=== PATIENT | male | born 1950 | race Caucasian/White ===

== ENCOUNTER 2020-11-22 07:06 | Outpatient (REF) | payer MEDICARE, SELFPAY ==
[2020-11-22 11:41] LABS: Alanine Aminotransferase 23 U/L (0-40); Albumin Level 3.9 g/dL (3.5-5.0); Alkaline Phosphatase 92 U/L (39-117); Anion Gap 13 (12-20); Aspartate Amino Transferase 17 U/L (5-37); Bilirubin Total 0.5 mg/dL (0.0-1.0); Blood Urea Nitrogen 16 mg/dL (9-16); Calcium 9.1 mg/dL (8.4-10.2); Carbon Dioxide 28 mmol/L (22-29); Chloride 104 mmol/L (96-108); Cholesterol 168 mg/dL; Estimated Glomerular Filt Rate > 60; Glucose Random 92 mg/dL (60-115); HDL Cholesterol 33 mg/dL; LDL Cholesterol Calculated 94 mg/dl; Potassium 4.2 mmol/L (3.3-5.1); Sodium 141 mmol/L (135-145); Total Protein 6.6 g/dL (6.5-8.0); Triglycerides 206 mg/dL
== END 2020-11-22 07:07 | disposition home or self-care (01) ==
LOC: HO.WFDLDS 07:06
PROVIDERS: Visit Provider Family Medicine
DX: Z00.00 Encounter for general adult medical examination without abnormal findings (principal)
CPT/HCPCS: 36415; 80053; 80061; 84443

== ENCOUNTER 2020-12-07 12:18 | Outpatient (REF) | payer MEDICARE, SELFPAY ==
[2020-12-07 14:41] LABS: Cholesterol 195 mg/dL; HDL Cholesterol 34 mg/dL; LDL Cholesterol Calculated 113 mg/dl; Triglycerides 240 mg/dL
[2020-12-07 14:49] LABS: Prostate Specific Antigen Scr 1.28 ng/mL (<0.05-4.0)
== END 2020-12-07 12:19 | disposition home or self-care (01) ==
LOC: HO.WFDLDS 12:18
PROVIDERS: Visit Provider Family Medicine
DX: Z12.5 Encounter for screening for malignant neoplasm of prostate (principal); E78.6 Lipoprotein deficiency
CPT/HCPCS: 36415; 80061; 84153

== ENCOUNTER 2021-04-27 07:07 | Outpatient (REF) | payer MEDICARE, SELFPAY | END 2021-04-27 07:08 | disposition home or self-care (01) | LOC: HO.HOSX 07:07 | PROVIDERS: Visit Provider Physician Assistant | DX: Z13.89 Encounter for screening for other disorder (principal) ==

== ENCOUNTER 2022-02-14 08:06 | Outpatient (REF) | payer MEDICARE, SELFPAY ==
[2022-02-14 11:02] LABS: Hematocrit 48.9 % (42.0-52.0); Hemoglobin 16.5 g/dl (14.0-18.0); Mean Corpuscular HGB Conc 33.7 g/dl (31.0-36.0); Mean Corpuscular Hemoglobin 31.9 pg (27.0-33.0); Mean Corpuscular Volume 94.6 fL (80.0-98.0); Mean Platelet Volume 10.7 fL (9.4-12.4); Platelet Count 323 X10*3/uL (160-400); Red Blood Count 5.17 X10*6/uL (4.60-5.80); Red Cell Distribution Width 14.3 % (11.0-16.0); White Blood Count 12.3 X10*3/uL (4.8-10.8)
[2022-02-14 11:48] LABS: Alanine Aminotransferase 27 U/L (0-40); Albumin Level 3.8 g/dL (3.5-5.0); Alkaline Phosphatase 97 U/L (39-117); Anion Gap 13 (12-20); Aspartate Amino Transferase 19 U/L (5-37); Bilirubin Total 0.4 mg/dL (0.0-1.0); Blood Urea Nitrogen 9 mg/dL (9-16); Calcium 8.4 mg/dL (8.4-10.2); Carbon Dioxide 23 mmol/L (22-29); Chloride 105 mmol/L (96-108); Cholesterol 186 mg/dL; Estimated Glomerular Filt Rate > 60; Glucose Fasting 113 mg/dL (60-99); HDL Cholesterol 40 mg/dL; LDL Cholesterol Calculated 82 mg/dl; Potassium 3.8 mmol/L (3.3-5.1); Sodium 137 mmol/L (135-145); TSH reflex Free T4 1.14 uIU/mL (0.32-4.0); Total Protein 6.8 g/dL (6.5-8.0); Triglycerides 323 mg/dL
== END 2022-02-14 08:07 | disposition home or self-care (01) ==
LOC: HO.WFDLDS 08:06
PROVIDERS: Visit Provider Hospitalist
DX: Z00.00 Encounter for general adult medical examination without abnormal findings (principal); M54.12 Radiculopathy, cervical region
CPT/HCPCS: 36415; 80053; 80061; 84443; 85027

== ENCOUNTER 2022-02-27 11:25 | Outpatient (REF) | payer MEDICARE, SELFPAY ==
[2022-02-27 14:14] LABS: MANUAL DIFF FLAG NO
[2022-02-27 14:22] LABS: Basophils Absolute Auto 0.1 X10*3/uL (0.0-0.2); Basophils Percent Auto 1.3 % (0-2); Eosinophils Absolute Auto 0.5 X10*3/uL (0.0-0.4); Eosinophils Percent Auto 5.2 % (0-4); Hematocrit 47.3 % (42.0-52.0); Hemoglobin 16.1 g/dl (14.0-18.0); Imm Gran Abs Auto 0.07 X10*3/uL (0.00-0.03); Imm Gran Pct Auto 0.7 % (0.0-0.4); Lymphocytes Absolute Auto 2.2 X10*3/uL (1.2-4.9); Lymphocytes Percent Auto 21.6 % (20-40); Mean Corpuscular Hemoglobin 32.3 pg (27.0-33.0); Mean Platelet Volume 10.8 fL (9.4-12.4); Monocytes Absolute Auto 0.9 X10*3/uL (0.1-1.2); Monocytes Percent Auto 8.5 % (2-11); Neutrophils Absolute Auto 6.5 x10*3/uL (2.0-8.3); Neutrophils Percent Auto 62.7 % (45-73); Platelet Count 329 X10*3/uL (160-400); Red Blood Count 4.98 X10*6/uL (4.60-5.80); Red Cell Distribution Width 14.5 % (11.0-16.0); White Blood Count 10.3 X10*3/uL (4.8-10.8)
== END 2022-02-27 11:26 | disposition home or self-care (01) ==
LOC: HO.WFDLDS 11:25
PROVIDERS: Visit Provider Hospitalist
DX: D72.829 Elevated white blood cell count, unspecified (principal)
CPT/HCPCS: 36415; 85025

== ENCOUNTER 2022-09-10 11:38 | Outpatient (REF) | payer MEDICARE, SELFPAY ==
[2022-09-10 14:22] LABS: Hematocrit 45.9 % (42.0-52.0); Hemoglobin 15.3 g/dl (14.0-18.0); Mean Corpuscular HGB Conc 33.3 g/dl (31.0-36.0); Mean Corpuscular Hemoglobin 32.3 pg (27.0-33.0); Mean Corpuscular Volume 96.8 fL (80.0-98.0); Mean Platelet Volume 10.6 fL (9.4-12.4); Platelet Count 370 X10*3/uL (160-400); Red Blood Count 4.74 X10*6/uL (4.60-5.80); Red Cell Distribution Width 14.6 % (11.0-16.0)
[2022-09-10 15:05] LABS: Anion Gap 15 (12-20); Atypical Lymph Absolute Manual 0.2 x10*3/uL; Atypical Lymphs Percent Manual 1 % (0-6); Band Neutrophils Percent 3 % (3-5); Basophils Abs Manual 0.2 X10*3/uL (0.0-0.2); Basophils Percent Manual 1 % (0-2); Blood Urea Nitrogen 12 mg/dL (9-16); Calcium 8.2 mg/dL (8.4-10.2); Carbon Dioxide 27 mmol/L (22-29); Chloride 104 mmol/L (96-108); Eosinophils Absolute Manual 0.2 X10*3/uL (0.0-0.4); Eosinophils Percent Manual 1 % (0-4); Estimated Glomerular Filt Rate > 60; Glucose Random 92 mg/dL (60-115); Lymphocytes Absolute Manual 3.8 X10*3/uL (1.2-4.9); Lymphocytes Percent Manual 19 % (20-40); Monocytes Percent Manual 10 % (2-11); Neutrophils Absolute Manual 13.6 X10*3/uL (2.0-8.3); Neutrophils Percent Manual 65 % (45-73); Potassium 3.5 mmol/L (3.3-5.1); Sodium 142 mmol/L (135-145)
[2022-09-10 15:11] LABS: Platelet Estimate NORMAL (NORMAL); Platelet Morphology Comment NORMAL; RBC Morphology NORMAL
== END 2022-09-10 11:39 | disposition home or self-care (01) ==
LOC: HO.WFDLDS 11:38
PROVIDERS: Visit Provider Family Medicine
DX: Z00.00 Encounter for general adult medical examination without abnormal findings (principal); J44.9 Chronic obstructive pulmonary disease, unspecified
CPT/HCPCS: 36415; 80048; 85007; 85027

== ENCOUNTER → 2022-10-22 11:52 | Outpatient (BNVA) | payer MEDICARE, SELFPAY | PROVIDERS: PCP Family Medicine; Visit Provider Physician Assistant | DX: K59.00 Constipation, unspecified (principal); R13.10 Dysphagia, unspecified; Z87.19 Personal history of other diseases of the digestive system | CPT/HCPCS: 99202 ==

== ENCOUNTER 2023-03-26 10:17 | Outpatient (AMB) | payer MEDICARE, SELFPAY ==
--- NOTE | 2023-03-26 10:23 | MHC.PC.OV ---
Vital Signs 03/26/23 10:25 Height 5 ft 6 in Weight 189 lb 4 oz BMI 30.5 BP 122/78 Blood Pressure Location Lt brachial Position Sitting Pulse 75 Pulse Source Pulse Oximeter Temp 97.8 F Temp Source Oral Pulse Oximetry (%) 95 Oxygen Delivery Method Room Air Intake Visit Reasons: Abdominal Pain Intake Note: Patient is here with abdominal pain for the last 2 weeks. There times when he did not make it to the bathroom. Allergies No Known Allergies Allergy (Verified 03/26/23 10:28) Tobacco use date assessed: 03/26/23 Fall risk assessment: No Falls in past year Last assessed Fall Risk: 03/26/23 Dental Screening Dental Screen Date: 03/26/23 Did you have a dental visit in the last 12 months?: No Did you have a dental problem in the last 6 months where you did not have access to dental care?: No Was dental information given to patient?: Patient declined HPI Abdominal Pain HPI Details 72 y/o male presents with complaints of abdominal pain x2 weeks and diarrhea. He reports there had been times when he had not been able to make it to the bathroom. He reports every morning between 5am - 8am he had been experiencing abdominal pain and diarrhea. He also reports stool incontinence but does note that sometimes he feels like he is unable to go. He has been taking peptobismal which does not help. He denies any burning. He denies excessive gas. Pt notes he drinks a couple of the 16 ounce water bottles a day. [facility] Medical History COPD (chronic obstructive pulmonary disease) Esophagitis Hearing loss Hernia, hiatal OCD (obsessive compulsive disorder) Shoulder arthritis Sleep apnea Surgical History History of placement of ear tubes Hx of cholecystectomy Family History Father Advanced dementia Mother Stroke Heart problem Social History Housing: House Alcohol intake: former Year quit: 2019 Patient Tobacco Use Status: Current someday Tobacco user Tobacco use type: Cigarette Cigarettes Per Day: 6 Years Smoked: 50 e-Cigarette/Vaping Use: Never Used service: No Current occupational status: disabled Current occupational exposures/hazards: No Cognitive needs: No Hearing needs: No Vision needs: No Questionnaire Thrive Questionnaire Date Thrive assessed: 10/09/22 ANETTE-7 AMB Questionnaire ANETTE-7 Date ANETTE - 7 assessed: 01/21/23 Source: Developed by Drs. Lui Mckeon, Mitra Lux, Efrem Chacko and colleagues, with an educational mae from [employer]. Review of Systems Const Denies chills, Denies fatigue, Denies fever(s), Denies headache(s) and Denies weakness ENT Denies dizziness and Denies headache(s) Card Denies dyspnea Resp Denies cough, Denies dyspnea, Denies wheezing and Denies other (shortness of breath) GI Reports abdominal pain, Reports fecal incontinence and Reports diarrhea Musc Denies numbness and Denies tingling Neuro Denies dizziness, Denies headache(s), Denies numbness, Denies tingling and Denies weakness Psych Denies anxiety and Denies depression Endo Denies fatigue Aller/Immun Denies wheezing Physical exam (Primary Care) Vital Signs: Last Vital Signs Temp 97.8 F 03/26/23 10:25 Pulse 75 03/26/23 10:25 BP 122/78 03/26/23 10:25 Pulse Ox 95 03/26/23 10:25 Oxygen Delivery Method Room Air 03/26/23 10:25 BMI result Body Mass Index 30.5 Tobacco/Smoking Status: Tobacco use Status Tobacco use date assessed 03/26/23 03/26/23 10:32 Patient Tobacco Use Status Current someday Tobacco 03/26/23 10:32 Tobacco use type Cigarette 03/26/23 10:32 e-Cigarette/Vaping Use Never Used 03/26/23 10:32 Thrive Assessment: Date of Thrive Assessment Date Thrive assessed 10/09/22 03/26/23 10:32 Const General: well developed; No acute distress Nutritional Appearance: well nourished Orientation/consciousness: patient oriented x3 HENMT Head: Yes normocephalic and Yes atraumatic Eyes General: appearance normal, both eyes and all related structures Pupils: Equal, round and reactive pupils present EOM: EOMs intact bilaterally Resp Effort & Inspection: normal respiratory effort Neuro General: patient oriented x3 and gait normal Cranial nerves: Yes Equal, round and reactive pupils present Psych Affect: normal affect Assessment and Plan Assessment & Plan (1) Abdominal pain: Code(s): R10.9 - Unspecified abdominal pain Plan: Abdominal pain with constipation and diarrhea. Possibly secondary to constipation but will check an x-ray to rule out partial obstruction. Will check labs to rule out infection Increase hydration Soluble fiber Will follow-up on labs and imaging and call patient if action is required. He will let me know if not improving. Would refer to GI (2) Diarrhea: Code(s): R19.7 - Diarrhea, unspecified Orders: Orders Comprehensive Met. Panel Today R10.9 - Unspecified abdominal pain Complete Blood Count Auto Diff Today R10.9 - Unspecified abdominal pain, Z00.00 - Encounter for general adult medical examination without abnormal findings CDiff Gene PCR Today R10.9 - Unspecified abdominal pain GI Panel Today R10.9 - Unspecified abdominal pain UA and rflx microscopic Today R10.9 - Unspecified abdominal pain, Z00.00 - Encounter for general adult medical examination without abnormal findings XR KUB Today R10.9 - Unspecified abdominal pain Medications: New calcium polycarbophil (FiberCon) 625 mg PO BID 60 tabs 2RF 30 days Coding Level of Care Code Est Pt Level 3 (21064) Diagnoses Abdominal pain R10.9 Diarrhea R19.7
[2023-03-26 10:25] VITALS: BP 122/78; PULSE 75; TEMP 36.6; O2SAT 95; BMI 30.5
== END 2023-03-26 11:55 | disposition home or self-care (01) ==
PROVIDERS: PCP Family Medicine; Visit Provider Family Medicine
DX: R10.9 Unspecified abdominal pain (principal); R19.7 Diarrhea, unspecified
CPT/HCPCS: 99213

== ENCOUNTER 2023-03-26 11:55 | Outpatient (REF) | payer MEDICARE, SELFPAY ==
[2023-03-26 14:33] LABS: MANUAL DIFF FLAG NO
[2023-03-26 14:37] LABS: Basophils Absolute Auto 0.2 X10*3/uL (0.0-0.2); Basophils Percent Auto 1.1 % (0-2); Eosinophils Absolute Auto 0.4 X10*3/uL (0.0-0.4); Hemoglobin 17.8 g/dl (14.0-18.0); Imm Gran Pct Auto 0.7 % (0.0-0.4); Lymphocytes Absolute Auto 2.3 X10*3/uL (1.2-4.9); Lymphocytes Percent Auto 16.7 % (20-40); Mean Corpuscular HGB Conc 34.2 g/dl (31.0-36.0); Mean Corpuscular Hemoglobin 31.6 pg (27.0-33.0); Mean Corpuscular Volume 92.4 fL (80.0-98.0); Mean Platelet Volume 10.8 fL (9.4-12.4); Monocytes Absolute Auto 1.2 X10*3/uL (0.1-1.2); Monocytes Percent Auto 8.5 % (2-11); Neutrophils Absolute Auto 9.4 x10*3/uL (2.0-8.3); Platelet Count 366 X10*3/uL (160-400); Red Blood Count 5.63 X10*6/uL (4.60-5.80); Red Cell Distribution Width 13.9 % (11.0-16.0); White Blood Count 13.5 X10*3/uL (4.8-10.8)
[2023-03-26 15:09] LABS: Alanine Aminotransferase 26 U/L (0-40); Albumin Level 3.8 g/dL (3.5-5.0); Alkaline Phosphatase 80 U/L (39-117); Anion Gap 10 (12-20); Aspartate Amino Transferase 21 U/L (5-37); Bilirubin Total 0.6 mg/dL (0.0-1.0); Blood Urea Nitrogen 8 mg/dL (9-16); Calcium 9.2 mg/dL (8.4-10.2); Carbon Dioxide 27 mmol/L (22-29); Chloride 105 mmol/L (96-108); Estimated Glomerular Filt Rate > 60; Glucose Random 92 mg/dL (60-115); Potassium 3.2 mmol/L (3.3-5.1); Sodium 139 mmol/L (135-145); Total Protein 6.7 g/dL (6.5-8.0)
== END 2023-03-26 11:56 | disposition home or self-care (01) ==
LOC: HO.WFDLDS 11:55
PROVIDERS: Visit Provider Family Medicine
DX: Z00.00 Encounter for general adult medical examination without abnormal findings (principal); R10.9 Unspecified abdominal pain
CPT/HCPCS: 36415; 80053; 85025

== ENCOUNTER 2023-03-28 15:09 | Outpatient (REF) | payer MEDICARE, SELFPAY ==
--- NOTE | ~2023-03-28 | XR_ITS ---
EXAMINATION: XR ABDOMEN KUB CLINICAL INDICATION: Abdominal pain COMPARISON: None available. TECHNIQUE: AP view of the abdomen. FINDINGS: No dilated loops of bowel or air-fluid levels to suggest obstruction. No evidence of free air. No calcifications. Surgical clips in the right upper quadrant suggestive of previous cholecystectomy. Mild degenerative changes of the lower lumbar spine and hip joints. XR/XR KUB IMPRESSION: Unremarkable examination.
== END 2023-03-28 15:10 | disposition home or self-care (01) ==
LOC: HO.XRAY 15:09
PROVIDERS: PCP Family Medicine; Visit Provider Family Medicine
DX: R10.9 Unspecified abdominal pain (principal)
CPT/HCPCS: 74018

== ENCOUNTER 2023-04-11 11:19 | Outpatient (REF) | payer MEDICARE, SELFPAY ==
[2023-04-11 15:18] LABS: Appearance Urine Clear; Color Urine Dark Yellow; Glucose Urine UA Negative (Negative); Leukocyte Esterase Urine Negative (Negative); Nitrite Urine Negative (Negative); Urine Blood Negative (Negative); Urine Ketones Negative (Negative); Urine Protein Trace mg/dL (Neg-Trace)
[2023-04-11 17:49] LABS: CDiff Gene PCR NEGATIVE (Negative)
== END 2023-04-11 11:20 | disposition home or self-care (01) ==
LOC: HO.WFDLDS 11:19
PROVIDERS: Visit Provider Family Medicine
DX: Z00.00 Encounter for general adult medical examination without abnormal findings (principal); R10.9 Unspecified abdominal pain
CPT/HCPCS: 81003; 87493

== ENCOUNTER 2023-04-17 13:24 | Outpatient (AMB) | payer MEDICARE, SELFPAY ==
[2023-04-17 13:42] VITALS: BP 120/70; PULSE 63; O2SAT 97; BMI 29.7
--- NOTE | 2023-04-17 13:42 | MHC.PC.OV ---
Vital Signs 04/17/23 13:42 Height 5 ft 6 in Weight 184 lb 2 oz BMI 29.7 BP 120/70 Blood Pressure Location Lt brachial Position Sitting Pulse 63 Pulse Source Pulse Oximeter Pulse Oximetry (%) 97 Oxygen Delivery Method Room Air Intake Visit Reasons: f/u abdomen pain Intake Note: Patient is here to follow up on abdominal pain, not feeling much better, and a lot of soft stool going through him. Allergies No Known Allergies Allergy (Verified 04/17/23 13:43) Tobacco use date assessed: 04/17/23 Fall risk assessment: No Falls in past year Last assessed Fall Risk: 04/17/23 HPI f/u abdomen pain HPI Details 72 y/o male presents to f/u abdominal pain. Had recommended him to increase hydration last office visit and prescribed FiberCon. KUB X-ray 03/28/23 was unremarkable. Pt reports ongoing abd. pain. He reports soft stools. They report he continues drinking plenty of water. He does not have a GI specialist. [facility] Medical History COPD (chronic obstructive pulmonary disease) Esophagitis Hearing loss Hernia, hiatal OCD (obsessive compulsive disorder) Shoulder arthritis Sleep apnea Surgical History History of placement of ear tubes Hx of cholecystectomy Family History Father Advanced dementia Mother Stroke Heart problem Social History Housing: House Alcohol intake: former Year quit: 2019 Patient Tobacco Use Status: Current someday Tobacco user Tobacco use type: Cigarette Cigarettes Per Day: 6 Years Smoked: 50 e-Cigarette/Vaping Use: Never Used service: No Current occupational status: disabled Current occupational exposures/hazards: No Cognitive needs: No Hearing needs: No Vision needs: No Questionnaire Thrive Questionnaire Date Thrive assessed: 10/09/22 ANETTE-7 AMB Questionnaire ANETTE-7 Date ANETTE - 7 assessed: 01/21/23 Source: Developed by Drs. Lui Mckeon, Mitra Lux, Efrem Chacko and colleagues, with an educational mae from [employer]. Physical exam (Primary Care) Vital Signs: Last Vital Signs Pulse 63 04/17/23 13:42 BP 120/70 04/17/23 13:42 Pulse Ox 97 04/17/23 13:42 Oxygen Delivery Method Room Air 04/17/23 13:42 BMI result Body Mass Index 29.7 Tobacco/Smoking Status: Tobacco use Status Tobacco use date assessed 04/17/23 04/17/23 13:44 Patient Tobacco Use Status Current someday Tobacco 04/17/23 13:44 Tobacco use type Cigarette 04/17/23 13:44 e-Cigarette/Vaping Use Never Used 04/17/23 13:44 Thrive Assessment: Date of Thrive Assessment Date Thrive assessed 10/09/22 04/17/23 13:44 Assessment and Plan Assessment & Plan (1) Abdominal pain: Code(s): R10.9 - Unspecified abdominal pain Plan: Ongoing abdominal discomfort/pain and diarrhea. High white count at last lab draw but patient currently in no acute distress does not look ill. Has not gotten GI panel done yet. C diff was negative. Also has mildly low potassium level. Will repeat CBC and labs including potassium and he will also get GI panel done. If no evidence of GI tract infection, he can use Imodium Advised he hydrate well and eat small frequent meals of foods that least exacerbate symptoms. Referred to GI (2) Diarrhea: Code(s): R19.7 - Diarrhea, unspecified Plan: As above (3) Leukocytosis: Code(s): D72.829 - Elevated white blood cell count, unspecified Plan: Elevated white count. No fevers. Patient looks well and is in no acute distress Rechecking CBC If own related to GI issues, may need a referral to Hematology-Oncology. (4) Hypokalemia: Code(s): E87.6 - Hypokalemia Plan: Mildly low potassium and patient has had chronic diarrhea which is the most likely cause of his low potassium level. Encouraged regular meals as tolerated working on controlling diarrhea (5) Cervical radiculopathy: Code(s): M54.12 - Radiculopathy, cervical region Plan: Left arm and hand tingling and numbness with some mild neck pain Likely cervical radiculopathy. He has no significant weakness of his left upper extremity. Circulation is normal. Start physical therapy He will let me know if it is not improving and we can refer him to Ortho for consideration of injection therapy Trial diclofenac gel. Orders: Orders Comprehensive Met. Panel Today R10.9 - Unspecified abdominal pain GI Panel Today R19.7 - Diarrhea, unspecified Leukocytes Stool Qualitative Today R19.7 - Diarrhea, unspecified Complete Blood Count Auto Diff Today R10.9 - Unspecified abdominal pain, Z00.00 - Encounter for general adult medical examination without abnormal findings PT Evaluation and Treatment Today M54.12 - Radiculopathy, cervical region Referrals Gastroenterology Referral R10.9 - Unspecified abdominal pain, R19.7 - Diarrhea, unspecified Medications: New diclofenac sodium 1% apply to single elbow, wrist or hand; for hand includes palm/fingers/back of hand 2 grams topical QID 100 grams 1RF 30 days Coding Level of Care Code Est Pt Level 4 (05389) Diagnoses Abdominal pain R10.9 Diarrhea R19.7 Leukocytosis D72.829 Hypokalemia E87.6 Cervical radiculopathy M54.12
== END 2023-04-17 14:30 | disposition home or self-care (01) ==
PROVIDERS: PCP Family Medicine; Visit Provider Family Medicine
DX: R10.9 Unspecified abdominal pain (principal); R19.7 Diarrhea, unspecified; D72.829 Elevated white blood cell count, unspecified; E87.6 Hypokalemia; M54.12 Radiculopathy, cervical region
CPT/HCPCS: 99214

== ENCOUNTER 2023-04-17 16:18 | Outpatient (REF) | payer MEDICARE, SELFPAY ==
[2023-04-18 15:41] LABS: Adenovirus F 40/41 Not Detected (Not Detect.); Astrovirus Not Detected (Not Detect.); Campylobacter Not Detected (Not Detect.); Cryptosporidium Not Detected (Not Detect.); Cyclospora cayetanensis Not Detected (Not Detect.); E. coli EAEC Not Detected (Not Detect.); E. coli EPEC Not Detected (Not Detect.); E. coli ETEC Not Detected (Not Detect.); E. coli STEC Not Detected (Not Detect.); Entamoeba histolytica Not Detected (Not Detect.); Giardia lamblia Not Detected (Not Detect.); Norovirus GI/GII Not Detected (Not Detect.); Plesiomonas shigelloides Not Detected (Not Detect.); Rotavirus A Not Detected (Not Detect.); Salmonella Not Detected (Not Detect.); Sapovirus Not Detected (Not Detect.); Shigella sp./EIEC Not Detected (Not Detect.); Vibrio Not Detected (Not Detect.); Vibrio Cholerae Not Detected (Not Detect.); Yersinia enterocolitica Not Detected (Not Detect.)
== END 2023-04-17 16:19 | disposition home or self-care (01) ==
LOC: HO.LNP 16:18
PROVIDERS: Visit Provider Family Medicine
DX: R19.7 Diarrhea, unspecified (principal)
CPT/HCPCS: 87507

== ENCOUNTER 2023-04-18 12:27 | Outpatient (REF) | payer MEDICARE, SELFPAY ==
[2023-04-18 14:27] LABS: MANUAL DIFF FLAG NO
[2023-04-18 14:40] LABS: Basophils Absolute Auto 0.1 X10*3/uL (0.0-0.2); Basophils Percent Auto 1.1 % (0-2); Eosinophils Absolute Auto 0.6 X10*3/uL (0.0-0.4); Eosinophils Percent Auto 4.8 % (0-4); Hematocrit 52.7 % (42.0-52.0); Hemoglobin 17.9 g/dl (14.0-18.0); Imm Gran Abs Auto 0.06 X10*3/uL (0.00-0.03); Imm Gran Pct Auto 0.5 % (0.0-0.4); Lymphocytes Absolute Auto 2.3 X10*3/uL (1.2-4.9); Mean Corpuscular Hemoglobin 31.7 pg (27.0-33.0); Mean Corpuscular Volume 93.3 fL (80.0-98.0); Mean Platelet Volume 11.5 fL (9.4-12.4); Monocytes Absolute Auto 1.2 X10*3/uL (0.1-1.2); Monocytes Percent Auto 9.4 % (2-11); Neutrophils Absolute Auto 8.6 x10*3/uL (2.0-8.3); Neutrophils Percent Auto 66.2 % (45-73); Platelet Count 297 X10*3/uL (160-400); Red Blood Count 5.65 X10*6/uL (4.60-5.80); Red Cell Distribution Width 14.2 % (11.0-16.0)
[2023-04-18 15:02] LABS: Leukocytes Stool Qualitative NEGATIVE (NEGATIVE)
[2023-04-18 15:08] LABS: Alanine Aminotransferase 39 U/L (0-40); Albumin Level 3.6 g/dL (3.5-5.0); Alkaline Phosphatase 82 U/L (39-117); Anion Gap 16 (12-20); Aspartate Amino Transferase 35 U/L (5-37); Bilirubin Total 0.6 mg/dL (0.0-1.0); Blood Urea Nitrogen 7 mg/dL (9-16); Calcium 9.1 mg/dL (8.4-10.2); Carbon Dioxide 25 mmol/L (22-29); Chloride 103 mmol/L (96-108); Estimated Glomerular Filt Rate > 60; Glucose Random 80 mg/dL (60-115); Potassium 3.7 mmol/L (3.3-5.1); Sodium 140 mmol/L (135-145); Total Protein 6.9 g/dL (6.5-8.0)
== END 2023-04-18 12:28 | disposition home or self-care (01) ==
LOC: HO.WFDLDS 12:27
PROVIDERS: Visit Provider Family Medicine
DX: Z00.00 Encounter for general adult medical examination without abnormal findings (principal); R10.9 Unspecified abdominal pain; R19.7 Diarrhea, unspecified
CPT/HCPCS: 36415; 80053; 85025; 89055

== ENCOUNTER 2023-04-22 11:52 | Outpatient (AMB) | payer MEDICARE, SELFPAY ==
--- NOTE | 2023-04-22 12:01 | A.OFFPC_ITS ---
Vital Signs 04/22/23 12:02 Height 5 ft 6 in Weight 185 lb BMI 29.9 BP 124/76 Blood Pressure Location Lt brachial Position Sitting Respiration 12 Pulse 84 Pulse Source Pulse Oximeter Temp 97.1 F Temp Source Temporal Artery Scan Pulse Oximetry (%) 94 Oxygen Delivery Method Room Air Intake Visit Reasons: mood disorder [employer] Required: No Accompanied by: Self / Same As Patient Allergies No Known Allergies Allergy (Verified 04/22/23 12:07) Tobacco use date assessed: 04/17/23 Fall risk assessment: No Falls in past year Last assessed Fall Risk: 04/22/23 Dental Screening Dental Screen Date: 04/22/23 Did you have a dental visit in the last 12 months?: No Did you have a dental problem in the last 6 months where you did not have access to dental care?: No Was dental information given to patient?: Yes HPI mood disorder HPI Details 72 y/o male presents today to discuss mo od disorder. Also f/u GI issues. He had ongoing abdominal pain and diarrhea. He notes he continues to drink plenty of water and notes his diarrhea has improved. Pt notes he is on fluoxetine 20mg which he has been using to control his anxiety/irritability. He notes he is no longer taking quetiapine 75mg. [facility] Medical History OCD (obsessive compulsive disorder) Sleep apnea Shoulder arthritis Hearing loss Esophagitis Hernia, hiatal COPD (chronic obstructive pulmonary disease) Surgical History History of placement of ear tubes Hx of cholecystectomy Family History Father Advanced dementia Mother Stroke Heart problem Social History Housing: Apartment Alcohol intake: former Year quit: 2019 Patient Tobacco Use Status: Current someday Tobacco user Tobacco use type: Cigarette Cigarettes Per Day: 6 Years Smoked: 50 e-Cigarette/Vaping Use: Never Used service: No Current occupational status: retired and disabled Current occupational exposures/hazards: No Cognitive needs: No Hearing needs: No Vision needs: No Questionnaire PHQ-9 Over the last 2 weeks, how often have you been bothered by any of the following problems? 1. Little interest or pleasure in doing things: not at all 2. Feeling down, depressed, or hopeless: not at all 3. Trouble falling or staying asleep, or sleeping too much: not at all 4. Feeling tired or having little energy: not at all 5. Poor appetite or overeating: not at all 6. Feeling bad about yourself - or that you are a failure or have let yourself or your family down: not at all 7. Trouble concentrating on things, such as reading the newspaper or watching television: not at all 8. Moving or speaking so slowly that other people could have noticed. Or the opposite - being so fidgety or restless that you have been moving around a lot more than usual: not at all 9. Thoughts that you would be better off or of hurting yourself in some way: not at all Total score: 0 Depression Screening Interpretation: Negative 81561 - PHQ-9 Billing: Yes Source: Developed by Drs. Lui Mckeon, Efrem Rizvi and colleagues, with an educational mae from [employer] Thrive Questionnaire Date Thrive assessed: 10/09/22 ANETTE-7 AMB Questionnaire ANETTE-7 Date ANETTE - 7 assessed: 04/22/23 Feeling nervous, anxious, or on edge: 0 = Not at all Not being able to stop or control worryin = Not at all Worrying too much about different things: 0 = Not at all Trouble relaxin = Not at all Being so restless that it is hard to sit still: 0 = Not at all Becoming easily annoyed or irritable: 0 = Not at all Feeling afraid as if something awful might happen: 0 = Not at all Total ANETTE-7 score (0-4 normal; 5-9 mild; 10-14 moderate; 15-21 severe): 0 Source: Developed by Drs. Lui Mckeon, Efrem Rizvi and colleagues, with an educational mae from [employer] ANETTE-7 Assessment Billing ANETTE-7 Assessment Tool: ANETTE-7 Assessment 25675 Review of Systems Const Denies chills, Denies fatigue, Denies fever(s), Denies headache(s) and Denies weakness ENT Denies dizziness and Denies headache(s) Card Denies chest pain, Denies lightheadedness, Denies dyspnea and Denies other (Palpitations) Resp Denies cough, Denies dyspnea, Denies wheezing and Denies other ( shortness of breath) Musc Denies numbness and Denies tingling Neuro Denies dizziness, Denies headache(s), Denies numbness, Denies tingling, Denies paresthesias and Denies weakness Psych Denies anxiety and Denies depression Endo Denies fatigue Aller/Immun Denies wheezing Physical exam (Primary Care) Vital Signs: Last Vital Signs Temp 97.1 F 04/22/23 12:02 Pulse 84 04/22/23 12:02 Resp 12 04/22/23 12:02 BP 124/76 04/22/23 12:02 Pulse Ox 94 04/22/23 12:02 Oxygen Delivery Method Room Air 04/22/23 12:02 BMI result Body Mass Index 29.9 Tobacco/Smoking Status: Tobacco use Status Tobacco use date assessed 04/17/23 04/22/23 12:09 Patient Tobacco Use Status Current someday Tobacco 04/22/23 12:09 Tobacco use type Cigarette 04/22/23 12:09 e-Cigarette/Vaping Use Never Used 04/22/23 12:09 PHQ-9: PHQ-9 Score PHQ-9: Total score 0 04/22/23 12:51 Depression Screening Interpretation: Negative Thrive Assessment: Date of Thrive Assessment Date Thrive assessed 10/09/22 04/22/23 12:09 Const General: no acute distress and well developed Nutritional Appearance: well nourished Orientation/consciousness: patient oriented x3 [facility] Head: Yes normocephalic and Yes atraumatic Eyes General: appearance normal, both eyes and all related structures Pupils: Equal, round and reactive pupils present EOM: EOMs intact bilaterally Resp Other: Clear with some secretion sounds Effort & Inspection: normal respiratory effort Cardio Rate: regular rate Rhythm: regular rhythm Heart sounds: S1 normal heart sound present, S2 normal heart sound present, no gallops, no murmurs and no rubs Neuro General: patient oriented x3 and gait normal Cranial nerves: Yes Equal, round and reactive pupils present Psych Affect: normal affect Assessment and Plan Assessment & Plan (1) Abdominal pain: Code(s): R10.9 - Unspecified abdominal pain Plan: Improving Stool studies and fecal leukocytes negative Avoid trigger foods Hydrate well (2) Diarrhea: Code(s): R19.7 - Diarrhea, unspecified Plan: Improved/improving Avoid trigger foods Hydrate well Stool studies and fecal leukocytes negative for infection. Can use a small amount of Imodium (3) Anxiety: Code(s): F41.9 - Anxiety disorder, unspecified Plan: Anxiety/irritability. He notes that fluoxetine helpful with this. Was also on quetiapine but is no longer on this and still has some difficulty with sleep and irritability at night. Continue fluoxetine and resume quetiapine at 50 mg q.h.s. (4) Smoker: Code(s): F17.200 - Nicotine dependence, unspecified, uncomplicated Plan: Smoker in patient with COPD. Lungs are clear with some secretions sounds and advised cessation of smoking. Continue inhaled medications as prescribed Also advised deep breath and he should follow-up with his carburizer. Medications: Changed From quetiapine 75 mg PO DAILY To quetiapine 50 mg (2 x 25 mg) PO DAILY 60 tabs 3RF 30 days Refilled fluoxetine 20 mg PO DAILY 90 caps 1RF 90 days Coding Level of Care Code Est Pt Level 4 (89652) Diagnoses Abdominal pain R10.9 Diarrhea R19.7 Anxiety F41.9 Smoker F17.200 Additional Codes ANETTE-7 Assessment Billing - ANETTE-7 Assessment Tool: ANETTE-7 Assessment 19309 ([id number])
[2023-04-22 12:02] VITALS: BP 124/76; PULSE 84; RESP 12; TEMP 36.2; O2SAT 94; BMI 29.9
== END 2023-04-22 13:02 | disposition home or self-care (01) ==
PROVIDERS: PCP Family Medicine; Visit Provider Family Medicine
DX: R10.9 Unspecified abdominal pain (principal); R19.7 Diarrhea, unspecified; F41.9 Anxiety disorder, unspecified; F17.210 Nicotine dependence, cigarettes, uncomplicated
CPT/HCPCS: 99214

== ENCOUNTER 2023-05-12 11:04 | Outpatient (REF) | payer MEDICARE, SELFPAY ==
[2023-05-12 14:02] LABS: MANUAL DIFF FLAG NO
[2023-05-12 14:10] LABS: Basophils Absolute Auto 0.2 X10*3/uL (0.0-0.2); Basophils Percent Auto 1.3 % (0-2); Eosinophils Absolute Auto 0.5 X10*3/uL (0.0-0.4); Eosinophils Percent Auto 4.3 % (0-4); Hematocrit 49.9 % (42.0-52.0); Hemoglobin 16.5 g/dl (14.0-18.0); Imm Gran Abs Auto 0.12 X10*3/uL (0.00-0.03); Imm Gran Pct Auto 1.1 % (0.0-0.4); Lymphocytes Absolute Auto 1.8 X10*3/uL (1.2-4.9); Lymphocytes Percent Auto 15.8 % (20-40); Mean Corpuscular HGB Conc 33.1 g/dl (31.0-36.0); Mean Corpuscular Volume 93.8 fL (80.0-98.0); Mean Platelet Volume 10.9 fL (9.4-12.4); Monocytes Absolute Auto 1.2 X10*3/uL (0.1-1.2); Monocytes Percent Auto 10.8 % (2-11); Neutrophils Absolute Auto 7.6 x10*3/uL (2.0-8.3); Neutrophils Percent Auto 66.7 % (45-73); Platelet Count 309 X10*3/uL (160-400); Red Blood Count 5.32 X10*6/uL (4.60-5.80); Red Cell Distribution Width 14.1 % (11.0-16.0); White Blood Count 11.3 X10*3/uL (4.8-10.8)
[2023-05-12 14:44] LABS: Alanine Aminotransferase 21 U/L (0-40); Albumin Level 3.4 g/dL (3.5-5.0); Alkaline Phosphatase 77 U/L (39-117); Anion Gap 13 (12-20); Aspartate Amino Transferase 19 U/L (5-37); Bilirubin Total 0.4 mg/dL (0.0-1.0); Blood Urea Nitrogen 5 mg/dL (9-16); Calcium 8.5 mg/dL (8.4-10.2); Carbon Dioxide 26 mmol/L (22-29); Chloride 103 mmol/L (96-108); Estimated Glomerular Filt Rate > 60; Glucose Random 74 mg/dL (60-115); Potassium 3.2 mmol/L (3.3-5.1); Sodium 139 mmol/L (135-145); Total Protein 6.2 g/dL (6.5-8.0)
== END 2023-05-12 11:05 | disposition home or self-care (01) ==
LOC: HO.WFDLDS 11:04
PROVIDERS: Visit Provider Family Medicine
DX: Z00.00 Encounter for general adult medical examination without abnormal findings (principal); R19.7 Diarrhea, unspecified
CPT/HCPCS: 36415; 80053; 85025

== ENCOUNTER 2023-05-13 15:23 | Outpatient (AMB) | payer MEDICARE, SELFPAY ==
[2023-05-13 15:31] VITALS: BP 122/78; PULSE 63; O2SAT 98; BMI 30.5
--- NOTE | 2023-05-13 15:31 | A.OFFPC_ITS ---
Vital Signs 05/13/23 15:31 Height 5 ft 6 in Weight 189 lb BMI 30.5 BP 122/78 Blood Pressure Location Lt brachial Position Sitting Pulse 63 Pulse Source Pulse Oximeter Pulse Oximetry (%) 98 Oxygen Delivery Method Room Air Intake Visit Reasons: f/u abdomen pain Intake Note: Patient is here to follow up n abdominal p0ain, which he states is no longer, no problems going to the bathroom lately. Allergies No Known Allergies Allergy (Verified 05/13/23 15:32) Tobacco use date assessed: 05/13/23 Fall risk assessment: No Falls in past year Last assessed Fall Risk: 05/13/23 HPI f/u abdomen pain HPI Details 72 y/o male presents to f/u abdominal pa in today. Abd. pain had been improving last office visit. Pt reports abd. pain continues to improve and states it has resolved. They report of a ? pustular psoriasis in one spot that does not seem to bother him. He reports he has had this for awhile. [facility] Medical History OCD (obsessive compulsive disorder) Sleep apnea Shoulder arthritis Hearing loss Esophagitis Hernia, hiatal COPD (chronic obstructive pulmonary disease) Surgical History History of placement of ear tubes Hx of cholecystectomy Family History Father Advanced dementia Mother Stroke Heart problem Social History Housing: Apartment Alcohol intake: former Year quit: 2019 Patient Tobacco Use Status: Current someday Tobacco user Tobacco use type: Cigarette Cigarettes Per Day: 6 Years Smoked: 50 e-Cigarette/Vaping Use: Never Used service: No Current occupational status: retired and disabled Current occupational exposures/hazards: No Cognitive needs: No Hearing needs: No Vision needs: No Questionnaire Thrive Questionnaire Date Thrive assessed: 10/09/22 ANETTE-7 AMB Questionnaire ANETTE-7 Date ANETTE - 7 assessed: 04/22/23 Source: Developed by Drs. Lui Mckeon, Mitra Lux, Efrem Chacko and colleagues, with an educational mae from [employer]. Review of Systems Const Denies chills, Denies fatigue, Denies fever(s), Denies headache(s) and Denies weakness ENT Denies dizziness and Denies headache(s) Card Denies chest pain, Denies lightheadedness, Denies dyspnea and Denies other (Palpitations) Resp Denies cough, Denies dyspnea, Denies wheezing and Denies other ( shortness of breath) Musc Denies numbness and Denies tingling Neuro Denies dizziness, Denies headache(s), Denies numbness, Denies tingling, Denies paresthesias and Denies weakness Psych Denies anxiety and Denies depression Endo Denies fatigue Aller/Immun Denies wheezing Physical exam (Primary Care) Vital Signs: Last Vital Signs Pulse 63 05/13/23 15:31 BP 122/78 05/13/23 15:31 Pulse Ox 98 05/13/23 15:31 Oxygen Delivery Method Room Air 05/13/23 15:31 BMI result Body Mass Index 30.5 Tobacco/Smoking Status: Tobacco use Status Tobacco use date assessed 05/13/23 05/13/23 15:33 Patient Tobacco Use Status Current someday Tobacco 05/13/23 15:33 Tobacco use type Cigarette 05/13/23 15:33 e-Cigarette/Vaping Use Never Used 05/13/23 15:33 Thrive Assessment: Date of Thrive Assessment Date Thrive assessed 10/09/22 05/13/23 15:33 Const General: no acute distress and well developed Nutritional Appearance: well nourished Orientation/consciousness: patient oriented x3 HENMT Head: Yes normocephalic and Yes atraumatic Eyes General: appearance normal, both eyes and all related structures Pupils: Equal, round and reactive pupils present EOM: EOMs intact bilaterally Resp Effort & Inspection: normal respiratory effort Auscultation: clear to auscultation bilaterally Cardio Rate: regular rate Rhythm: regular rhythm Heart sounds: S1 normal heart sound present, S2 normal heart sound present, no gallops, no murmurs and no rubs Neuro General: patient oriented x3 and gait normal Cranial nerves: Yes Equal, round and reactive pupils present Psych Affect: normal affect Assessment and Plan Assessment & Plan (1) Abdominal pain: Code(s): R10.9 - Unspecified abdominal pain Plan: This?has?resolved. Continue?to?hydrate?well If?symptoms?return,?consider?a?symptoms?diary (2) Pustular psoriasis: Code(s): L40.1 - Generalized pustular psoriasis Plan: Can?try?hydrocortisone?cream If?he?needs?a?stronger?cream?he?can?let?me?know Coding Level of Care Code Est Pt Level 3 (99153) Diagnoses Abdominal pain R10.9 Pustular psoriasis L40.1
== END 2023-05-13 16:49 | disposition home or self-care (01) ==
PROVIDERS: PCP Family Medicine; Visit Provider Family Medicine
DX: R10.9 Unspecified abdominal pain (principal); L40.1 Generalized pustular psoriasis
CPT/HCPCS: 99213

== ENCOUNTER 2023-08-25 14:35 | Outpatient (AMB) | payer MEDICARE, SELFPAY ==
--- NOTE | 2023-08-25 14:41 | MHC.PC.OV ---
Vital Signs 08/25/23 14:42 Height 5 ft 6 in Weight 191 lb BMI 30.8 BP 120/62 Blood Pressure Location Lt brachial Position Sitting Pulse 68 Pulse Source Pulse Oximeter Pulse Oximetry (%) 96 Oxygen Delivery Method Room Air Intake Visit Reasons: f/u anxiety and chronic conditions Intake Note: Patient is here to follow up on anxiety, and left hand numbness for 6 months. Patient has been unsteady on his feet for months. Allergies No Known Allergies Allergy (Verified 08/25/23 14:44) Medication List - Last Reconciled 08/25/23 by Luc Bergeron MD albuterol sulfate mg inhalation budesonide-formoterol 160-4.5 mcg/actuation (Symbicort) 2 puffs inhalation BID calcium polycarbophil (FiberCon) 625 mg PO BID 30 days cyclobenzaprine 10 mg PO TID PRN diclofenac sodium 1% 2 grams topical QID 30 days fluoxetine 20 mg PO DAILY 90 days gabapentin 300 mg PO BEDTIME ibuprofen 800 mg PO Q8H PRN methylcellulose (laxative) (Citrucel) 500 mg PO TID omeprazole 20 mg PO DAILY omeprazole 20 mg PO DAILY Oxygen Home Use As directed pantoprazole 40 mg PO DAILY 30 days quetiapine 50 mg (2 x 25 mg) PO DAILY 30 days tiotropium bromide 1.25 mcg/actuation (Spiriva Respimat) 2 puffs inhalation DAILY Tobacco use date assessed: 08/25/23 Fall risk assessment: No Falls in past year Last assessed Fall Risk: 08/25/23 Dental Screening Dental Screen Date: 08/25/23 Did you have a dental visit in the last 12 months?: Yes Did you have a dental problem in the last 6 months where you did not have access to dental care?: No Was dental information given to patient?: Patient declined HPI f/u anxiety and chronic conditions HPI Details 72 y/o male presents to f/u anxiety and chronic conditions. He is on quetiapine 50mg, fluoxetine 20mg. They report they feel stable on this regimen. Pt reports unsteadiness for several months. He reports this may be related to his hips which he has had an accident on. They deny any falls. They report it has been awhile since pt had done physical therapy. He also reports L hand numbness x6 months. They report a bulging disc on his C5. [facility] Medical History OCD (obsessive compulsive disorder) Sleep apnea Shoulder arthritis Hearing loss Esophagitis Hernia, hiatal COPD (chronic obstructive pulmonary disease) Surgical History History of placement of ear tubes Hx of cholecystectomy Family History Father Advanced dementia Mother Stroke Heart problem Social History Housing: Apartment Alcohol intake: former Year quit: 2019 Patient Tobacco Use Status: Current someday Tobacco user Tobacco use type: Cigarette Cigarettes Per Day: 6 Years Smoked: 50 e-Cigarette/Vaping Use: Never Used service: No Current occupational status: retired and disabled Current occupational exposures/hazards: No Cognitive needs: No Hearing needs: No Vision needs: No Questionnaire PHQ-9 Over the last 2 weeks, how often have you been bothered by any of the following problems? 1. Little interest or pleasure in doing things: not at all 2. Feeling down, depressed, or hopeless: not at all 3. Trouble falling or staying asleep, or sleeping too much: not at all 4. Feeling tired or having little energy: not at all 5. Poor appetite or overeating: not at all 6. Feeling bad about yourself - or that you are a failure or have let yourself or your family down: not at all 7. Trouble concentrating on things, such as reading the newspaper or watching television: not at all 8. Moving or speaking so slowly that other people could have noticed. Or the opposite - being so fidgety or restless that you have been moving around a lot more than usual: not at all 9. Thoughts that you would be better off or of hurting yourself in some way: not at all Total score: 0 Source: Developed by Drs. Lui Mckeon, Mitra Lux, Efrem Chacko and colleagues, with an educational mae from [employer]. Thrive Questionnaire Date Thrive assessed: 08/25/23 I am a: Patient What is your living situation today?: I have a steady place to live Within the past 12 months, did the food you bought not last and you didn't have the money to get more?: Never true Within the past 12 months, did you worry whether your food would run out before you got money to buy more?: Never true Do you have trouble paying for medicines?: No Do you have trouble getting transportation to medical appointments?: No Do you have trouble paying your heating and electricity bill?: No Do you have trouble taking care of your child, family member or friend?: No Do you have trouble with day-to-day activities such as bathing, preparing meals, shopping, managing finances, etc.?: No Are you currently unemployed and looking for a job?: No Are you interested in more education?: No THRIVE Score: 0 AUDIT C Alcohol Use Questionnaire (AUDIT-C) 1. How often do you have a drink containing alcohol?: Never 3. How often do you have six or more drinks on one occasion?: Never Total Score: 0 ANETTE-7 AMB Questionnaire ANETTE-7 Date ANETTE - 7 assessed: 08/25/23 Feeling nervous, anxious, or on edge: 0 = Not at all Not being able to stop or control worryin = Not at all Worrying too much about different things: 0 = Not at all Trouble relaxin = Not at all Being so restless that it is hard to sit still: 0 = Not at all Becoming easily annoyed or irritable: 0 = Not at all Feeling afraid as if something awful might happen: 0 = Not at all Total ANETTE-7 score (0-4 normal; 5-9 mild; 10-14 moderate; 15-21 severe): 0 Source: Developed by Drs. Lui Mckeon, Mitra Lux, Efrem Chacko and colleagues, with an educational mae from [employer]. Physical exam (Primary Care) Vital Signs: Last Vital Signs Pulse 68 08/25/23 14:42 BP 120/62 08/25/23 14:42 Pulse Ox 96 08/25/23 14:42 Oxygen Delivery Method Room Air 08/25/23 14:42 BMI result Body Mass Index 30.8 Tobacco/Smoking Status: Tobacco use Status Tobacco use date assessed 08/25/23 08/25/23 14:54 Patient Tobacco Use Status Current someday Tobacco 08/25/23 14:42 Tobacco use type Cigarette 08/25/23 14:42 e-Cigarette/Vaping Use Never Used 08/25/23 14:42 PHQ-9: PHQ-9 Score PHQ-9: Total score 0 08/25/23 14:54 Thrive Assessment: Date of Thrive Assessment Date Thrive assessed 08/25/23 08/25/23 14:54 Assessment and Plan Assessment & Plan (1) Anxiety: Code(s): F41.9 - Anxiety disorder, unspecified Plan: Taking?fluoxetine?and?quetiapine?as?prescribed. Stable?on?current?medications?and?he?can?continue?these (2) Unsteady gait: Code(s): R26.81 - Unsteadiness on feet Plan: Mechanical weakness?of?left?hip?and?thigh?secondary?to?old?injury. 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 Left?hand?and?forearm?numbness?without?weakness. Referred?to?neurology (4) Left shoulder pain: Code(s): M25.512 - Pain in left shoulder Plan: Likely?secondary?to?tendinitis. He?can?use?heat?and?cold Orders: Orders PT Evaluation and Treatment Today R26.81 - Unsteadiness on feet, R29.898 - Other symptoms and signs involving the musculoskeletal system Referrals Neurology Referral R20.0 - Anesthesia of skin Coding Level of Care Code Est Pt Level 4 (85594) Diagnoses Anxiety F41.9 Unsteady gait R26.81 Numbness of left hand R20.0 Left shoulder pain M25.512
[2023-08-25 14:42] VITALS: BP 120/62; PULSE 68; O2SAT 96; BMI 30.8
== END 2023-08-25 15:13 | disposition home or self-care (01) ==
PROVIDERS: PCP Family Medicine; Visit Provider Family Medicine
DX: F41.9 Anxiety disorder, unspecified (principal); R26.81 Unsteadiness on feet; R20.0 Anesthesia of skin; M25.512 Pain in left shoulder
CPT/HCPCS: 99214

== ENCOUNTER 2023-09-11 15:34 | Outpatient (AMB) | payer MEDICARE, SELFPAY ==
[2023-09-11 15:35] VITALS: BP 120/72; PULSE 90; O2SAT 94; BMI 31.0
--- NOTE | 2023-09-11 15:35 | A.OFFPC_ITS ---
Vital Signs 09/11/23 15:35 Height 5 ft 6 in Weight 192 lb 6 oz BMI 31.0 BP 120/72 Blood Pressure Location Lt brachial Position Sitting Pulse 90 Pulse Source Pulse Oximeter Pulse Oximetry (%) 94 Oxygen Delivery Method Room Air Intake Visit Reasons: ? thrush Intake Note: Pt presents to the office today for c/o thrush. Pt states he noticed his tongue started becoming painful a few days ago that has been constant without any known trauma to his tongue. Pt states it is difficult to drink hot fluids and to eat.Pt denies any other symptoms at this time. Allergies No Known Allergies Allergy (Verified 09/11/23 15:37) Tobacco use date assessed: 09/11/23 HPI ? thrush HPI Details 73 y/o male presents with ? thrush. Pt states he takes symbicort. He denies any throat pain. [facility] Medical History OCD (obsessive compulsive disorder) Sleep apnea Shoulder arthritis Hearing loss Esophagitis Hernia, hiatal COPD (chronic obstructive pulmonary disease) Surgical History History of placement of ear tubes Hx of cholecystectomy Family History Father Advanced dementia Mother Stroke Heart problem Social History Housing: Apartment Alcohol intake: former Year quit: 2019 Patient Tobacco Use Status: Current someday Tobacco user Tobacco use type: Cigarette Cigarettes Per Day: 6 Years Smoked: 50 e-Cigarette/Vaping Use: Never Used service: No Current occupational status: retired and disabled Current occupational exposures/hazards: No Cognitive needs: No Hearing needs: No Vision needs: No Questionnaire Thrive Questionnaire Date Thrive assessed: 08/25/23 ANETTE-7 AMB Questionnaire ANETTE-7 Date ANETTE - 7 assessed: 08/25/23 Source: Developed by Drs. Lui Mckeon, Mitra Lux, Efrem Chacko and colleagues, with an educational mae from [employer]. Review of Systems Const Denies chills, Denies fatigue, Denies fever(s), Denies headache(s) and Denies weakness ENT Denies dizziness and Denies headache(s) Card Denies dyspnea Resp Denies cough, Denies dyspnea, Denies wheezing and Denies other (shortness of breath) Musc Denies numbness and Denies tingling Neuro Denies dizziness, Denies headache(s), Denies numbness, Denies tingling and Denies weakness Psych Denies anxiety and Denies depression Endo Denies fatigue Aller/Immun Denies wheezing Physical exam (Primary Care) Vital Signs: Last Vital Signs Pulse 90 09/11/23 15:35 BP 120/72 09/11/23 15:35 Pulse Ox 94 09/11/23 15:35 Oxygen Delivery Method Room Air 09/11/23 15:35 BMI result Body Mass Index 31.0 Tobacco/Smoking Status: Tobacco use Status Tobacco use date assessed 09/11/23 09/11/23 15:40 Patient Tobacco Use Status Current someday Tobacco 09/11/23 15:40 Tobacco use type Cigarette 09/11/23 15:40 e-Cigarette/Vaping Use Never Used 09/11/23 15:40 Thrive Assessment: Date of Thrive Assessment Date Thrive assessed 08/25/23 09/11/23 15:40 Const General: well developed; No acute distress Nutritional Appearance: well nourished Orientation/consciousness: patient oriented x3 HENMT Head: Yes normocephalic and Yes atraumatic Eyes General: appearance normal, both eyes and all related structures Pupils: Equal, round and reactive pupils present EOM: EOMs intact bilaterally Resp Effort & Inspection: normal respiratory effort Neuro General: patient oriented x3 and gait normal Cranial nerves: Yes Equal, round and reactive pupils present Psych Affect: normal affect Assessment and Plan Assessment & Plan (1) Thrush: Code(s): B37.0 - Candidal stomatitis Plan: Glossy?erythematous?tongue?with?plaque-like film - scrapes?off?easily. Consistent?with?thrush?and?patient?takes?Symbicort No?throat?pain He?can?use?nystatin?swish?and?spit Call?or?return?to?office?if?not?improving Medications: New nystatin swish and swallow 5 mL PO DAILY 50 mL 1RF 10 days Coding Level of Care Code Est Pt Level 3 (17622) Diagnoses Thrush B37.0
== END 2023-09-11 16:07 | disposition home or self-care (01) ==
PROVIDERS: PCP Family Medicine; Visit Provider Family Medicine
DX: B37.0 Candidal stomatitis (principal)
CPT/HCPCS: 99213

== ENCOUNTER 2023-11-11 17:02 | Outpatient (AMB) | payer MEDICARE, SELFPAY ==
[2023-11-11 17:04] VITALS: BP 122/70; PULSE 76; O2SAT 97; BMI 30.5
--- NOTE | 2023-11-11 17:04 | MHC.PC.OV ---
Vital Signs 11/11/23 17:04 Height 5 ft 6 in Weight 189 lb BMI 30.5 BP 122/70 Blood Pressure Location Lt brachial Position Sitting Pulse 76 Pulse Source Pulse Oximeter Pulse Oximetry (%) 97 Oxygen Delivery Method Room Air Intake Visit Reasons: ? thrush Intake Note: Patient is here to follow up on thrush, is requesting meds for it. Allergies No Known Allergies Allergy (Verified 11/11/23 17:26) Medication List - Last Reconciled 11/11/23 by Margaret Harris CNP albuterol sulfate mg inhalation budesonide-formoterol 160-4.5 mcg/actuation (Symbicort) 2 puffs inhalation BID calcium polycarbophil (FiberCon) 625 mg PO BID 30 days cyclobenzaprine 10 mg PO TID PRN diclofenac sodium 1% 2 grams topical QID 30 days fluoxetine 20 mg PO DAILY 90 days gabapentin 300 mg PO BEDTIME ibuprofen 800 mg PO Q8H PRN methylcellulose (laxative) (Citrucel) 500 mg PO TID nystatin 5 mL PO DAILY 10 days omeprazole 20 mg PO DAILY omeprazole 20 mg PO DAILY Oxygen Home Use As directed pantoprazole 40 mg PO DAILY 30 days quetiapine 50 mg (2 x 25 mg) PO DAILY 30 days tiotropium bromide 1.25 mcg/actuation (Spiriva Respimat) 2 puffs inhalation DAILY Tobacco use date assessed: 11/11/23 Dental Screening Dental Screen Date: 11/11/23 Did you have a dental visit in the last 12 months?: Yes Did you have a dental problem in the last 6 months where you did not have access to dental care?: No Was dental information given to patient?: Patient declined HPI HPI Comments History of Present Illness Details 73-year-old male presents with complaints of oral thrush. He reports painful sensation to the tip of his tongue. He denies any associated symptoms. He notes that his COPD is well controlled since he quit smoking and has not taken Symbicort for the past 2 months. He was diagnosed and treated for thrush by his PCP in mid August. He was also recently prescribed nystatin p.o. for thrush. He notes that his symptoms completely resolved and recur. [facility] Medical History OCD (obsessive compulsive disorder) Sleep apnea Shoulder arthritis Hearing loss Esophagitis Hernia, hiatal COPD (chronic obstructive pulmonary disease) Surgical History History of placement of ear tubes Hx of cholecystectomy Family History Father Advanced dementia Mother Stroke Heart problem Social History Housing: Apartment Alcohol intake: former Year quit: 2019 Patient Tobacco Use Status: Former Tobacco user Tobacco use type: Cigarette Cigarettes Per Day: 6 Years Smoked: 50 Packs per year/per ci.00 e-Cigarette/Vaping Use: Never Used service: No Current occupational status: retired and disabled Current occupational exposures/hazards: No Cognitive needs: No Hearing needs: No Vision needs: No Questionnaire Thrive Questionnaire Date Thrive assessed: 08/25/23 ANETTE-7 AMB Questionnaire ANETTE-7 Date ANETTE - 7 assessed: 08/25/23 Source: Developed by Drs. Lui Mckeon, Mitra Lux, Efrem Chacko and colleagues, with an educational mae from [employer]. Review of Systems Const Details: Const Denies chills, Denies fatigue, Denies fever(s), Denies headache(s) and Denies weakness ENT Reports as per HPI Card Denies chest pain, Denies lightheadedness, Denies dyspnea and Denies other (Palpitations) Resp Denies cough, Denies dyspnea, Denies wheezing and Denies other ( shortness of breath) GI Denies abdominal pain, Denies melena, Denies hematochezia, Denies change in bowel habits, Denies dyspepsia and Denies nausea Denies hematuria and Denies dysuria Musc Denies abnormal gait, Denies myalgias, Denies arthralgias, Denies numbness and Denies tingling Skin/Breast Denies rash, Denies unusual bruising and Denies wounds Neuro Denies abnormal gait, Denies dizziness, Denies headache(s), Denies memory loss, Denies numbness, Denies Sensory deficit (Neuro), Denies tingling and Denies weakness Psych Denies anxiety, Denies depression, Denies memory loss Endo Denies cold intolerance, Denies fatigue, Denies heat intolerance, Denies polydipsia and Denies polyuria Aller/Immun Denies wheezing Physical exam (Primary Care) Vital Signs: Last Vital Signs Pulse 76 11/11/23 17:04 BP 122/70 11/11/23 17:04 Pulse Ox 97 11/11/23 17:04 Oxygen Delivery Method Room Air 11/11/23 17:04 BMI result Body Mass Index 30.5 Tobacco/Smoking Status: Tobacco use Status Tobacco use date assessed 11/11/23 11/11/23 17:11 Patient Tobacco Use Status Former Tobacco user 11/11/23 17:11 Tobacco use type Cigarette 11/11/23 17:11 e-Cigarette/Vaping Use Never Used 11/11/23 17:11 Thrive Assessment: Date of Thrive Assessment Date Thrive assessed 08/25/23 11/11/23 17:11 Const Other: General: no acute distress and well developed Nutritional Appearance: well nourished Orientation/consciousness: patient oriented x3 HENMT Head is normocephalic Bilateral ear canal and TM are normal Nasal turbinates and oropharynx are pink and moist. Glossy erythema with plaque-like film (scrape off easily) to the tip of his tongue, consistent with thrush Sinuses are nontender with palpation No auricular or cervical lymphadenopathy Eyes General: appearance normal, both eyes and all related structures Pupils: Equal, round and reactive pupils present EOM: EOMs intact bilaterally Resp Effort & Inspection: normal respiratory effort Auscultation: clear to auscultation bilaterally Cardio Rate: regular rate Rhythm: regular rhythm Heart sounds: S1 normal heart sound present, S2 normal heart sound present, no gallops, no murmurs and no rubs GI Palpation (GI): No Abdominal aortic bruit present, Soft to palpation, nontender, No hepatosplenomegaly present and No Rebound tenderness present Auscultation: normal bowel sounds General: Yes no CVA tenderness Back/Spine/Pelvis Back: no CVA tenderness Cervical Spine: cervical ROM normal and No Cervical spine tenderness Thoracic/Lumbar Spine: thoraco-lumbar ROM normal, No pain with thoraco-lumbar ROM, No thoracic spinal tenderness and No lumbar spinal tenderness Extrem General: Yes normal to inspection, No edema and No calf tenderness Skin General: warm and dry. Normal skin color. Normal skin turgor Neuro General: patient oriented x3, gait normal and no focal neuro deficit Cranial nerves: Yes Equal, round and reactive pupils present Cognition (Neuro): normal cognition Gait exam (Neuro): Normal gait present Sensory Exam: No Sensory deficit (Neuro) Psych Appearance: grossly normal Affect: normal affect Attitude: cooperative Thought process: Normal thought process present Assessment and Plan Assessment & Plan (1) Thrush: Code(s): B37.0 - Candidal stomatitis Plan: Thrush to tip of tongue x2 weeks Glossy erythema with plaque-like film (scrape off easily) to the tip of his tongue, consistent with thrush Nystatin 5 mL p.o. daily recent to the pharmacy. Encouraged to use as prescribed Advised to rinse mouth thoroughly with water after using Symbicort Follow-up with worsening or new signs and symptoms Verbalized understanding and agreed with treatment plan Medications: Refilled nystatin swish and swallow 5 mL PO DAILY 10 days 50 mL 1RF Coding Level of Care Code Est Pt Level 3 (51744) Diagnoses Thrush B37.0
== END 2023-11-11 17:45 | disposition home or self-care (01) ==
PROVIDERS: PCP Family Medicine; Visit Provider Nurse Practitioner Family
DX: B37.0 Candidal stomatitis (principal)
CPT/HCPCS: 99213

== ENCOUNTER 2023-12-11 13:52 | Outpatient (AMB) | payer MEDICARE, SELFPAY ==
--- NOTE | 2023-12-11 14:05 | MHC.PC.OV ---
Vital Signs 12/11/23 14:12 Height 5 ft 6 in Weight 193 lb 4 oz BMI 31.2 BP 110/56 L Blood Pressure Location Lt brachial Position Sitting Respiration 18 Pulse 70 Pulse Source Pulse Oximeter Temp 98.1 F Temp Source Oral Pulse Oximetry (%) 94 Oxygen Delivery Method Room Air Intake Visit Reasons: Tongue pain Intake Note: Tongue pain Procedures Rn Required: No Allergies No Known Allergies Allergy (Verified 11/11/23 17:26) Medication List - Last Reconciled 12/11/23 by Monse Bergman PA-C albuterol sulfate mg inhalation budesonide-formoterol 160-4.5 mcg/actuation (Symbicort) 2 puffs inhalation BID Oxygen Home Use As directed quetiapine 50 mg (2 x 25 mg) PO DAILY 30 days tiotropium bromide 1.25 mcg/actuation (Spiriva Respimat) 2 puffs inhalation DAILY Tobacco use date assessed: 11/11/23 Fall risk assessment: No Falls in past year Last assessed Fall Risk: 12/11/23 Dental Screening Dental Screen Date: 11/11/23 HPI Tongue pain HPI Details Patient is a 73-year-old male with a significant past medical history of dysphagia, esophageal stricture, Morton's esophagus and COPD presenting today with complaints of tongue pain. He states his symptoms started a couple days ago and he knows that it is thrush. About a month or so ago he was diagnosed with thrush and he was treated with the nystatin swish and swallow. He states that it worked but it came back and he thinks it is because he has been forgetting to rinse his mouth out after using his inhalers. He states that he did not realize that he would have to do this. He denies any sore throat, fever, chills, sinus pain or pressure. Currently COPD is stable and well-controlled. He has an upcoming appointment with his PCP on 12/18. Right a patient that he does have labs in the system ordered for him. He also has been referred to ENT but does not know when this appointment is scheduled for. Continues to smoke. [facility] Medical History OCD (obsessive compulsive disorder) Sleep apnea Shoulder arthritis Hearing loss Esophagitis Hernia, hiatal COPD (chronic obstructive pulmonary disease) Surgical History History of placement of ear tubes Hx of cholecystectomy Family History Father Advanced dementia Mother Stroke Heart problem Social History Housing: Apartment Alcohol intake: former Year quit: 2019 Patient Tobacco Use Status: Former Tobacco user Tobacco use type: Cigarette Cigarettes Per Day: 6 Years Smoked: 50 e-Cigarette/Vaping Use: Never Used service: No Current occupational status: retired and disabled Current occupational exposures/hazards: No Cognitive needs: No Hearing needs: No Vision needs: No Questionnaire Thrive Questionnaire Date Thrive assessed: 08/25/23 ANETTE-7 AMB Questionnaire ANETTE-7 Date ANETTE - 7 assessed: 08/25/23 Source: Developed by Drs. Lui Mckeon, Mitra Lux, Efrem Chacko and colleagues, with an educational mae from [employer]. Physical exam (Primary Care) Vital Signs: Last Vital Signs Temp 98.1 F 12/11/23 14:12 Pulse 70 12/11/23 14:12 Resp 18 12/11/23 14:12 BP 110/56 L 12/11/23 14:12 Pulse Ox 94 12/11/23 14:12 Oxygen Delivery Method Room Air 12/11/23 14:12 BMI result Body Mass Index 31.2 Tobacco/Smoking Status: Tobacco use Status Tobacco use date assessed 11/11/23 12/11/23 14:06 Patient Tobacco Use Status Former Tobacco user 12/11/23 14:06 Tobacco use type Cigarette 12/11/23 14:06 e-Cigarette/Vaping Use Never Used 12/11/23 14:06 Thrive Assessment: Date of Thrive Assessment Date Thrive assessed 08/25/23 12/11/23 14:06 Const Orientation/consciousness: patient oriented x3 HENMT Ears: hearing grossly normal bilaterally and TM's normal bilaterally Face and sinus: Yes sinuses nontender Mouth: tongue abnormal (White patches that that do scrape off noted on the dorsum of the tongue) Throat: Yes posterior oropharynx normal and Yes uvula midline Neck Thyroid: Thyroid normal Lymphatic: no lymphadenopathy noted Resp Effort & Inspection: normal respiratory effort and able to speak in complete sentences Auscultation: wheezes (Scattered wheezes at the bilateral bases otherwise, clear. ) Cardio Rate: regular rate Rhythm: regular rhythm Heart sounds: S1 normal heart sound present and S2 normal heart sound present GI Inspection: Yes normal to inspection Palpation (GI): Soft to palpation and Other GI palpation findings present (nontender, no cva tenderness) Auscultation: normoactive bowel sounds Rectal Exam - Male: Yes deferred Skin General skin exam: no rashes or lesions noted Neuro General: patient oriented x3, gait normal and no focal motor deficits Assessment and Plan Assessment & Plan (1) Thrush: Code(s): B37.0 - Candidal stomatitis Plan: Nystatin swish and swallow ordered. Discussed the importance of oral hygiene. (2) COPD (chronic obstructive pulmonary disease): Code(s): J44.9 - Chronic obstructive pulmonary disease, unspecified Qualifiers: COPD type: unspecified COPD Qualified Code(s): J44.9 - Chronic obstructive pulmonary disease, unspecified Plan: Currently stable. Encouraged smoking cessation. Patient does not want to quit. Reminded him to rinse his mouth out with use of inhalers. Patient understands and agrees with the plan. Medications: Changed From nystatin swish and swallow 5 mL PO DAILY 10 days 50 mL 1RF To nystatin swish and swallow 5 mL PO QID 10 days 200 mL 0RF Coding Level of Care Code Est Pt Level 4 (28283) Diagnoses Thrush B37.0 Chronic obstructive pulmonary disease, unspecified COPD type J44.9 COPD type: unspecified COPD
[2023-12-11 14:12] VITALS: BP 110/56; PULSE 70; RESP 18; TEMP 36.7; O2SAT 94; BMI 31.2
== END 2023-12-11 14:48 | disposition home or self-care (01) ==
PROVIDERS: PCP Family Medicine; Visit Provider Physician Assistant
DX: B37.0 Candidal stomatitis (principal); J44.9 Chronic obstructive pulmonary disease, unspecified
CPT/HCPCS: 99214

== ENCOUNTER 2023-12-15 13:06 | Outpatient (AMB) | payer MEDICARE, SELFPAY ==
--- NOTE | 2023-12-15 13:15 | MHC.OFFVIS ---
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 He reports tingling in his left hand intermittently . He denies shooting pains or weakness. He has intermittent neck discomfort . No bladder issues or bowel issues. He reports some balance issues for many years now. He has h/o COPD sleep apnea- is on overnight oxygen sleeps well. [facility] Medical History OCD (obsessive compulsive disorder) Sleep apnea Shoulder arthritis Hearing loss Esophagitis Hernia, hiatal COPD (chronic obstructive pulmonary disease) Surgical History History of placement of ear tubes Hx of cholecystectomy Family History Father Advanced dementia Mother Stroke Heart problem Social History Housing: Apartment Alcohol intake: former Year quit: 2019 Patient Tobacco Use Status: Former Tobacco user Tobacco use type: Cigarette Cigarettes Per Day: 6 Years Smoked: 50 e-Cigarette/Vaping Use: Never Used service: No Current occupational status: retired and disabled Current occupational exposures/hazards: No Cognitive needs: No Hearing needs: No Vision needs: No Physical Exam Vital Signs: Last Vital Signs Pulse 72 12/15/23 13:17 Resp 17 12/15/23 13:17 BP 132/70 12/15/23 13:17 Pulse Ox 96 12/15/23 13:17 Oxygen Delivery Method Room Air 12/15/23 13:17 BMI result Body Mass Index 31.1 Const General: cooperative, healthy appearing, comfortable and no acute distress Nutritional Appearance: average body habitus Orientation/consciousness: patient oriented x3 Eyes Pupils: Equal, round and reactive pupils present Neck Neck: Yes no meningeal signs Neuro General: patient oriented x3, gait normal, tone normal, moves all extremities, no meningeal signs and no focal motor deficits Cranial nerves: Yes Equal, round and reactive pupils present, Yes Bilaterally intact EOM present, Yes Nystagmus not present, Yes Normal facial strength present, Yes Midline tongue present and Yes Symmetric palate elevation present Cognition (Neuro): normal cognition Gait exam (Neuro): Antalgic gait present Motor exam (neuro): 5/5 motor strength present throughout and Normal motor muscle tone present throughout Deep tendon reflexes (DTR's): Right triceps reflex intensity grade: 2+, Left triceps reflex intensity grade: 3+, Rt Biceps (C5, C6): 2+, Left biceps reflex intensity grade: 3+, Right brachioradialis reflex intensity grade: 2+, Left brachioradialis reflex intensity grade: 3+, Right patellar reflex intensity grade: 3+ and Left patellar reflex intensity grade: 3+ Coordination: [id number] test normal Assessment & Plan Assessment & Plan (1) Numbness of left hand: Code(s): R20.0 - Anesthesia of skin Category: Medical (2) Neck pain: Code(s): M54.2 - Cervicalgia Category: Medical (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 will consider PT Orders: Orders MR cervical spine wo con Today M47.812 - Spondylosis without myelopathy or radiculopathy, cervical region, M54.2 - Cervicalgia, R20.0 - Anesthesia of skin NE electromyogram (EMG) Today M54.2 - Cervicalgia, R20.0 - Anesthesia of skin NE nerve conduction velocity Today M47.812 - Spondylosis without myelopathy or radiculopathy, cervical region, M54.2 - Cervicalgia, R20.0 - Anesthesia of skin Coding Level of Care Code New Pt Level 4 (05839) Diagnoses Numbness of left hand R20.0 Neck pain M54.2 Cervical spondylarthritis M47.812
[2023-12-15 13:17] VITALS: BP 132/70; PULSE 72; RESP 17; O2SAT 96; BMI 31.1
== END 2023-12-15 13:59 | disposition home or self-care (01) ==
PROVIDERS: PCP Family Medicine; Visit Provider Psychiatry & Neurology Neurology
DX: R20.0 Anesthesia of skin (principal); M54.2 Cervicalgia; M47.812 Spondylosis without myelopathy or radiculopathy, cervical region
CPT/HCPCS: 99204

== ENCOUNTER → 2023-12-15 13:06 | Outpatient (BNVA) | payer MEDICARE, SELFPAY | PROVIDERS: PCP Family Medicine; Visit Provider Psychiatry & Neurology Neurology | DX: R20.0 Anesthesia of skin (principal); M54.2 Cervicalgia; M47.22 Other spondylosis with radiculopathy, cervical region | CPT/HCPCS: 99202 ==

== ENCOUNTER 2023-12-17 11:03 | Outpatient (REF) | payer MEDICARE, SELFPAY ==
[2023-12-17 14:41] LABS: MANUAL DIFF FLAG NO
[2023-12-17 15:10] LABS: Basophils Absolute Auto 0.2 X10*3/uL (0.0-0.2); Basophils Percent Auto 1.3 % (0-2); Eosinophils Absolute Auto 0.5 X10*3/uL (0.0-0.4); Eosinophils Percent Auto 4.1 % (0-4); Hematocrit 45.7 % (42.0-52.0); Hemoglobin 15.6 g/dl (14.0-18.0); Imm Gran Abs Auto 0.06 X10*3/uL (0.00-0.03); Imm Gran Pct Auto 0.5 % (0.0-0.4); Lymphocytes Absolute Auto 2.6 X10*3/uL (1.2-4.9); Lymphocytes Percent Auto 22.3 % (20-40); Mean Corpuscular HGB Conc 34.1 g/dl (31.0-36.0); Mean Corpuscular Hemoglobin 32.3 pg (27.0-33.0); Mean Corpuscular Volume 94.6 fL (80.0-98.0); Mean Platelet Volume 10.6 fL (9.4-12.4); Monocytes Absolute Auto 1.1 X10*3/uL (0.1-1.2); Monocytes Percent Auto 9.3 % (2-11); Neutrophils Absolute Auto 7.2 x10*3/uL (2.0-8.3); Neutrophils Percent Auto 62.5 % (45-73); Platelet Count 365 X10*3/uL (160-400); Red Blood Count 4.83 X10*6/uL (4.60-5.80); Red Cell Distribution Width 14.2 % (11.0-16.0); White Blood Count 11.6 X10*3/uL (4.8-10.8)
[2023-12-17 17:47] LABS: Alanine Aminotransferase 25 U/L (0-40); Albumin Level 3.6 g/dL (3.5-5.0); Alkaline Phosphatase 77 U/L (39-117); Anion Gap 13 (12-20); Aspartate Amino Transferase 21 U/L (5-37); Bilirubin Total 0.4 mg/dL (0.0-1.0); Blood Urea Nitrogen 6 mg/dL (9-16); Calcium 8.8 mg/dL (8.4-10.2); Carbon Dioxide 25 mmol/L (22-29); Chloride 103 mmol/L (96-108); Cholesterol 151 mg/dL (<200); Estimated Glomerular Filt Rate > 60; Glucose Fasting 91 mg/dL (60-99); HDL Cholesterol 38 mg/dL (>40); LDL Cholesterol Calculated 93 mg/dL (<100); Potassium 3.8 mmol/L (3.3-5.1); Prostate Specific Antigen Scr 0.93 ng/mL (<0.05-4.0); Sodium 137 mmol/L (135-145); TSH reflex Free T4 0.89 uIU/mL (0.32-4.0); Total Protein 6.5 g/dL (6.5-8.0); Triglycerides 101 mg/dL (<150)
== END 2023-12-17 11:04 | disposition home or self-care (01) ==
LOC: HO.WFDLDS 11:03
PROVIDERS: Visit Provider Family Medicine
DX: Z00.00 Encounter for general adult medical examination without abnormal findings (principal); Z12.5 Encounter for screening for malignant neoplasm of prostate
CPT/HCPCS: 36415; 80053; 80061; 84153; 84443; 85025

== ENCOUNTER 2023-12-19 14:02 | Outpatient (AMB) | payer MEDICARE, SELFPAY ==
[2023-12-19 14:08] VITALS: BP 120/60; PULSE 80; O2SAT 94; BMI 31.2
--- NOTE | 2023-12-19 14:08 | MHC.PC.OV ---
Vital Signs 12/19/23 14:08 Height 5 ft 6 in Weight 193 lb 8 oz BMI 31.2 BP 120/60 Blood Pressure Location Lt brachial Position Sitting Pulse 80 Pulse Source Pulse Oximeter Pulse Oximetry (%) 94 Oxygen Delivery Method Room Air Intake Visit Reasons: f/u chronic conditions Intake Note: Patient is here to follow up on chronic conditions Allergies No Known Allergies Allergy (Verified 12/15/23 13:16) Tobacco use date assessed: 11/11/23 Dental Screening Dental Screen Date: 11/11/23 HPI f/u chronic conditions HPI Details 73 y/o male presents to f/u chronic conditions and labs. Labs were drawn 12/17/23. Reviewed labs with pt. Triglycerides 101. TC 151. LDL 93. HDL low at 38. Pt reports he continues to smoke but minimally. Pt notes breathing has improved. [facility] Medical History (Updated 12/15/23 @ 13:55 by Carmen Sol MD) Cervical spondylarthritis Neck pain OCD (obsessive compulsive disorder) Sleep apnea Shoulder arthritis Hearing loss Esophagitis Hernia, hiatal COPD (chronic obstructive pulmonary disease) Surgical History History of placement of ear tubes Hx of cholecystectomy Family History Father Advanced dementia Mother Stroke Heart problem Social History Housing: Apartment Alcohol intake: former Year quit: 2019 Patient Tobacco Use Status: Former Tobacco user Tobacco use type: Cigarette Cigarettes Per Day: 6 Years Smoked: 50 e-Cigarette/Vaping Use: Never Used service: No Current occupational status: retired and disabled Current occupational exposures/hazards: No Cognitive needs: No Hearing needs: No Vision needs: No Questionnaire Thrive Questionnaire Date Thrive assessed: 08/25/23 ANETTE-7 AMB Questionnaire ANETTE-7 Date ANETTE - 7 assessed: 08/25/23 Source: Developed by Drs. Lui Mckeon, Mitra Lux, Efrem Chacko and colleagues, with an educational mae from [employer]. Review of Systems Const Denies chills, Denies fatigue, Denies fever(s), Denies headache(s) and Denies weakness ENT Denies dizziness and Denies headache(s) Card Denies chest pain, Denies lightheadedness, Denies dyspnea and Denies other (Palpitations) Resp Denies cough, Denies dyspnea, Denies wheezing and Denies other ( shortness of breath) Musc Denies numbness and Denies tingling Neuro Denies dizziness, Denies headache(s), Denies numbness, Denies tingling, Denies paresthesias and Denies weakness Psych Denies anxiety and Denies depression Endo Denies fatigue Aller/Immun Denies wheezing Physical exam (Primary Care) Vital Signs: Last Vital Signs Pulse 80 12/19/23 14:08 BP 120/60 12/19/23 14:08 Pulse Ox 94 12/19/23 14:08 Oxygen Delivery Method Room Air 12/19/23 14:08 BMI result Body Mass Index 31.2 Tobacco/Smoking Status: Tobacco use Status Tobacco use date assessed 11/11/23 12/19/23 14:13 Patient Tobacco Use Status Former Tobacco user 12/19/23 14:13 Tobacco use type Cigarette 12/19/23 14:13 e-Cigarette/Vaping Use Never Used 12/19/23 14:13 Thrive Assessment: Date of Thrive Assessment Date Thrive assessed 08/25/23 12/19/23 14:13 Const General: no acute distress and well developed Nutritional Appearance: well nourished Orientation/consciousness: patient oriented x3 [facility] Head: Yes normocephalic and Yes atraumatic Eyes General: appearance normal, both eyes and all related structures Pupils: Equal, round and reactive pupils present EOM: EOMs intact bilaterally Resp Other: Distant but clear Effort & Inspection: normal respiratory effort Auscultation: clear to auscultation bilaterally Cardio Rate: regular rate Rhythm: regular rhythm Heart sounds: S1 normal heart sound present, S2 normal heart sound present, no gallops, no murmurs and no rubs Neuro General: patient oriented x3 and gait normal Cranial nerves: Yes Equal, round and reactive pupils present Psych Affect: normal affect Assessment and Plan Assessment & Plan (1) COPD (chronic obstructive pulmonary disease): Code(s): J44.9 - Chronic obstructive pulmonary disease, unspecified Qualifiers: COPD type: unspecified COPD Qualified Code(s): J44.9 - Chronic obstructive pulmonary disease, unspecified Plan: Distant?but?clear?breath?sounds?today.??Patient?is?breathing?easily Taking?his?inhaled?medications?as?prescribed Strongly?encouraged?smoking?cessation?and?he?says?he?is?working?on?this. Will?give?him?some?bupropion?to?try?to?help?him?quit?the?last?1?or?2?cigarettes?per?day. (2) Smoker: Code(s): F17.200 - Nicotine dependence, unspecified, uncomplicated Plan: As?above,?trial?bupropion Encouraged?smoking?cessation (3) Thrush: Code(s): B37.0 - Candidal stomatitis Plan: Patient?has?had?recurrent?bouts?of?thrush. He?says?that?when?he?takes?the?nystatin?his?symptoms?go?away Currently?no?evidence?of?thrush?and?no?discomfort?except?a?small?excoriation?where?he?bit?his?tongue. Encouraged?good?hydration,?smoking?cessation?and?rinse?well?after?using?inhaled?steroids. Medications: New bupropion HCl 75 mg PO DAILY 30 days 30 tabs 3RF Coding Level of Care Code Est Pt Level 4 (78250) Diagnoses Chronic obstructive pulmonary disease, unspecified COPD type J44.9 COPD type: unspecified COPD Smoker F17.200 Thrush B37.0
== END 2023-12-19 14:51 | disposition home or self-care (01) ==
PROVIDERS: PCP Family Medicine; Visit Provider Family Medicine
DX: J44.9 Chronic obstructive pulmonary disease, unspecified (principal); F17.210 Nicotine dependence, cigarettes, uncomplicated; B37.0 Candidal stomatitis
CPT/HCPCS: 99214

== ENCOUNTER 2023-12-19 14:32 | Outpatient (REF) | payer MEDICARE, SELFPAY ==
[2023-12-19 14:40] LABS: Appearance Urine Clear; Color Urine Yellow; Glucose Urine UA Negative (Negative); Leukocyte Esterase Urine Negative (Negative); Nitrite Urine Negative (Negative); Specific Gravity - Urine 1.015 (1.005-1.025); Urine Blood Negative (Negative); Urine Ketones Negative (Negative); Urine Protein Negative (Neg-Trace)
[2023-12-19 15:40] LABS: Creatinine Urine 161.06 mg/dL; Microalbumin Urine < 5.0 mg/L
== END 2023-12-19 14:33 | disposition home or self-care (01) ==
LOC: HO.LNP 14:32
PROVIDERS: Visit Provider Family Medicine
DX: Z00.00 Encounter for general adult medical examination without abnormal findings (principal); I10 Essential (primary) hypertension
CPT/HCPCS: 81003; 82043; 82570

== ENCOUNTER 2023-12-25 14:31 | Outpatient (REF) | payer MEDICARE, SELFPAY ==
--- NOTE | 2023-12-25 14:33 | EMG_ITS ---
Chief complaint: Left arm pressure, tingling/numbness in all 5 fingers Reason for referral: Evaluate for radiculopathy Referred by: Dr. Sol Procedure done: Left upper extremity NCS/EMG Precautions and/or limitations: None The limb temperature was monitored continuously and remained between 32-36 degrees C during the performance of the NCS. Ulnar motor NCS was performed with moderate elbow flexion between 70-90 degrees, with across-elbow distance of 10 cm. Nerve Conduction Studies Anti Sensory Summary Table ?Stim Site NR Onset (ms) Norm Onset (ms) Peak (ms) Norm Peak (ms) O-P Amp (?V) Norm O-P Amp Site1 Site2 Delta-0 (ms) Dist (cm) Wagner (m/s) Norm Wagner (m/s) Left Median Anti Sensory (2nd Digit) Wrist ? 3.4 4.3 <3.6 28.3 >10 Wrist 2nd Digit 3.4 14.0 41 Left Radial Anti Sensory (Thumb) Forearm ? 1.8 2.6 <3.1 24.9 Forearm Thumb 1.8 0.0 Left Ulnar Anti Sensory (5th Digit) Wrist ? 3.3 4.4 <3.7 12.4 >15.0 Wrist 5th Digit 3.3 14.0 42 Motor Summary Table ?Stim Site NR Onset (ms) Norm Onset (ms) O-P Amp (mV) Norm O-P Amp iAmp (mV) Amp (1st) (%) Site1 Site2 Delta-0 (ms) Dist (cm) Wagner (m/s) Norm Wagner (m/s) Left Median Motor (Abd Poll Brev) Wrist ? 4.5 <3.9 8.3 >4.5 10.3 100.0 Elbow Wrist 3.6 20.5 57 >45 Elbow ? 8.1 8.2 10.4 98.8 Left Ulnar Motor (Abd Dig Minimi) Wrist ? 3.7 <3.0 10.9 >5 12.3 100.0 B Elbow Wrist 4.2 19.5 46 >45 B Elbow ? 7.9 9.9 11.4 90.8 A Elbow B Elbow 2.3 10.0 43 >45 A Elbow ? 10.2 9.3 10.9 85.3 EMG ?Side Muscle Nerve Root Ins Act Fibs Psw Amp Dur Poly Recrt Int Pat Comment Left 1stDorInt Ulnar C8-T1 Nml Nml Nml Nml Nml 0 Nml Complete Left FlexCarRad Median C6-7 Nml Nml Nml Nml Nml 0 Nml Complete Left Biceps Musculocut C5-6 Nml Nml Nml Nml Nml 0 Nml Complete Left Triceps Radial C6-7-8 Nml Nml Nml Nml Nml 0 Nml Complete Left Deltoid Axillary C5-6 Nml Nml Nml Nml Nml 0 Nml Complete Paraspinal EMG ?Side Muscle Nerve Root Ins Act Fibs Psw Comment Left Cervical Upper Rami Nml Nml Nml Left Cervical Mid Rami Nml Nml Nml Left Cervical Lower Rami Nml Nml Nml FINDINGS: Left median motor nerve showed prolonged distal latency, normal amplitude and normal conduction velocity. Left ulnar motor nerve showed prolonged distal latency, normal amplitude and slow conduction velocity across the elbow. Left median sensory nerve showed prolonged peak latency. Left ulnar sensory nerve showed prolonged peak latency and small latencies. Left radial sensory was within normal. Concentric needle EMG was performed in selected muscles of the left upper extremity and cervical paraspinal. Study did not reveal signs of electric abnormalities as shown in the table below. IMPRESSION: 1. This is an abnormal study. 2. There is electrodiagnostic evidence for left moderate-severe median neuropathy at the wrist, consistent with carpal tunnel syndrome. 3. There is electrodiagnostic evidence for left ulnar neuropathy at the elbow. 4. There is no electrodiagnostic evidence for brachial plexopathy or cervical radiculopathy. Thank you for your kind referral. Sobia Barba MD, MICHAEL Board Certified, [place] Board [employer] and Rehabilitation (ABPMR) Board Certified, [place] Board of Electrodiagnostic Medicine (ABEM) [place] [id number] [facility]
== END 2023-12-25 14:32 | disposition home or self-care (01) ==
LOC: HO.NEURO 14:31
PROVIDERS: PCP Family Medicine; Visit Provider Psychiatry & Neurology Neurology
DX: R20.0 Anesthesia of skin (principal); M54.2 Cervicalgia; M47.812 Spondylosis without myelopathy or radiculopathy, cervical region
CPT/HCPCS: 95886; 95909

== ENCOUNTER → 2023-12-25 14:33 | Outpatient (BNV) | payer MEDICARE, SELFPAY | PROVIDERS: PCP Family Medicine; Visit Provider Physical Medicine & Rehabilitation | DX: G56.02 Carpal tunnel syndrome, left upper limb (principal); G56.22 Lesion of ulnar nerve, left upper limb | CPT/HCPCS: 95886; 95909 ==

== ENCOUNTER 2024-01-26 13:02 | Outpatient (AMB) | payer MEDICARE, SELFPAY ==
[2024-01-26 13:09] VITALS: BP 124/60; PULSE 83; RESP 15; TEMP 36.5; O2SAT 95; BMI 30.9
--- NOTE | 2024-01-26 13:09 | MHC.PC.OV ---
Vital Signs 01/26/24 13:09 Height 5 ft 6 in Weight 191 lb 4 oz BMI 30.9 BP 124/60 Blood Pressure Location Rt brachial Position Sitting Respiration 15 Pulse 83 Pulse Source Pulse Oximeter Temp 97.7 F Temp Source Temporal Artery Scan Pulse Oximetry (%) 95 Oxygen Delivery Method Room Air Intake Visit Reasons: Mouth issues Intake Note: Patient believes he has thrush Allergies No Known Allergies Allergy (Verified 01/26/24 13:15) Medication List - Last Reconciled 01/26/24 by TADEO Treadwell albuterol sulfate mg inhalation budesonide-formoterol 160-4.5 mcg/actuation (Symbicort) 2 puffs inhalation BID bupropion HCl 75 mg PO DAILY 30 days nystatin 5 mL PO QID 10 days Oxygen Home Use As directed quetiapine 50 mg (2 x 25 mg) PO DAILY 30 days tiotropium bromide 1.25 mcg/actuation (Spiriva Respimat) 2 puffs inhalation DAILY Tobacco use date assessed: 11/11/23 Dental Screening Dental Screen Date: 11/11/23 HPI HPI Comments History of Present Illness Details 73-year-old male with COPD here today with his daughter. The chief complaint I think I have thrush Reports use of inhaled corticosteroids. Over the last few days he developed pain on his tongue. Admits to forgetting to rinse his mouth out after inhaler use. This has happened to him before. The last time several months ago. This resolved quickly with use of nystatin swish and swallow. EXAM: Awake alert accompanied by dtr missing, carious teeth, + glossitis, tongue erythematous, tender to touch w/ raised papules in the posterior aspect, pharyxn + erythema Plan: Advised to use nystatin swish and swallow as directed until resolved be sure to rinse mouth after each inhaler use add b12 given the exam today RTO education provided. This note is constructed using voice recognition software. While every effort has been made to ensure accuracy in instructor looping, still errors may have been included Sometimes, these errors may affect the content or meaning of the given sentence . [facility] Medical History (Updated 01/26/24 @ 13:21 by TADEO Treadwell) Cervical spondylarthritis Neck pain OCD (obsessive compulsive disorder) Sleep apnea Shoulder arthritis Hearing loss Esophagitis Hernia, hiatal COPD (chronic obstructive pulmonary disease) Surgical History History of placement of ear tubes Hx of cholecystectomy Family History Father Advanced dementia Mother Stroke Heart problem Social History Housing: Apartment Alcohol intake: former Year quit: 2019 Patient Tobacco Use Status: Former Tobacco user Tobacco use type: Cigarette Cigarettes Per Day: 6 Years Smoked: 50 Packs per year/per ci.00 e-Cigarette/Vaping Use: Never Used service: No Current occupational status: retired and disabled Current occupational exposures/hazards: No Cognitive needs: No Hearing needs: No Vision needs: No Questionnaire Thrive Questionnaire Date Thrive assessed: 08/25/23 ANETTE-7 AMB Questionnaire ANETTE-7 Date ANETTE - 7 assessed: 08/25/23 Source: Developed by Drs. Lui Mckeon, Mitra Lux, Efrem Chacko and colleagues, with an educational mae from [employer] Physical exam (Primary Care) Vital Signs: Last Vital Signs Temp 97.7 F 01/26/24 13:09 Pulse 83 01/26/24 13:09 Resp 15 01/26/24 13:09 BP 124/60 01/26/24 13:09 Pulse Ox 95 01/26/24 13:09 Oxygen Delivery Method Room Air 01/26/24 13:09 BMI result Body Mass Index 30.9 Tobacco/Smoking Status: Tobacco use Status Tobacco use date assessed 11/11/23 01/26/24 13:16 Patient Tobacco Use Status Former Tobacco user 01/26/24 13:16 Tobacco use type Cigarette 01/26/24 13:16 e-Cigarette/Vaping Use Never Used 01/26/24 13:16 Thrive Assessment: Date of Thrive Assessment Date Thrive assessed 08/25/23 01/26/24 13:16 Assessment and Plan Assessment & Plan (1) Glossitis: Code(s): K14.0 - Glossitis (2) Oral darryn: Code(s): B37.0 - Candidal stomatitis Medications: Refilled nystatin swish and swallow 5 mL PO QID 200 mL 1RF 10 days Patient Instructions: buy OTC b12 supplement 1000 mcg and take daily Coding Level of Care Code Est Pt Level 3 (22747) Diagnoses Glossitis K14.0 Oral darryn B37.0
== END 2024-01-26 14:27 | disposition home or self-care (01) ==
PROVIDERS: PCP Family Medicine; Visit Provider Nurse Practitioner Family
DX: K14.0 Glossitis (principal); B37.0 Candidal stomatitis
CPT/HCPCS: 99213

== ENCOUNTER 2024-03-24 14:32 | Outpatient (AMB) | payer MEDICARE, SELFPAY ==
--- NOTE | 2024-03-24 14:37 | A.OFFPC_ITS ---
Vital Signs 03/24/24 14:45 Height 5 ft 6 in Weight 198 lb BMI 32.0 BP 116/60 Position Sitting Respiration 16 Pulse 87 Pulse Source Pulse Oximeter Temp 96.9 F Temp Source Tympanic Pulse Oximetry (%) 94 Oxygen Delivery Method Room Air Intake Visit Reasons: CPE with f/u labs & health maint - see comment Intake Note: CPE Allergies No Known Allergies Allergy (Verified 03/24/24 14:38) Medication List - Last Reconciled 03/24/24 by Lcu Bergeron MD albuterol sulfate mg inhalation budesonide-formoterol 160-4.5 mcg/actuation (Symbicort) 2 puffs inhalation BID bupropion HCl 75 mg PO DAILY 30 days nystatin 5 mL PO QID 10 days Oxygen Home Use As directed quetiapine 50 mg (2 x 25 mg) PO DAILY 30 days tiotropium bromide 1.25 mcg/actuation (Spiriva Respimat) 2 puffs inhalation DAILY Tobacco use date assessed: 03/24/24 Fall risk assessment: No Falls in past year Last assessed Fall Risk: 03/24/24 Dental Screening Dental Screen Date: 03/24/24 Did you have a dental visit in the last 12 months?: Yes Did you have a dental problem in the last 6 months where you did not have access to dental care?: No Was dental information given to patient?: Patient has dentist HPI CPE with f/u labs & health maint - see comment HPI Details 73 y/o male presents for a CPE with f/u labs and health maintenance. Labs drawn 12/17/23. Reviewed labs with pt. Triglycerides 101. TC 151. LDL 93. HDL low at 38. PSA 0.93. TSH 0.89. Pt reports recent memory changes. Ongoing complaints of imbalance/unsteady gait. Reports hx of hip replacement. Has not trialed bupropion yet. Continues to smoke 1-2 cigarettes per day. HPI Comments History of Present Illness Details Documentation assistance for Luc Bergeron MD, was provided by Young Vidal, Shaper Operator on 03/24/2024 at 3:13 PM EST. I, Dr. Bergeron, have read, observed, and verified documentation. [facility] Medical History (Updated 03/24/24 @ 15:14 by Luc Bergeron MD) Cervical spondylarthritis Neck pain OCD (obsessive compulsive disorder) Sleep apnea Shoulder arthritis Hearing loss Esophagitis Hernia, hiatal COPD (chronic obstructive pulmonary disease) Surgical History History of placement of ear tubes Hx of cholecystectomy Family History Father Advanced dementia Mother Stroke Heart problem Social History (Updated 03/24/24 @ 14:44 by Yajaira Morales) Housing: Apartment Alcohol intake: former Year quit: 2019 Patient Tobacco Use Status: Current everyday Tobacco user Tobacco use type: Cigarette Cigarette Packs Per Day: 0.5 Cigarettes Per Day: 6 Years Smoked: 50 e-Cigarette/Vaping Use: Never Used Second Hand Smoke Exposure: No service: No Current occupational status: retired and disabled Current occupational exposures/hazards: No Cognitive needs: No Hearing needs: No Vision needs: No Questionnaire PHQ-9 Over the last 2 weeks, how often have you been bothered by any of the following problems? 1. Little interest or pleasure in doing things: nearly every day 2. Feeling down, depressed, or hopeless: not at all 3. Trouble falling or staying asleep, or sleeping too much: not at all 4. Feeling tired or having little energy: several days 5. Poor appetite or overeating: not at all 6. Feeling bad about yourself - or that you are a failure or have let yourself or your family down: not at all 7. Trouble concentrating on things, such as reading the newspaper or watching television: not at all 8. Moving or speaking so slowly that other people could have noticed. Or the opposite - being so fidgety or restless that you have been moving around a lot more than usual: not at all 9. Thoughts that you would be better off or of hurting yourself in some way: not at all Total score: 4 Depression Screening Interpretation: Negative Depression Screening Done: Yes 48374 - PHQ-9 Billing: Yes Source: Developed by Drs. Lui Mckeon, Mitra Lux, Efrem Chacko and colleagues, with an educational mae from [employer]. Thrive Questionnaire Date Thrive assessed: 03/24/24 I am a: Patient What is your living situation today?: I have a steady place to live Within the past 12 months, did the food you bought not last and you didn't have the money to get more?: Never true Within the past 12 months, did you worry whether your food would run out before you got money to buy more?: Never true Do you have trouble paying for medicines?: No Do you have trouble getting transportation to medical appointments?: No Do you have trouble paying your heating and electricity bill?: No Do you have trouble taking care of your child, family member or friend?: No Do you have trouble with day-to-day activities such as bathing, preparing meals, shopping, managing finances, etc.?: No Are you currently unemployed and looking for a job?: No Are you interested in more education?: No Please select the resources that you would like help with: None Currently or been in a relationship where the following occur: No concerns reported THRIVE Score: 0 AUDIT C Alcohol Use Questionnaire (AUDIT-C) 1. How often do you have a drink containing alcohol?: Never 3. How often do you have six or more drinks on one occasion?: Never Total Score: 0 ANETTE-7 AMB Questionnaire ANETTE-7 Date ANETTE - 7 assessed: 03/24/24 Feeling nervous, anxious, or on edge: 0 = Not at all Not being able to stop or control worryin = Not at all Worrying too much about different things: 0 = Not at all Trouble relaxin = Not at all Being so restless that it is hard to sit still: 0 = Not at all Becoming easily annoyed or irritable: 0 = Not at all Feeling afraid as if something awful might happen: 0 = Not at all Total ANETTE-7 score (0-4 normal; 5-9 mild; 10-14 moderate; 15-21 severe): 0 Source: Developed by Drs. Lui Mckeon, Mitra Lux, Efrem Chacko and colleagues, with an educational mae from [employer]. ANETTE-7 Assessment Billing ANETTE-7 Assessment Tool: ANETTE-7 Assessment 55082 Review of Systems Const Denies chills, Denies fatigue, Denies fever(s), Denies headache(s) and Denies weakness Eyes Denies change in vision ENT Denies dizziness, Denies headache(s), Denies hearing loss, Denies nasal congestion, Denies sinus pain, Denies sinus pressure and Denies sore throat Card Denies chest pain, Denies lightheadedness, Denies dyspnea and Denies other (palpitations) Resp Denies cough, Denies dyspnea and Denies wheezing GI Denies abdominal pain, Denies melena, Denies hematochezia, Denies change in bowel habits, Denies dyspepsia and Denies nausea Denies hematuria and Denies dysuria Musc Denies abnormal gait, Denies myalgias, Denies arthralgias, Denies numbness and Denies tingling Skin/Breast Denies rash, Denies unusual bruising and Denies wounds Neuro Denies abnormal gait, Denies dizziness, Denies headache(s), Denies memory loss, Denies numbness, Denies Sensory deficit (Neuro), Denies tingling and Denies weakness Psych Denies anxiety, Denies depression and Denies memory loss Endo Denies cold intolerance, Denies fatigue, Denies heat intolerance, Denies polydipsia and Denies polyuria César/Lymph Denies easy bleeding and Denies easy bruising Aller/Immun Denies wheezing Physical exam (Primary Care) Vital Signs: Last Vital Signs Temp 96.9 F 03/24/24 14:45 Pulse 87 03/24/24 14:45 Resp 16 03/24/24 14:45 BP 116/60 03/24/24 14:45 Pulse Ox 94 03/24/24 14:45 Oxygen Delivery Method Room Air 03/24/24 14:45 BMI result Body Mass Index 32.0 Tobacco/Smoking Status: Tobacco use Status Tobacco use date assessed 03/24/24 03/24/24 14:48 Patient Tobacco Use Status Current everyday Tobacco 03/24/24 14:48 Tobacco use type Cigarette 03/24/24 14:44 e-Cigarette/Vaping Use Never Used 03/24/24 14:44 PHQ-9: PHQ-9 Score PHQ-9: Total score 4 03/24/24 14:42 Depression Screening Interpretation: Negative Thrive Assessment: Date of Thrive Assessment Date Thrive assessed 03/24/24 03/24/24 14:42 Currently or been in a relationship where the following occur: No concerns reported Const General: no acute distress, well developed, alert and awake Nutritional Appearance: well nourished Orientation/consciousness: patient oriented x3 HENMT Head: Yes normocephalic and Yes atraumatic Ears: hearing grossly normal bilaterally and TM's normal bilaterally General nose exam: Normal external nose present and Normal nares present Mouth: Normal oral and palatal mucosa present and moist mucous membranes Teeth and gingiva: dentition normal Throat: Yes posterior oropharynx normal Eyes General: appearance normal, both eyes and all related structures Pupils: Equal, round and reactive pupils present and Pupil accommodation reflex normal EOM: EOMs intact bilaterally Neck Neck: Yes normal visual inspection, Yes no lymphadenopathy and Yes trachea midline Thyroid: Thyroid normal Carotids: no bruits Lymphatic: no lymphadenopathy noted Chest Chest palpation & inspection: normal inspection of the chest Resp Effort & Inspection: normal respiratory effort Auscultation: clear to auscultation bilaterally Cardio Rate: regular rate Rhythm: regular rhythm Heart sounds: S1 normal heart sound present, S2 normal heart sound present, no gallops, no murmurs and no rubs Bruits: no abdominal aortic bruits and no carotid bruits GI Palpation (GI): No Abdominal aortic bruit present, Soft to palpation, nontender, No hepatosplenomegaly present and No Rebound tenderness present Auscultation: normal bowel sounds General: Yes no CVA tenderness Back/Spine/Pelvis Back: no CVA tenderness Cervical Spine: cervical ROM normal and No Cervical spine tenderness Thoracic/Lumbar Spine: thoraco-lumbar ROM normal, No pain with thoraco-lumbar ROM, No thoracic spinal tenderness and No lumbar spinal tenderness Skin Lesions: no lesions Rashes: no rashes Trauma: no lacerations or abrasions Wounds: no wounds Nails: normal Neuro General: patient oriented x3 Cranial nerves: Yes Equal, round and reactive pupils present Cognition (Neuro): normal cognition Gait exam (Neuro): Normal gait present Motor exam (neuro): 5/5 motor strength present throughout Sensory Exam: No Sensory deficit (Neuro) Deep tendon reflexes (DTR's): Right patellar reflex intensity grade: 2+ and Left patellar reflex intensity grade: 2+ Extrem General: Yes normal to inspection and No edema Psych Appearance: grossly normal Affect: normal affect Attitude: cooperative Thought process: Normal thought process present Assessment and Plan Assessment & Plan (1) Adult general medical exam: Code(s): Z00.00 - Encounter for general adult medical examination without abnormal findings Plan: Presents?for?complete?physical?exam Stable (2) Low HDL (under 40): Code(s): 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 - Lipoprotein deficiency Plan: Encouraged?exercise (3) Change in hearing: Code(s): H91.90 - Unspecified hearing loss, unspecified ear Plan: Referred?for?audiology?testing (4) Smoker: Code(s): F17.200 - Nicotine dependence, unspecified, uncomplicated Plan: Still?smoking?1-2?cigarettes?per?day Encouraged?cessation Has?not?tried?bupropion?but?may?do?so (5) Unsteady gait: Code(s): R26.81 - Unsteadiness on feet Plan: This?seems?to?be?secondary?to?hip?replacement?rather?than?imbalance Lower?extremity?strength?is?okay (6) Memory changes: Code(s): R41.3 - Other amnesia Plan: Referred?to?[facility]?memory?clinic (7) Abdominal mass: Code(s): R19.00 - Intra-abdominal and pelvic swelling, mass and lump, unspecified site Plan: Impulse?with?Valsalva Check?ultrasound (8) Screening for colon cancer: Code(s): Z12.11 - Encounter for screening for malignant neoplasm of colon Plan: Patient?says?he?had?a?colonoscopy?at?[facility]?[place]. He?was?told?to?follow-up?in?3-5?years.??Unclear?how?long?it ?has?been.??I?will?request?the?report (9) Screening for prostate cancer: Code(s): Z12.5 - Encounter for screening for malignant neoplasm of prostate Plan: PSA?was?within?normal?range Orders: Orders US abdomen limited Today R19.00 - Intra-abdominal and pelvic swelling, mass and lump, unspecified site Referrals Audiology Referral H91.90 - Unspecified hearing loss, unspecified ear Neuropsychiatry Referral R41.3 - Other amnesia Coding Level of Care Code Est Pt Level 3 (36042) Est Pt Prev Care >65y(63562) Diagnoses Adult general medical exam Z00.00 Low HDL (under 40) E78.6 Change in hearing H91.90 Smoker F17.200 Unsteady gait R26.81 Memory changes R41.3 Abdominal mass R19.00 Screening for colon cancer Z12.11 Screening for prostate cancer Z12.5 Additional Codes ANETTE-7 Assessment Billing - ANETTE-7 Assessment Tool: ANETTE-7 Assessment 43723 ([id number])
[2024-03-24 14:45] VITALS: BP 116/60; PULSE 87; RESP 16; TEMP 36.1; O2SAT 94; BMI 32.0
== END 2024-03-24 15:14 | disposition home or self-care (01) ==
PROVIDERS: PCP Family Medicine; Visit Provider Family Medicine
DX: Z00.00 Encounter for general adult medical examination without abnormal findings (principal); R19.00 Intra-abdominal and pelvic swelling, mass and lump, unspecified site; E78.6 Lipoprotein deficiency; F17.200 Nicotine dependence, unspecified, uncomplicated; R26.81 Unsteadiness on feet; R41.3 Other amnesia; Z12.11 Encounter for screening for malignant neoplasm of colon; Z12.5 Encounter for screening for malignant neoplasm of prostate
CPT/HCPCS: 99213; 99397

== ENCOUNTER 2024-03-31 14:34 | Outpatient (AMB) | payer MEDICARE, SELFPAY ==
--- NOTE | 2024-03-31 14:36 | MHC.OFFVIS ---
Vital Signs 03/31/24 14:38 Height 5 ft 6 in Weight 198 lb BMI 32.0 BP 112/70 Blood Pressure Location Rt brachial Position Sitting Respiration 16 Pulse 68 Pulse Source Pulse Oximeter Pulse Oximetry (%) 97 Oxygen Delivery Method Room Air Intake Visit Reasons: follow up Anesthesia of skin Intake Note: Pt presents tot he office for a 4 month follow up for cervical spondyloarthritis. Medical And Health Services Manager Required: No Allergies No Known Allergies Allergy (Verified 03/31/24 14:37) Medication List - Last Reconciled 03/31/24 by Carmen Sol MD albuterol sulfate mg inhalation budesonide-formoterol 160-4.5 mcg/actuation (Symbicort) 2 puffs inhalation BID bupropion HCl 75 mg PO DAILY 30 days nystatin 5 mL PO QID 10 days Oxygen Home Use As directed quetiapine 50 mg (2 x 25 mg) PO DAILY 30 days tiotropium bromide 1.25 mcg/actuation (Spiriva Respimat) 2 puffs inhalation DAILY HPI Comments Details: 73y/o right handed male comes for follow up of left UE numbness and paresthesias His EMG showed severe left median nerve compression in the wrist and ulnar nerve compression in the elbow No plexopathy or radiculopathy. It started many years ago( 10 Yrs ) and he was diagnosed with C 5 radiculopathy.His symptoms are intermittent with recent worsening. He reports tingling in his left hand intermittently . He has intermittent neck discomfort . No bladder issues or bowel issues. He reports some balance issues for many years now. He has h/o COPD sleep apnea- is on overnight oxygen sleeps well. 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 Carpal tunnel syndrome of left wrist Cervical spondylarthritis Neck pain OCD (obsessive compulsive disorder) Sleep apnea Shoulder arthritis Hearing loss Esophagitis Hernia, hiatal COPD (chronic obstructive pulmonary disease) Surgical History History of placement of ear tubes Hx of cholecystectomy Family History Father Advanced dementia Mother Stroke Heart problem Social History Housing: Apartment Alcohol intake: former Year quit: 2019 Patient Tobacco Use Status: Current everyday Tobacco user Tobacco use type: Cigarette Cigarette Packs Per Day: 0.5 Cigarettes Per Day: 6 Years Smoked: 50 e-Cigarette/Vaping Use: Never Used Second Hand Smoke Exposure: No service: No Current occupational status: retired and disabled Current occupational exposures/hazards: No Cognitive needs: No Hearing needs: No Vision needs: No Physical Exam Vital Signs: Last Vital Signs Pulse 68 03/31/24 14:38 Resp 16 03/31/24 14:38 BP 112/70 03/31/24 14:38 Pulse Ox 97 03/31/24 14:38 Oxygen Delivery Method Room Air 03/31/24 14:38 BMI result Body Mass Index 32.0 Const General: cooperative, healthy appearing, comfortable and no acute distress Nutritional Appearance: average body habitus Orientation/consciousness: patient oriented x3 Neck Neck: Yes no meningeal signs Neuro General: patient oriented x3, gait normal, tone normal, moves all extremities, no meningeal signs and no focal motor deficits Cognition (Neuro): normal cognition Gait exam (Neuro): Antalgic gait present Motor exam (neuro): 5/5 motor strength present throughout and Normal motor muscle tone present throughout Deep tendon reflexes (DTR's): Right triceps reflex intensity grade: 2+, Left triceps reflex intensity grade: 3+, Rt Biceps (C5, C6): 2+, Left biceps reflex intensity grade: 3+, Right brachioradialis reflex intensity grade: 2+, Left brachioradialis reflex intensity grade: 3+, Right patellar reflex intensity grade: 3+ and Left patellar reflex intensity grade: 3+ Coordination: [id number] test normal Results Reviewed Results Reviewed: This is an abnormal study. 2. There is electrodiagnostic evidence for left moderate-severe median neuropathy at the wrist, consistent with carpal tunnel syndrome. 3. There is electrodiagnostic evidence for left ulnar neuropathy at the elbow. 4. There is no electrodiagnostic evidence for brachial plexopathy or cervical radiculopathy. 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
[2024-03-31 14:38] VITALS: BP 112/70; PULSE 68; RESP 16; O2SAT 97; BMI 32.0
== END 2024-03-31 15:04 | disposition home or self-care (01) ==
PROVIDERS: PCP Family Medicine; Visit Provider Psychiatry & Neurology Neurology
DX: M54.2 Cervicalgia (principal); M47.812 Spondylosis without myelopathy or radiculopathy, cervical region; G56.02 Carpal tunnel syndrome, left upper limb; G56.22 Lesion of ulnar nerve, left upper limb
CPT/HCPCS: 99214

== ENCOUNTER → 2024-03-31 14:34 | Outpatient (BNVA) | payer MEDICARE, SELFPAY | PROVIDERS: PCP Family Medicine; Visit Provider Psychiatry & Neurology Neurology | DX: R20.0 Anesthesia of skin (principal); M47.812 Spondylosis without myelopathy or radiculopathy, cervical region; G56.02 Carpal tunnel syndrome, left upper limb; G56.22 Lesion of ulnar nerve, left upper limb | CPT/HCPCS: 99212 ==

== ENCOUNTER 2024-04-14 15:46 | Outpatient (REF) | payer MEDICARE, SELFPAY | END 2024-04-14 15:47 | disposition home or self-care (01) | LOC: HO.SH 15:46 | PROVIDERS: Visit Provider Family Medicine | DX: Z01.118 Encounter for examination of ears and hearing with other abnormal findings (principal); H90.3 Sensorineural hearing loss, bilateral | CPT/HCPCS: 92557; 92567 ==

== ENCOUNTER 2024-05-04 14:03 | Outpatient (AMB) | payer MEDICARE, SELFPAY ==
[2024-05-04 14:30] VITALS: BMI 32.0
--- NOTE | 2024-05-04 14:30 | A.OFFVIS_ITS ---
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 Patient reports numbness and tingling that occurs daily, constant. Patient is able to evp business development, squeeze, and open and close lids. Denies finger locking. Patient states pain is about the same in the morning and night. Has not tried braces, steroid injections, PT/ OT. Denies any prior injuries or surgeries to the hands. EMG done 12/25/23 positive for left CTS and ulnar neuropathy at the elbow. Patient would like to discuss surgery today. 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 He complains of numbness in all fingers of his left hand. Symptoms constant, worse at night. He has difficulties with weakness when gripping or holding objects. He reports no improvement following prior treatment options. He denies any prior surgeries. He denies any numbness in his right hand. He is a smoker, with a Hx of COPD & depression. 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 Carpal tunnel syndrome of left wrist Cervical spondylarthritis Neck pain OCD (obsessive compulsive disorder) Sleep apnea Shoulder arthritis Hearing loss Esophagitis Hernia, hiatal COPD (chronic obstructive pulmonary disease) Surgical History History of placement of ear tubes Hx of cholecystectomy Family History Father Advanced dementia Mother Stroke Heart problem Social History (Updated 05/04/24 @ 14:36 by ELIF Garland) Housing: Apartment Alcohol intake: former Year quit: 2019 Patient Tobacco Use Status: Current everyday Tobacco user Tobacco use type: Cigarette Cigarette Packs Per Day: 0.5 Cigarettes Per Day: 6 Years Smoked: 50 e-Cigarette/Vaping Use: Never Used Second Hand Smoke Exposure: No service: No Current occupational status: retired and disabled Current occupation: rt handed Current occupational exposures/hazards: No Cognitive needs: No Hearing needs: No Vision needs: No Review of Systems Const All systems reviewed & are unremarkable except as noted in HPI and below Physical Exam Vital Signs: BMI result Body Mass Index 32.0 Const General: cooperative, healthy appearing and no acute distress Orientation/consciousness: patient oriented x3 HEENT Head: Yes normocephalic and Yes atraumatic Eyes EOM: EOMs intact bilaterally Resp Effort & Inspection: normal respiratory effort and able to speak in complete sentences Cardio Jugular venous distension: no JVD Skin General skin exam: turgor normal Rashes: no rashes Neuro General: patient oriented x3 Extrem Other: Evaluation of Left Upper Extremity: The patient is alert, oriented, and in no acute distress Neuro: Median, Ulnar, Radial nerves motor and sensory intact and sensation is normal to the tips of all digits No thenar or intrinsic wasting Good APB muscle belly firing and good finger cross Good ABduction & ADduction Vascular: Cap refill brisk ROM: He can make a fist and extend all his digits No locking or catching Skin: No lacerations or abrasions. General: No Ecchymosis. No Erythema or evidence of infection. Nerve Conduction Study: Left-side only IMPRESSION: 1. This is an abnormal study. 2. There is electrodiagnostic evidence for left moderate-severe median neuropathy at the wrist, consistent with carpal tunnel syndrome. 3. There is electrodiagnostic evidence for left ulnar neuropathy at the elbow. 4. There is no electrodiagnostic evidence for brachial plexopathy or cervical radiculopathy. Sobia Barba MD, MICHAEL 12/25/23 Psych Appearance: grossly normal Affect: normal affect Attitude: cooperative Assessment & Plan Assessment & Plan (1) Carpal tunnel syndrome of left wrist: Code(s): G56.02 - Carpal tunnel syndrome, left upper limb Category: Medical (2) Cubital tunnel syndrome on left: Code(s): G56.22 - Lesion of ulnar nerve, left upper limb Category: Medical (3) COPD (chronic obstructive pulmonary disease): Code(s): J44.9 - Chronic obstructive pulmonary disease, unspecified Category: Medical Qualifiers: COPD type: unspecified COPD Qualified Code(s): J44.9 - Chronic obstructive pulmonary disease, unspecified (4) Recurrent mild major depressive disorder with anxiety: Code(s): F33.0 - Major depressive disorder, recurrent, mild; F41.9 - Anxiety disorder, unspecified Category: Medical (5) Smoker: Code(s): F17.200 - Nicotine dependence, unspecified, uncomplicated Category: Social Hx Plan Assessment & Plan: 1. Left carpal tunnel syndrome, moderate-severe With dense numbness 2. Left cubital tunnel syndrome With dense numbness I educated him about this condition I discussed operative and non-operative treatment options The patient would like to proceed with surgery The risks and benefits of operative treatment were discussed with the patient and the patient wishes to proceed with surgery. These risks include, but are not limited to risk of damage to blood vessels, nerves, tendons, infection, recurrence, incomplete relief of preoperative symptoms, persistent pain, possible need for further surgery and the risks associated with regional blocks and anesthesia. I explained the risks of his sensation not returning, but that surgery is important to maintain muscle function and preserve any sensation possible. He expressed understanding The plan is to take the patient to the operating room sometime in the next few weeks for the following procedures: 1. Left carpal tunnel release, under general 2. Left cubital tunnel release vs transposition, under general All of the preoperative paperwork including the consent was reviewed today. All the patient's questions were answered. The patient understands that they will be contacted by our assistant professor of surgery soon to schedule this procedure. He denies Diabetes, blood thinners, asthma, heart, kidney issues He is a smoker & has COPD, which he says is controlled. He will need Pulmonology clearance prior to surgery Scribed for Shania Capone MD by Jesus Bello director medical surgical, on 05/04/24 at 3:05 PM, EST. Coding Level of Care Code New Pt Level 4 (76492) Diagnoses Carpal tunnel syndrome of left wrist G56.02 Cubital tunnel syndrome on left G56.22 Chronic obstructive pulmonary disease, unspecified COPD type J44.9 COPD type: unspecified COPD Recurrent mild major depressive disorder with anxiety F33.0; F41.9 Smoker F17.200
== END 2024-05-04 15:21 | disposition home or self-care (01) ==
PROVIDERS: PCP Family Medicine; Visit Provider Orthopaedic Surgery
DX: G56.02 Carpal tunnel syndrome, left upper limb (principal); G56.22 Lesion of ulnar nerve, left upper limb; J44.9 Chronic obstructive pulmonary disease, unspecified; F33.0 Major depressive disorder, recurrent, mild; F41.9 Anxiety disorder, unspecified; F17.200 Nicotine dependence, unspecified, uncomplicated
CPT/HCPCS: 99204

== ENCOUNTER → 2024-05-04 14:03 | Outpatient (BNVA) | payer MEDICARE, SELFPAY | PROVIDERS: PCP Family Medicine; Visit Provider Orthopaedic Surgery | DX: G56.02 Carpal tunnel syndrome, left upper limb (principal); G56.22 Lesion of ulnar nerve, left upper limb; J44.9 Chronic obstructive pulmonary disease, unspecified; F33.0 Major depressive disorder, recurrent, mild; F41.9 Anxiety disorder, unspecified; F17.210 Nicotine dependence, cigarettes, uncomplicated | CPT/HCPCS: 99202 ==

== ENCOUNTER 2024-06-04 10:01 | Outpatient (REF) | payer MEDICARE, SELFPAY ==
--- NOTE | ~2024-06-04 | US_ITS ---
EXAMINATION: US ABDOMEN LIMITED CLINICAL INFORMATION: Intra-abdominal and pelvic swelling, mass and lump, unspecified. Evaluate for ventral hernia. COMPARISON: None available. TECHNIQUE: Real-time imaging of the region of concern in the mid abdomen. FINDINGS: The cutaneous, subcutaneous, muscular and fascial planes are unremarkable. No hernia defect is seen. There is no mass or fluid collection. No lymphadenopathy is seen. US/US abdomen limited IMPRESSION: Unremarkable examination. Electronically signed by: Damian Goff MD 06/06/2024 10:29 PM SOFIE TELLO
== END 2024-06-04 10:02 | disposition home or self-care (01) ==
LOC: HO.US 10:01
PROVIDERS: PCP Family Medicine; Visit Provider Family Medicine
DX: R19.00 Intra-abdominal and pelvic swelling, mass and lump, unspecified site (principal)
CPT/HCPCS: 76705

== ENCOUNTER 2024-06-16 14:25 | Outpatient (AMB) | payer MEDICARE, SELFPAY ==
--- NOTE | 2024-06-16 14:34 | A.OFFPC_ITS ---
Vital Signs 06/16/24 14:38 Height 5 ft 7 in Weight 187 lb 6 oz BMI 29.3 BP 113/55 L Blood Pressure Location Lt brachial Position Sitting Respiration 16 Pulse 71 Pulse Source Pulse Oximeter Temp 97.9 F Temp Source Temporal Artery Scan Pulse Oximetry (%) 96 Oxygen Delivery Method Room Air Intake Visit Reasons: f/u ultrasound, chronic conditions Intake Note: ultrasound results and chronic conditions Allergies No Known Allergies Allergy (Verified 06/16/24 14:37) Medication List - Last Reconciled 06/16/24 by Luc Bergeron MD albuterol sulfate mg inhalation budesonide-formoterol 160-4.5 mcg/actuation (Symbicort) 2 puffs inhalation BID bupropion HCl 75 mg PO DAILY 30 days Oxygen Home Use As directed quetiapine 50 mg (2 x 25 mg) PO DAILY 30 days tiotropium bromide 1.25 mcg/actuation (Spiriva Respimat) 2 puffs inhalation DAILY Tobacco use date assessed: 03/24/24 Dental Screening Dental Screen Date: 03/24/24 HPI f/u ultrasound, chronic conditions HPI Details 73 y/o male presents to f/u memory luciano es and neuropsych report. Also f/u hearing test and abdominal ultrasound to rule out hernia. Abdomen ultrasound 06/04/24 was unremarkable. Blood pressure today 113/55, 71p, O2 sat today 96%. Has an albuterol, Symbicort, spiriva. They note hearing changes. They report he has had a hearing test about 2 months ago. HPI Comments History of Present Illness Details Documentation assistance for Luc Bergeron MD, was provided by Young Vidal,? Wardrobe Stylist on 06/16/2024 a 3:09 PM EST. I, Dr. Bergeron, have read, observed, and verified documentation. 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 Carpal tunnel syndrome of left wrist Cervical spondylarthritis Neck pain OCD (obsessive compulsive disorder) Sleep apnea Shoulder arthritis Hearing loss Esophagitis Hernia, hiatal COPD (chronic obstructive pulmonary disease) Surgical History History of placement of ear tubes Hx of cholecystectomy Family History Father Advanced dementia Mother Stroke Heart problem Social History (Updated 05/04/24 @ 14:36 by ELIF Garland) Housing: Apartment Alcohol intake: former Year quit: 2019 Patient Tobacco Use Status: Current everyday Tobacco user Tobacco use type: Cigarette Cigarette Packs Per Day: 0.5 Cigarettes Per Day: 6 Years Smoked: 50 e-Cigarette/Vaping Use: Never Used Second Hand Smoke Exposure: No service: No Current occupational status: retired and disabled Current occupation: rt handed Current occupational exposures/hazards: No Cognitive needs: No Hearing needs: No Vision needs: No Questionnaire PHQ-9 Over the last 2 weeks, how often have you been bothered by any of the following problems? 1. Little interest or pleasure in doing things: several days 2. Feeling down, depressed, or hopeless: several days 3. Trouble falling or staying asleep, or sleeping too much: not at all 4. Feeling tired or having little energy: not at all 5. Poor appetite or overeating: not at all 6. Feeling bad about yourself - or that you are a failure or have let yourself or your family down: not at all 7. Trouble concentrating on things, such as reading the newspaper or watching television: not at all 8. Moving or speaking so slowly that other people could have noticed. Or the opposite - being so fidgety or restless that you have been moving around a lot more than usual: not at all 9. Thoughts that you would be better off or of hurting yourself in some way: not at all Total score: 2 Source: Developed by Drs. Lui Mckeon, Mitra Lux, Efrem Chacko and colleagues, with an educational mae from [employer]. Thrive Questionnaire Date Thrive assessed: 03/24/24 I am a: Patient What is your living situation today?: I have a steady place to live Within the past 12 months, did the food you bought not last and you didn't have the money to get more?: Never true Within the past 12 months, did you worry whether your food would run out before you got money to buy more?: Never true Do you have trouble paying for medicines?: No Do you have trouble getting transportation to medical appointments?: No Do you have trouble paying your heating and electricity bill?: No Do you have trouble taking care of your child, family member or friend?: No Do you have trouble with day-to-day activities such as bathing, preparing meals, shopping, managing finances, etc.?: No Are you currently unemployed and looking for a job?: No Are you interested in more education?: No Please select the resources that you would like help with: None Currently or been in a relationship where the following occur: No concerns reported THRIVE Score: 0 AUDIT C Alcohol Use Questionnaire (AUDIT-C) 1. How often do you have a drink containing alcohol?: Never Total Score: 0 ANETTE-7 AMB Questionnaire ANETTE-7 Date ANETTE - 7 assessed: 03/24/24 Feeling nervous, anxious, or on edge: 0 = Not at all Not being able to stop or control worryin = Not at all Worrying too much about different things: 0 = Not at all Trouble relaxin = Not at all Being so restless that it is hard to sit still: 0 = Not at all Becoming easily annoyed or irritable: 0 = Not at all Feeling afraid as if something awful might happen: 0 = Not at all Total ANETTE-7 score (0-4 normal; 5-9 mild; 10-14 moderate; 15-21 severe): 0 Source: Developed by Drs. Lui Mckeon, Mitra Lux, Efrem Chacko and colleagues, with an educational mae from [employer]. Review of Systems Const Denies chills, Denies fatigue, Denies fever(s), Denies headache(s) and Denies weakness ENT Denies dizziness and Denies headache(s) Card Denies dyspnea Resp Denies cough, Denies dyspnea, Denies wheezing and Denies other (shortness of breath) Musc Denies numbness and Denies tingling Neuro Denies dizziness, Denies headache(s), Denies numbness, Denies tingling and Denies weakness Psych Denies anxiety and Denies depression Endo Denies fatigue Aller/Immun Denies wheezing Physical exam (Primary Care) Vital Signs: Last Vital Signs Temp 97.9 F 06/16/24 14:38 Pulse 71 06/16/24 14:38 Resp 16 06/16/24 14:38 BP 113/55 L 06/16/24 14:38 Pulse Ox 96 06/16/24 14:38 Oxygen Delivery Method Room Air 06/16/24 14:38 BMI result Body Mass Index 29.3 Tobacco/Smoking Status: Tobacco use Status Tobacco use date assessed 03/24/24 06/16/24 14:35 Patient Tobacco Use Status Current everyday Tobacco 06/16/24 14:35 Tobacco use type Cigarette 06/16/24 14:35 e-Cigarette/Vaping Use Never Used 06/16/24 14:35 PHQ-9: PHQ-9 Score PHQ-9: Total score 2 06/16/24 15:02 Thrive Assessment: Date of Thrive Assessment Date Thrive assessed 03/24/24 06/16/24 14:35 Currently or been in a relationship where the following occur: No concerns reported Const General: well developed; No acute distress Nutritional Appearance: well nourished Orientation/consciousness: patient oriented x3 HENMT Head: Yes normocephalic and Yes atraumatic Eyes General: appearance normal, both eyes and all related structures Pupils: Equal, round and reactive pupils present EOM: EOMs intact bilaterally Resp Other: Slight wheezing throughout with secretions Effort & Inspection: normal respiratory effort Neuro General: patient oriented x3 and gait normal Cranial nerves: Yes Equal, round and reactive pupils present Psych Affect: normal affect Coding Level of Care Code Est Pt Level 4 (25873) Diagnoses Abdominal mass R19.00 Memory changes R41.3 COPD (chronic obstructive pulmonary disease) J44.9 Change in hearing H91.90 Carpal tunnel syndrome of left wrist G56.02 Assessment & Plan Assessment & Plan (1) Abdominal mass: Code(s): R19.00 - Intra-abdominal and pelvic swelling, mass and lump, unspecified site Category: Medical Plan: Likely?diathesis?of?rectus?muscles No?hernia?or?other?mass?seen?on?ultrasound Stable No?pain. He?can?let?me?know?if?he?has?any?other?concerns (2) Memory changes: Code(s): R41.3 - Other amnesia Category: Medical Plan: Had?made?a?referral?to?memory?Clinic?at?[facility] He?has?not?been?called?yet.??Gave?patient?and?his?daughter?phone?number He?will?let?know?if?he?has?any?problems?can?scheduled (3) COPD (chronic obstructive pulmonary disease): Code(s): J44.9 - Chronic obstructive pulmonary disease, unspecified Category: Medical Plan: Recent?hospital?visit?for?COPD?exacerbation His?nebulizer?had?broken.??He?now?has?a?new?1 He?was?prescribed?24?hour?oxygen?but?is?only?using?it?at?bedtime?or?with?exertio n?or?shortness?of?breath. Advised?him?to?follow-up?with?his?logging equipment operator,??Ruth regarding?oxygen?use.??His?oxygen?saturation?today?in?the?office?on?room?air?is? 96%. He?does?have?some?faint?diffuse?wheezing?and?some?secretion?sounds Continue?using?your?inhaled?medications?as?prescribed Has?not?been?using?albuterol?so?much?and?I?advised?him?to?use?this?more?frequent ly?as?he?does?have?diffuse?wheezing (4) Change in hearing: Code(s): H91.90 - Unspecified hearing loss, unspecified ear Category: Medical Plan: Patient?says?he?went?for?hearing?testing?which?does?appear?available?yet Ask?the?office?to?obtain?results (5) Carpal tunnel syndrome of left wrist: Code(s): G56.02 - Carpal tunnel syndrome, left upper limb Category: Medical Plan: Scheduled?for?surgery?to?repair?carpal?tunnel?syndrome?with??[facility]
[2024-06-16 14:38] VITALS: BP 113/55; PULSE 71; RESP 16; TEMP 36.6; O2SAT 96; BMI 29.3
== END 2024-06-16 15:15 | disposition home or self-care (01) ==
PROVIDERS: PCP Family Medicine; Visit Provider Family Medicine
DX: R19.00 Intra-abdominal and pelvic swelling, mass and lump, unspecified site (principal); R41.3 Other amnesia; J44.9 Chronic obstructive pulmonary disease, unspecified; H91.90 Unspecified hearing loss, unspecified ear; G56.02 Carpal tunnel syndrome, left upper limb

== ENCOUNTER → 2024-06-16 14:25 | Outpatient (BNVA) | payer MEDICARE, SELFPAY | PROVIDERS: PCP Family Medicine; Visit Provider Family Medicine | DX: R19.00 Intra-abdominal and pelvic swelling, mass and lump, unspecified site (principal); R41.3 Other amnesia; J44.9 Chronic obstructive pulmonary disease, unspecified; H91.90 Unspecified hearing loss, unspecified ear; G56.02 Carpal tunnel syndrome, left upper limb | CPT/HCPCS: 99212 ==

== ENCOUNTER 2024-07-15 10:55 | Day surgery (SDC) | payer MEDICARE, SELFPAY ==
[2024-07-13 07:54] VITALS: BMI 32.0
--- NOTE | 2024-07-13 14:50 | P.CONAN_ITS ---
Documented by User: Flora Dean NP 07/14/24 10:32 HPI - Anesthesia Eval Consult details Narrative: 73yo M for Left Cubital Tunnel Release, Carpal Tunnel Release Surgeon requested Pulmo Clearance Per 05/2024 PCP office visit: Recent?hospital?visit?for?COPD?exacerbation His?nebulizer?had?broken.??He?now?has?a?new?1 He?was?prescribed?24?hour?oxygen?but?is?only?using?it?at?bedtime?or?with?exertio n?or?shortness?of?breath. Advised?him?to?follow-up?with?his?brick cleaner,??Ruth regarding?oxygen?use.??His?oxygen?saturation?today?in?the?office?on?room?air?is? 96%. 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 (Acute) Carpal tunnel syndrome of left wrist (Acute) Abdominal mass (Acute) Change in hearing (Acute) Memory changes (Acute) Oral darryn (Acute) Glossitis (Acute) Cervical spondylarthritis (Acute) Neck pain (Acute) Thrush (Acute) Numbness of left hand (Acute) Unsteady gait (Acute) Pustular psoriasis (Acute) Hypokalemia (Acute) Diarrhea (Acute) Abdominal pain (Acute) Anxiety (Acute) Dysphagia (Acute) History of Morton's esophagus (Acute) Constipation (Acute) History of esophageal stricture (Acute) Leukocytosis (Acute) COPD (chronic obstructive pulmonary disease) (Acute) Normal physical exam (Acute) Recurrent mild major depressive disorder with anxiety (Acute) Radicular pain of shoulder (Acute) Left shoulder strain (Acute) Depression (Acute) Left shoulder pain (Acute) Tympanostomy tube check (Acute) Adult general medical exam (Acute) Screening for prostate cancer (Acute) Screening for colon cancer (Acute) Low back pain (Acute) Low HDL (under 40) (Acute) Smoker (Acute) Weight gain (Acute) Sleep apnea (Acute) Hiatal hernia (Acute) Esophagitis (Acute) Cervical radiculopathy (Acute) Depression with anxiety (Acute) COPD (chronic obstructive pulmonary disease) (Acute) Past Medical History Medical History 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 Carpal tunnel syndrome of left wrist Cervical spondylarthritis Neck pain OCD (obsessive compulsive disorder) Sleep apnea Shoulder arthritis Hearing loss Esophagitis Hernia, hiatal COPD (chronic obstructive pulmonary disease) Family History Family History Father Advanced dementia Mother Stroke Heart problem Surgical History Surgical History History of placement of ear tubes Hx of cholecystectomy Social History Social History Housing: Apartment Are you a primary weekend caregiver to a significant other at home: No Do you presently have visiting nurse or other home services: No Alcohol intake: former Year quit: 2019 Patient Tobacco Use Status: Current everyday Tobacco user Tobacco use type: Cigarette Cigarette Packs Per Day: 5 Cigarettes Per Day: 100.0 Years Smoked: 50 e-Cigarette/Vaping Use: Never Used Second Hand Smoke Exposure: No Use of substances other than those prescribed or required for medical reasons: No Have you been hit, kicked, punched, or otherwise hurt by someone within the past year? If so, by whom?: No Are you DNR?: No Advance Directives: No Advance Directives Information Provided: Yes Recently lost weight without trying: No Nutrition Risks: No Nutritional Risk Poor oral hygiene: No service: No Current occupational status: retired and disabled Current occupation: rt handed Current occupational exposures/hazards: No Cognitive needs: No Hearing needs: No Vision needs: No Meds Allergies Allergy/AdvReac Type Severity Reaction Status Date / Time No Known Allergies Allergy Verified 07/15/24 12:06 Home Medications ?Medication ?Instructions ?Recorded ?Confirmed ?Last Taken ?Type Oxygen Home Use #1 ea 11/17/20 06/16/24 Unknown History budesonide-formoterol HFA 160 2 puff inhalation BID 11/17/20 06/16/24 Unknown History mcg-4.5 mcg/actuation aerosol inhaler (Symbicort) tiotropium bromide 1.25 2 puff inhalation DAILY 11/17/20 06/16/24 Unknown History mcg/actuation mist for inhalation (Spiriva Respimat) albuterol sulfate 2.5 mg/3 mL mg inhalation 05/16/22 06/16/24 Unknown History (0.083 %) solution for nebulization Exam Height,Weight and Vital Signs: Height 5 ft 6 in Weight 89.811 kg Pertinent Lab Results Pertinent Lab Results: Laboratory Tests 12/17/23 11:05 WBC 11.6 H Hgb 15.6 Hct 45.7 Plt Count 365 Sodium 137 Potassium 3.8 Chloride 103 Carbon Dioxide 25 BUN 6 L Creatinine 0.82 Assessment and Plan Assessment Anesthesia Assessment: Chart Reviewed Documented by User: Soraya Cid MD 07/15/24 12:41 [facility] Past Medical History Medical History 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 Carpal tunnel syndrome of left wrist Cervical spondylarthritis Neck pain OCD (obsessive compulsive disorder) Sleep apnea Shoulder arthritis Hearing loss Esophagitis Hernia, hiatal COPD (chronic obstructive pulmonary disease) Family History Family History Father Advanced dementia Mother Stroke Heart problem Surgical History Surgical History History of placement of ear tubes Hx of cholecystectomy History of Problems with Anesthesia: No Social History Social History Housing: Apartment Are you a primary weekend caregiver to a significant other at home: No Do you presently have visiting nurse or other home services: No Alcohol intake: former Year quit: 2019 Patient Tobacco Use Status: Current everyday Tobacco user Tobacco use type: Cigarette Cigarette Packs Per Day: 5 Cigarettes Per Day: 100.0 Years Smoked: 50 e-Cigarette/Vaping Use: Never Used Second Hand Smoke Exposure: No Use of substances other than those prescribed or required for medical reasons: No Have you been hit, kicked, punched, or otherwise hurt by someone within the past year? If so, by whom?: No Are you DNR?: No Advance Directives: No Advance Directives Information Provided: Yes Recently lost weight without trying: No Nutrition Risks: No Nutritional Risk Poor oral hygiene: No service: No Current occupational status: retired and disabled Current occupation: rt handed Current occupational exposures/hazards: No Cognitive needs: No Hearing needs: No Vision needs: No Meds Allergies Allergy/AdvReac Type Severity Reaction Status Date / Time No Known Allergies Allergy Verified 07/15/24 12:06 Home Medications ?Medication ?Instructions ?Recorded ?Confirmed ?Last Taken ?Type Oxygen Home Use #1 ea 11/17/20 06/16/24 Unknown History budesonide-formoterol HFA 160 2 puff inhalation BID 11/17/20 06/16/24 Unknown History mcg-4.5 mcg/actuation aerosol inhaler (Symbicort) tiotropium bromide 1.25 2 puff inhalation DAILY 11/17/20 06/16/24 Unknown History mcg/actuation mist for inhalation (Spiriva Respimat) albuterol sulfate 2.5 mg/3 mL mg inhalation 05/16/22 06/16/24 Unknown History (0.083 %) solution for nebulization Exam Airway Mallampati Class: III TM Dist: >3cm Neck ROM: Full Loose/Missing/Broken Teeth: Yes, Upper and Lower Heart: RRR Lungs: diffused scattered wheezing, improved with cough Assessment and Plan Final Anesthetic Review History of Problems with Anesthesia: No NPO: Yes ASA Class: III Final Preanesthetic Review: Meds/Allgs Chart Reviewed, Consent Obtained/Reviewed and Anes Risks/Benef Reviewed Patient Risk: Intermediate Procedure Risk: Low Anesthetic Plan Anesthetic Plan: GA Disposition: Standard PACU
[2024-07-15] VITALS (9 sets, daily range): BP systolic 108–138; BP diastolic 58–74; PULSE 69–90; RESP 12–18; TEMP 36.1–36.8; O2SAT 90–97; BMI 31.6
--- NOTE | 2024-07-15 09:53 | W.PM.OPN ---
Operative Note Operative Note Date of Service: 07/15/24 Narrative: Operative Note Narrative: Preop diagnosis: 1. Left Cubital tunnel syndrome 2. Left carpal tunnel syndrome Postop diagnosis: Same Procedure: 1. Left Cubital Tunnel Release 2. Left carpal tunnel release Surgeon: Shania Capone MD Distribution Dispatcher: Edwin MARTÍNEZ Anesthesia: General Anesthesia Findings: Thickening and fibrosis about the ulnar nerve at the cubital tunnel with an hourglass deformity of the ulnar nerve Implants: none Tourniquet time: 39 minutes EBL: 5.0 ml Specimen: none Drains: None Complications: None Disposition: Brought to the recovery room in stable condition Plan: Follow-up in 10-14 days for wound check, and suture removal Indications: The patient is 73 years old with left carpal tunnel and left cubital tunnel syndrome . The risks and benefits of operative treatment, including but not limited to risk of damage to blood vessels, nerves, tendons, infection, recurrence, persistent pain or numbness, incomplete resolution of preoperative symptoms, or need for further surgery were discussed with the patient and they wished to proceed with surgery. Procedure: Once consent was obtained patient was brought back to the operating suite and placed in the operating table in a supine position. Perioperative antibiotics and anesthesia was administered by the anesthesia team. The limb was prepped and draped in a standard surgical fashion, and a sterile tourniquet applied to the proximal aspect of the left upper extremity. The limb was elevated exsanguinated with Esmarch bandage and the tourniquet inflated to 250 mm of mercury for a total tourniquet time of 39 minutes. Once assured that we had a good block, a 2.0 cm longitudinal incision was made centered over the left carpal tunnel. The incision was made through the skin to the subcutaneous tissues using a #15 blade. Dissection was made down to the level of the transverse carpal ligament with care being taken to protect the palmar cutaneous nerve. Once the transverse carpal ligament was clearly visualized, a longitudinal incision was made in the transverse carpal ligament 1st using a #15 blade, then using tenotomy scissors under direct visualization. Care was taken to look for and protect the motor branch of the median nerve when seen in this area. Once satisfied with our carpal tunnel release the wound was irrigated with normal saline. A 6 cm gently curved but longitudinally oriented incision was made centered over the cubital tunnel of the left upper extremity. Incision was made through the skin to the subcutaneous tissues using a # 15 Blade. I then dissected down to the level of the medial epicondyle and the cubital tunnel using tenotomy scissors. Care was taken to protect the medial antebrachial cutaneous nerve. The ulnar nerve was identified just posterior to the medial intermuscular septum. The ulnar nerve was released in a proximal to distal direction using tenotomy in iris scissors while directly visualizing and protecting the ulnar nerve. Thickening and fibrosis was appreciated about the ulnar nerve as it passed through the cubital tunnel. The ulnar nerve was assessed as I passed the elbow through full flexion and extension and was found to remain stable within its groove. At this point the tourniquet was deflated and hemostasis obtained with a brief period of local pressure and bipolar electrocautery. The wound was copiously irrigated with normal saline. The subcutaneous layer was closed with 4-0 Vicryl suture, and the skin edges were reapproximated with 5-0 nylon suture. The wound was infiltrated with some 0.25% plain Marcaine for postop pain control and sterile dressings were applied. The patient appears to have tolerated the procedure well and with no complications. All digits were well vascularized at the conclusion of the case.
[2024-07-15] MEDS: Lactated Ringers 1,000 ML 100 ML IVCONT (12:24)
[2024-07-15] MEDS: Albuterol Sulfate (0.083%) 2.5 MG/3 ML VIAL.NEB INHALE (12:35)
--- NOTE | 2024-07-15 13:16 | MHC.SHP ---
Pre-Procedural Eval Section A - 24 Hr Update-Section A only Date of Service: 07/15/24 The patient is an INPATIENT: No Changes since office visit: No Cold of Flu in the past 2 weeks, No New Medical Problems, No Changes in Medication and No Patient answered all questions The patient has been examined within 24 hours of the surgical procedure. The History & Physical has been completed within 30 days and I have reviewed it.: Yes Section B - Complete if H&P > 30 days Chief Complaint: Lesion of ulnar nerve, left upper limb,carpal tunn Allergies: Allergies Allergy/AdvReac Type Severity Reaction Status Date / Time No Known Allergies Allergy Verified 07/15/24 12:06 Plan Diagnosis/Plan: Unchanged I have reviewed the history and physical and performed a pertinent physical examination on my patient. No changes have occurred unless specified. Time Spent With Patient Time: Total time managing care of this patient today ____ minutes.
== END 2024-07-15 16:08 | disposition home or self-care (01) ==
PROVIDERS: PCP Family Medicine; Visit Provider Orthopaedic Surgery
PROC: (CPT 64718; principal; 2024-07-15 13:00)
PROC: (CPT 64721; 2024-07-15 13:00)
DX: G56.02 Carpal tunnel syndrome, left upper limb (principal); G56.22 Lesion of ulnar nerve, left upper limb; R20.0 Anesthesia of skin; R20.2 Paresthesia of skin; M19.019 Primary osteoarthritis, unspecified shoulder; J44.9 Chronic obstructive pulmonary disease, unspecified; G47.30 Sleep apnea, unspecified; H91.90 Unspecified hearing loss, unspecified ear; F33.0 Major depressive disorder, recurrent, mild; F41.9 Anxiety disorder, unspecified; Z79.51 Long term (current) use of inhaled steroids; Z99.81 Dependence on supplemental oxygen; F17.210 Nicotine dependence, cigarettes, uncomplicated; Z98.890 Other specified postprocedural states
CPT/HCPCS: 64721; 64718; J0131; J0690; J2003; J2004; J2704; J2795; J3010

== ENCOUNTER → 2024-07-15 10:55 | Outpatient (BNV) | payer MEDICARE, SELFPAY | PROVIDERS: PCP Family Medicine; Visit Provider Orthopaedic Surgery | DX: G56.02 Carpal tunnel syndrome, left upper limb (principal); G56.22 Lesion of ulnar nerve, left upper limb | CPT/HCPCS: 64718; 64721 ==

== ENCOUNTER 2024-07-27 14:45 | Outpatient (AMB) | payer MEDICARE, SELFPAY ==
--- NOTE | 2024-07-27 14:58 | MHC.OFFVIS ---
Intake Visit Reasons: PO LT cubital/CTR 07/15/24 AR Intake Note: Vijay is a 73 year old right hand dominant male who presents today for a post operative follow up of his left Carpal and Cubital Tunnel Relase 07/15/2024. Patient reports that he is doing well with no concerns. Allergies No Known Allergies Allergy (Verified 07/15/24 12:06) HPI HPI PO LT cubital/CTR 07/15/24 AR: Details: Vijay is a 73 year old right hand dominant male who presents today for a post operative follow up of his left Carpal and Cubital Tunnel Relase 07/15/2024. Patient reports that he is doing well with no concerns. 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 Carpal tunnel syndrome of left wrist Cervical spondylarthritis Neck pain OCD (obsessive compulsive disorder) Sleep apnea Shoulder arthritis Hearing loss Esophagitis Hernia, hiatal COPD (chronic obstructive pulmonary disease) Surgical History History of placement of ear tubes Hx of cholecystectomy Family History Father Advanced dementia Mother Stroke Heart problem Social History Housing: Apartment Are you a primary reproductive healthcare assistant to a significant other at home: No Do you presently have visiting nurse or other home services: No Alcohol intake: former Year quit: 2019 Patient Tobacco Use Status: Current everyday Tobacco user Tobacco use type: Cigarette Cigarette Packs Per Day: 5 Cigarettes Per Day: 100.0 Years Smoked: 50 e-Cigarette/Vaping Use: Never Used Second Hand Smoke Exposure: No service: No Current occupational status: retired and disabled Current occupation: rt handed Current occupational exposures/hazards: No Cognitive needs: No Hearing needs: No Vision needs: No Review of Systems Const All systems reviewed & are unremarkable except as noted in HPI and below Physical Exam Extrem Other: Patient is alert, oriented, and in no acute distress. Neuro: Diminished sensation in the median nerve distribution of the left hand Normal sensation of the ulnar nerve distribution of the left hand Vascular: Cap refill brisk Pain: No tenderness to palpation of either incision site on the left wrist or elbow No pain with range of motion of the left hand, wrist, or elbow ROM: Patient is able to make a closed fist and extend all digits of the left hand fully Patient is able to flex and extend the left elbow fully and without difficulty Skin: Well approximated and well incision sites noted on the volar left wrist and medial left elbow General: No ecchymosis, erythema, or evidence of infection. Psych: Appears grossly normal Affect normal Attitude cooperative Assessment & Plan Assessment & Plan (1) Cubital tunnel syndrome on left: Code(s): G56.22 - Lesion of ulnar nerve, left upper limb Category: Medical (2) Carpal tunnel syndrome of left wrist: Code(s): G56.02 - Carpal tunnel syndrome, left upper limb Category: Medical Plan 1. Left cubital tunnel status post cubital tunnel release 2. Left carpal tunnel syndrome status post carpal tunnel release DOS 07/15/24 Patient appears to be recovering well postoperatively Patient is educated about the typical recovery course At this time, patient is informed that he is recovering very well from his operation, and he will require no acute follow-up with us Patient is also educated that can take up to 9 months for sensation to return after carpal tunnel release, and due to the fact that he was densely numb prior to surgery there is a chance he does not get normal sensation Patient states understanding of this and is amenable to this plan Patient will follow-up as needed with any acute concerns Coding Level of Care Code Global (85494) Diagnoses Cubital tunnel syndrome on left G56.22 Carpal tunnel syndrome of left wrist G56.02
== END 2024-07-27 15:04 | disposition home or self-care (01) ==
PROVIDERS: PCP Family Medicine
DX: G56.22 Lesion of ulnar nerve, left upper limb (principal); G56.02 Carpal tunnel syndrome, left upper limb
CPT/HCPCS: 99024

== ENCOUNTER → 2024-07-27 14:45 | Outpatient (BNVA) | payer MEDICARE, SELFPAY | PROVIDERS: PCP Family Medicine | DX: Z47.89 Encounter for other orthopedic aftercare (principal); Z98.890 Other specified postprocedural states | CPT/HCPCS: 99212 ==

== ENCOUNTER → 2024-08-25 18:05 | Outpatient (BNV) | payer MEDICARE, SELFPAY | PROVIDERS: PCP Family Medicine; Visit Provider Radiology Neuroradiology | DX: M47.812 Spondylosis without myelopathy or radiculopathy, cervical region (principal) | CPT/HCPCS: 72141 ==

== ENCOUNTER 2024-08-25 18:06 | Outpatient (REF) | payer MEDICARE, SELFPAY ==
--- NOTE | ~2024-08-25 | MR_ITS ---
CLINICAL HISTORY: R20.0 - Anesthesia of skin MR cervical spine without gadolinium Comparison: None available Findings: Abnormal signal is likely related to osteoarthritis and sclerosis of the craniocervical junction including the tip of the dens. Multilevel Modic type 1 and Modic type 2 endplate changes are also present. Straightening of the cervical lordosis. Minimal retrolisthesis at C4-C5 and C5-C6. Mild multilevel height losses appear old chronic. Mild abnormal signal of the cervical spinal cord at C4-C5 and C5-C6 are nonspecific and likely reflect myelopathy secondary to spinal stenosis. Subcutaneous edema is noted. No drainable paraspinal fluid collection. C2-C3: Bilateral facet arthropathy. No spinal stenosis. C3-C4: Disc osteophyte complex and bilateral facet arthropathy. Mild spinal canal stenosis. Divrvjqv-zd-njzocc right and severe left foraminal narrowing. C4-C5: Disc osteophyte complex and bilateral facet arthropathy. Right paracentral disc abuts the ventral cord with mild inferior migration of the disc material and mild-moderate spinal canal stenosis. Severe bilateral foraminal narrowing. C5-C6: Disc osteophyte complex and bilateral facet arthropathy with fqqsgmmn-lk-xmqjmy spinal canal stenosis. Severe bilateral foraminal narrowing. C6-C7: Disc osteophyte complex and bilateral facet arthropathy. Mild spinal canal stenosis. Moderate to severe right and mild-moderate left foraminal narrowing. C7-T1: Disc osteophyte complex and bilateral facet arthropathy. Minimal spinal canal stenosis. Mild right and moderate left foraminal narrowing. IMPRESSION: 1. Mild abnormal signal of the cervical spinal cord concerning for myelopathy secondary to spinal stenosis at C4-C5 and C5-C6. 2. Multifocal foraminal narrowing ranging up to severe. 3. Additional degenerative changes including facet arthropathy. This document has been electronically signed by: Jesus Jamison MD on 08/25/2024 19:17:38
== END 2024-08-25 18:07 | disposition home or self-care (01) ==
LOC: HO.MRI 18:06
PROVIDERS: PCP Family Medicine; Visit Provider Psychiatry & Neurology Neurology
DX: R20.0 Anesthesia of skin (principal); M54.2 Cervicalgia; M47.812 Spondylosis without myelopathy or radiculopathy, cervical region
CPT/HCPCS: 72141

== ENCOUNTER 2024-09-27 08:49 | Outpatient (AMB) | payer MEDICARE, SELFPAY ==
--- NOTE | 2024-09-27 09:12 | A.OFFPC_ITS ---
Vital Signs 09/27/24 09:17 Height 5 ft 6 in Weight 190 lb BMI 30.7 BP 120/66 Blood Pressure Location Rt brachial Position Sitting Respiration 14 Pulse 62 Pulse Source Pulse Oximeter Temp 97.8 F Temp Source Oral Pulse Oximetry (%) 98 Oxygen Delivery Method Room Air Intake Visit Reasons: f/u chronic conditions Intake Note: follow up copd and chronic conditions Pallet Rectifier Required: No Allergies No Known Allergies Allergy (Verified 09/27/24 09:13) Medication List - Last Reconciled 09/27/24 by Luc Bergeron MD albuterol sulfate mg inhalation budesonide-formoterol 160-4.5 mcg/actuation (Symbicort) 2 puffs inhalation BID bupropion HCl 75 mg PO DAILY 30 days oxycodone-acetaminophen 5-325 mg 1 tab PO Q6H PRN Oxygen Home Use As directed quetiapine 50 mg (2 x 25 mg) PO DAILY 30 days tiotropium bromide 1.25 mcg/actuation (Spiriva Respimat) 2 puffs inhalation DAILY Tobacco use date assessed: 03/24/24 Dental Screening Dental Screen Date: 03/24/24 HPI f/u chronic conditions HPI Details 74 y/o male [facility] [place] Memory changes and they continue to struggle getting into the memory clinic. They note he has been following up with pulmonology for COPD, pulmonary nodule. He continues to smoke 1 ppd. 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 Carpal tunnel syndrome of left wrist Cervical spondylarthritis Neck pain OCD (obsessive compulsive disorder) Sleep apnea Shoulder arthritis Hearing loss Esophagitis Hernia, hiatal COPD (chronic obstructive pulmonary disease) Surgical History History of placement of ear tubes Hx of cholecystectomy Family History Father Advanced dementia Mother Stroke Heart problem Social History Housing: Apartment Are you a primary day care teacher to a significant other at home: No Do you presently have visiting nurse or other home services: No Alcohol intake: former Year quit: 2019 Patient Tobacco Use Status: Current everyday Tobacco user Tobacco use type: Cigarette Cigarette Packs Per Day: 5 Cigarettes Per Day: 100.0 Years Smoked: 50 e-Cigarette/Vaping Use: Never Used Second Hand Smoke Exposure: No service: No Current occupational status: retired and disabled Current occupation: rt handed Current occupational exposures/hazards: No Cognitive needs: No Hearing needs: No Vision needs: No Questionnaire PHQ-9 Over the last 2 weeks, how often have you been bothered by any of the following problems? 2. Feeling down, depressed, or hopeless: not at all 3. Trouble falling or staying asleep, or sleeping too much: not at all 4. Feeling tired or having little energy: not at all 5. Poor appetite or overeating: not at all 6. Feeling bad about yourself - or that you are a failure or have let yourself or your family down: not at all 7. Trouble concentrating on things, such as reading the newspaper or watching television: not at all 8. Moving or speaking so slowly that other people could have noticed. Or the opposite - being so fidgety or restless that you have been moving around a lot more than usual: not at all 9. Thoughts that you would be better off or of hurting yourself in some way: not at all Source: Developed by Drs. Lui Mckeon, Efrem Rizvi and colleagues, with an educational mae from [employer]. Thrive Questionnaire Date Thrive assessed: 09/27/24 ANETTE-7 AMB Questionnaire ANETTE-7 Date ANETTE - 7 assessed: 03/24/24 Source: Developed by Drs. Lui Mckeon, Efrem Rizvi and colleagues, with an educational mae from [employer]. Review of Systems Const Denies chills, Denies fatigue, Denies fever(s), Denies headache(s) and Denies weakness ENT Denies dizziness and Denies headache(s) Card Denies dyspnea Resp Denies cough, Denies dyspnea, Denies wheezing and Denies other (shortness of christal ath) Musc Denies numbness and Denies tingling Neuro Denies dizziness, Denies headache(s), Denies numbness, Denies tingling and Denies weakness Psych Denies anxiety and Denies depression Endo Denies fatigue Aller/Immun Denies wheezing Physical exam (Primary Care) Vital Signs: Last Vital Signs Temp 97.8 F 09/27/24 09:17 Pulse 62 09/27/24 09:17 Resp 14 09/27/24 09:17 BP 120/66 09/27/24 09:17 Pulse Ox 98 09/27/24 09:17 Oxygen Delivery Method Room Air 09/27/24 09:17 BMI result Body Mass Index 30.7 Tobacco/Smoking Status: Tobacco use Status Tobacco use date assessed 03/24/24 09/27/24 09:15 Patient Tobacco Use Status Current everyday Tobacco 09/27/24 09:15 Tobacco use type Cigarette 09/27/24 09:15 e-Cigarette/Vaping Use Never Used 09/27/24 09:15 Thrive Assessment: Date of Thrive Assessment Date Thrive assessed 09/27/24 09/27/24 09:15 Const General: well developed; No acute distress Nutritional Appearance: well nourished Orientation/consciousness: patient oriented x3 HENMT Head: Yes normocephalic and Yes atraumatic Eyes General: appearance normal, both eyes and all related structures Pupils: Equal, round and reactive pupils present EOM: EOMs intact bilaterally Resp Effort & Inspection: normal respiratory effort Auscultation: clear to auscultation bilaterally Cardio Rate: regular rate Rhythm: regular rhythm Heart sounds: S1 normal heart sound present, S2 normal heart sound present, no gallops, no murmurs and no rubs Neuro General: patient oriented x3 and gait normal Cranial nerves: Yes Equal, round and reactive pupils present Psych Affect: normal affect Coding Level of Care Code Est Pt Level 4 (45535) Diagnoses Memory changes R41.3 COPD (chronic obstructive pulmonary disease) J44.9 Smoker F17.200 GERD (gastroesophageal reflux disease) K21.9 Assessment & Plan Assessment & Plan (1) Memory changes: Code(s): R41.3 - Other amnesia Category: Medical Plan: Ongoing?memory?changes.??Had?referred?him?to?[facility]memory[facility]clinic.??Patient's? daughter?says?they?needed?a renewed?order. Sent?referral?gave?patient?copy?of?referral (2) COPD (chronic obstructive pulmonary disease): Code(s): J44.9 - Chronic obstructive pulmonary disease, unspecified Category: Medical Plan: Longstanding?smoker?with?history?of?COPD Followed?by?Dr. Jc. Patient?says?recent?imaging?showed?nodules?lung ?on?a?PET?scan. Will?request?most?recent?notes We?discussed?smoking?cessation. Offered?to?send?nicotine?patches.??Patient?says?he?will?think?about?it. (3) Smoker: Code(s): F17.200 - Nicotine dependence, unspecified, uncomplicated Category: Social Hx Plan: As above (4) GERD (gastroesophageal reflux disease): Code(s): K21.9 - Gastro-esophageal reflux disease without esophagitis Category: Medical Plan: Sent?script?for?omeprazole Orders: Orders Complete Blood Count Auto Diff Today Z00.00 - Encounter for general adult medical examination without abnormal findings TSH reflex Free T4 Today Z00.00 - Encounter for general adult medical examination without abnormal findings Microalbumin, Random (w Creat) Today I10 - Essential (primary) hypertension Comprehensive [place]. Panel Fast Today Z00.00 - Encounter for general adult medical examination without abnormal findings UA and rflx microscopic Today Z00.00 - Encounter for general adult medical examination without abnormal findings Referrals Neuropsychiatry Referral R41.3 - Other amnesia Medications: New omeprazole 20 mg PO DAILY 30 days 30 caps 3RF
[2024-09-27 09:17] VITALS: BP 120/66; PULSE 62; RESP 14; TEMP 36.6; O2SAT 98; BMI 30.7
--- OUTSIDE RECORDS SUMMARY | 2024-09-27 09:20 | XMS_ITS | Encounter Summary ---
Author Organization [facility] Address [address] [place] [address] Care Team Providers Care Management Advisor Name Role Phone Juan Ingram MD Primary Care Provider [phone] Encounter Details Date Type Department Care Team ([facility] st Contact Info) Description 09/16/2024 Telephone Thoracic Surgery - [place] [address] [phone] Sonia Quezada MD [address] [address] Social History Tobacco Use Types Packs/Day Years Used Date Smoking Tobacco: Every Day Cigarettes Alcohol Use Standard Drinks/Week Comments Yes 0 (1 standard drink = 0.6 oz pur e alcohol) Sex and Gender Information Value Date Recorded Sex Assigned at Not on file Legal Sex Male 8:44 PM EST Gender Identity Not on file Sexual Orientation Not on file documented as of this encounter Progress Notes * Maira Brandt - 09/27/2024 8:50 AM EST Called daughter Nohemi and made appt for this coming Sunday 10/01 @ 3:[address] Quezada. Patient hassigns of Dementia and does not turn his phone on. * Gretta Givens MA - 09/24/2024 3:59 PM EST Called pt LVM requesting call back to reschedule missed appt with Dr. Sonia Quezada. * Maira Brandt - 09/16/2024 3:07 PM EST LVM for patient letting him know that I was calling due to getting a referral form Dr. Jc to be seen in our office for a consult. Please return our call. Did make an appt for Friday at 9:00 if he can make that appt. 09/17/24 LVM again for patient letting him know that a tentative appt has been made for him for Friday at 9:[address] Quezada for a consult. documented in this encounter Plan of Treatment Upcoming Encounters Date Type Department Care Team (Late st Contact Info) Description 10/01/2024 3:00 PM EST Consult Thoracic Surgery - [place] 299 [facility] [address] [place] [phone] Sonia Quezada MD 299 [facility] [address] [id number] documented as of this encounter Visit Diagnoses Not on filedocumented in this encounter Care Teams Management Advisor Relationship Specialty Start Date End Date Juan Ingram MD PCP - General 10/06/06 09/26/24 documented as of this encounter
--- OUTSIDE RECORDS SUMMARY | 2024-09-27 09:20 | XMS_ITS | Clinical Summary ---
Author Organization [facility] Address [address] [place] [address] Phone Care Team Providers Care X Ray Operator Name Role Phone Juan Ingram MD Primary Care Provider [phone] Encounters Date Type Department Care Team Description 09/16/2024 Telephone Thoracic Surgery - [address] [phone] Sonia Quezada MD 08/26/2024 3:09 PM EST - 08/26/2024 11:59 PM EST Hospital Encounter [facility] PET Scan [address] [place] [phone] Solitary pulmonary nodule Discharge Disposition: Home or Self Care from Last 3 Months Medical History Medical History Date Comments Chronic obstructive asthma, unspecified DX:Chronic obstructive asthma, unspecified Lumbago DX:Lumbago Family History Medical History Relation Name Comments Diabetes Father Heart attack Mother Relation Name Status Comments Father Mother Social History Tobacco Use Types Packs/Day Years Used Date Smoking Tobacco: Every Day Cigarettes Alcohol Use Standard Drinks/Week Comments Yes 0 (1 standard drink = 0.6 oz pur e alcohol) Sex and Gender Information Value Date Recorded Sex Assigned at Not on file Legal Sex Male 8:44 PM EST Gender Identity Not on file Sexual Orientation Not on file Obstetrics History Plan of Treatment Upcoming Encounters Date Type Department Care Team ([facility] st Contact Info) Description 10/01/2024 3:00 PM EST Consult Thoracic Surgery - [place] [address] [phone] Sonia Quezada MD [address] [place] [phone] Health Maintenance Due Date Last Done Comments DTaP,Tdap,and Td Vaccines (1 - Tdap) 1971 Zoster Vaccines (1 of 2) 2002 RSV Immunization Patients 60 + Years Old (1 - Risk 60-74 years 1-dose series) 2012 Abdominal Aortic Aneurysm (A AA) Screen 06/29/2022 Cholesterol Screening (Lipid Panel) 06/29/2022 Colorectal Cancer Screening: Colonoscopy 06/29/2022 Depression Screening 06/29/2022 Falls Risk Assessment 06/29/2022 Hepatitis C Screening 06/29/2022 Medicare Annual Wellness Visit 06/29/2022 Social Influencers of Health Screening 06/29/2022 COVID-19 Vaccine ( - 2023-2 5 season) 2024 Influenza Vaccine (#1) 2024 05/30/2022 Pneumococcal Vaccine: 50+ Years Completed HIB Vaccines Aged Out No longer eligi ble based on patient's age to complete this topic HPV Vaccines Aged Out No longer eligi ble based on patient's age to complete this topic Hepatitis A Vaccines Aged Out No long er eligible based on patient's age to complete this topic Hepatitis B Vaccines Aged Out No long er eligible based on patient's age to complete this topic IPV Vaccines Aged Out No longer eligi ble based on patient's age to complete this topic MMR Vaccines Aged Out No longer eligi ble based on patient's age to complete this topic Meningococcal ACWY Vaccine Aged Out N o longer eligible based on patient's age to complete this topic Meningococcal B Vacine Aged Out No lo nger eligible based on patient's age to complete this topic RSV Immunization Patients Un karen 20 months Aged Out No longer eligible b ased on patient's age to complete this topic Varicella Vaccines Aged Out No longer eligible based on patient's age to complete this topic Procedures Procedure Name Priority Date/Time Associated Diagnosis Comments PET CT SKULL TO MID THIGH INITIAL Routine 08/26/2024 5:00 PM EST Solitary pulmonary nodule from Last 3 Months Results * PET CT Skull to Mid Thigh Initial (08/26/2024 5:00 PM EST) Anatomical Region Laterality Modality Body Radiographic Jayda ging 08/27/2024 3:19 AM EST Impressions 08/27/2024 4:19 AM EST 1. ??FDG avid right middle lobe pulmonary nodule suspicious for primary lung malignancy 2. ??FDG avid right hilar, paraesophageal, right paratracheal, AP window lymphadenopathy which may represent metastatic disease 3. ??Nonspecific asymmetric left axillary lymph nodes possibly reactive 4. ??Left hepatic lesion does not demonstrate significant FDG activity in comparison to background Please note: The CT was acquired at a low radiation dose settings. ??The images are of nondiagnostic quality and used solely for purposes of attenuation correction and slice localization for the PET scan. ??If a diagnostic CT study is desired it must be ordered separately. -------- FINAL REPORT -------- Dictated By: Shalini Lomeli Dictated Date: 08/27/2024 03:19 ET Assigned Physician: Shalini Lomeli Reviewed and Electronically Signed By: Shalini Lomeli Signed Date: 08/27/2024 04:19 ET Workstation ID: [id number] Transcribed By: Self Edit Transcribed Date: 08/27/2024 03:19 ET Narrative 08/27/2024 4:19 AM EST INDICATION: Interval development of spiculated nodule in the right middle lobe with borderline enlarged right hilar lymph node and borderline enlarged AP window/pericarinal lymph nodes. TECHNIQUE: FDG PET-CT imaging was performed from the skull bases through the thighs in a single acquisition with data set reconstructed in axial, coronal, and sagittal planes at the computer workstation with fused data from both the PET imaging study and attenuation correction CT. The CT portion of the examination was done strictly for attenuation correction and is not a true diagnostic CT examination. DLP: ??698 mGy-cm Radiopharmaceutical: 11.7 mCi of F-18 FDG IV. Blood glucose: 97 mg/dl. COMPARISON: Outside chest CT July 2024 FINDINGS: HEAD AND NECK: Bilateral nonenlarged cervical lymph nodes without significant FDG activity SUV max 1.7 on the left and 1.5 on the right. THORAX: 2.1 x 1.0 cm FDG avid right middle lobe pulmonary nodule SUV max 4.4. Right paratracheal lymph nodes SUV max 2.8, right hilar SUV max 3.2, paraesophageal SUV max 3.6, AP window/left paratracheal lymph nodes SUV max 2.6, prevascular SUV Max 2.2 (mediastinal blood pool SUV Max 2.8). Nonspecific asymmetric prominent left axillary lymph nodes measuring up to 11 mm in short axis diameter SUV max 2.3 (contralateral right axillary lymph nodes SUV max 1.5); possibly reactive. Emphysematous changes. ??Groundglass opacities in the posterior left upper lobe and posterior right lower lobe SUV max 2.4 which may represent atelectasis and/or pulmonary fibrosis. ??Mild coronary artery calcifications. ABDOMEN/PELVIS: Low-attenuation left hepatic lobe lesion without significant FDG activity in comparison to background SUV max 2.9 (background liver activity SUV max 3.7). No significant FDG avid abdominal or pelvic lymphadenopathy. ??Inguinal lymph nodes without significant FDG activity SUV max 1.7 on the left and 1.6 on the right. Scattered bowel activity, likely physiologic. Hiatal hernia. ??Status post cholecystectomy. ??Mild nodularity of the left adrenal gland. ??Left-sided nephrolithiasis. ??Diverticulosis. MUSCULOSKELETAL: No abnormal FDG activity. Procedure Note Shalini Lomeli MD - 08/27/2024 INDICATION: Interval development of spiculated nodule in the right middlelobe with borderline enlarged right hilar lymph node and borderlineenlarged AP window/pericarinal lymph nodes. TECHNIQUE: FDG PET-CT imaging was performed from the skull bases throughthe thighs in a single acquisition with data set reconstructed in axial,coronal, and sagittal planes at the computer workstation with fused datafrom both the PET imaging study and attenuation correction CT. The CTportion of the examination was done strictly for attenuation correctionand is not a true diagnostic CT examination. DLP: 698 mGy-cm Radiopharmaceutical: 11.7 mCi of F-18 FDG IV. Blood glucose: 97 mg/dl. COMPARISON: Outside chest CT July 2024 FINDINGS: HEAD AND NECK: Bilateral nonenlarged cervical lymph nodes withoutsignificant FDG activity SUV max 1.7 on the left and 1.5 on the right. THORAX: 2.1 x 1.0 cm FDG avid right middle lobe pulmonary nodule SUV max4.4. Right paratracheal lymph nodes SUV max 2.8, right hilar SUV max 3.2,paraesophageal SUV max 3.6, AP window/left paratracheal lymph nodes SUVmax 2.6, prevascular SUV Max 2.2 (mediastinal blood pool SUV Max 2.8). Nonspecific asymmetric prominent left axillary lymph nodes measuring up to11 mm in short axis diameter SUV max 2.3 (contralateral right axillarylymph nodes SUV max 1.5); possibly reactive. Emphysematous changes. Groundglass opacities in the posterior left upperlobe and posterior right lower lobe SUV max 2.4 which may representatelectasis and/or pulmonary fibrosis. Mild coronary arterycalcifications. ABDOMEN/PELVIS: Low-attenuation left hepatic lobe lesion withoutsignificant FDG activity in comparison to background SUV max 2.9(background liver activity SUV max 3.7). No significant FDG avid abdominal or pelvic lymphadenopathy. Inguinallymph nodes without significant FDG activity SUV max 1.7 on the left and1.6 on the right. Scattered bowel activity, likely physiologic. Hiatal hernia. Status post cholecystectomy. Mild nodularity of the leftadrenal gland. Left-sided nephrolithiasis. Diverticulosis. MUSCULOSKELETAL: No abnormal FDG activity. IMPRESSION: 1. FDG avid right middle lobe pulmonary nodule suspicious for primarylung malignancy 2. FDG avid right hilar, paraesophageal, right paratracheal, AP windowlymphadenopathy which may represent metastatic disease 3. Nonspecific asymmetric left axillary lymph nodes possibly reactive 4. Left hepatic lesion does not demonstrate significant FDG activity incomparison to background Please note: The CT was acquired at a low radiation dose settings. The images are ofnondiagnostic quality and used solely for purposes of attenuationcorrection and slice localization for the PET scan. If a diagnostic CTstudy is desired it must be ordered separately. -------- FINAL REPORT -------- Dictated By: Shalini Lomeli Dictated Date: 08/27/2024 03:19 ET Assigned Physician: Shalini Lomeli Reviewed and Electronically Signed By: Shalini Lomeli Signed Date: 08/27/2024 04:19 ET Workstation ID: [id number] Transcribed By: Self Edit Transcribed Date: 08/27/2024 03:19 ET us Dagoberto Jc MD IMG NM PROCEDURES Final Resu lt from Last 3 Months Insurance [employer] MEDICARE Care Teams X Ray Operator Relationship Specialty Start Date End Date Juan Ingram MD [address] [place] [id number] PCP - General Internal Medicine 09/27/24
== END 2024-09-27 10:01 | disposition home or self-care (01) ==
PROVIDERS: PCP Family Medicine; Visit Provider Family Medicine
DX: R41.3 Other amnesia (principal); J44.9 Chronic obstructive pulmonary disease, unspecified; F17.200 Nicotine dependence, unspecified, uncomplicated; K21.9 Gastro-esophageal reflux disease without esophagitis

== ENCOUNTER → 2024-09-27 08:49 | Outpatient (BNVA) | payer MEDICARE, SELFPAY | PROVIDERS: PCP Family Medicine; Visit Provider Family Medicine | DX: R41.3 Other amnesia (principal); J44.9 Chronic obstructive pulmonary disease, unspecified; K21.9 Gastro-esophageal reflux disease without esophagitis; F17.200 Nicotine dependence, unspecified, uncomplicated; Z71.6 Tobacco abuse counseling | CPT/HCPCS: 99212 ==

== ENCOUNTER 2024-10-06 11:23 | Outpatient (REF) | payer MEDICARE, SELFPAY ==
--- OUTSIDE RECORDS SUMMARY | 2024-10-06 13:27 | XMS_ITS | Clinical Summary ---
Author Organization [facility] Address [address] [place] [address] Phone Care Team Providers Care Telephonic Nurse Case Manager Name Role Phone Juan Ingram MD Primary Care Provider [phone] Encounters Date Type Department Care Team Description 09/16/2024 Telephone Thoracic Surgery - [address] [phone] Sonia Quezada MD 08/26/2024 3:09 PM EST - 08/26/2024 11:59 PM EST Hospital Encounter [facility] PET Scan [address] [place] [phone] Solitary pulmonary nodule Discharge Disposition: Home or [...] Upcoming Encounters Date Type Department Care Team ([facility] st Contact Info) Description 10/07/2024 3:30 PM EDT Consult Thoracic Surgery - [place] [address] [phone] Sonia Quezada MD [address] [place] [address] Health Maintenance Due Date Last Done Comments [...] Signed Date: 08/27/2024 04:19 ET Workstation ID: [id number] Transcribed By: Self Edit Transcribed Date: 08/27/2024 [...] Signed Date: 08/27/2024 04:19 ET Workstation ID: [id number] Transcribed By: Self Edit Transcribed Date: 08/27/2024 03:19 ET us Dagoberto Jc MD IMG NM PROCEDURES Final Resu lt from Last 3 Months Insurance [employer] MED[employer]ARE Member Subscriber Plan / Payer (Ef fective 2024-Present) Name:Vijay Abdul Relation to Subscriber:Self Name:Vijay Abdul Payer ID:[id number] (NAIC) Type:Not on file Address: [place] [id number] Care Teams Telephonic Nurse Case Manager Relationship Specialty Start Date End Date Juan Ingram MD [address] [place] [id number] PCP - General Internal Medicine 09/27/24
--- OUTSIDE RECORDS SUMMARY | 2024-10-06 13:27 | XMS_ITS | Encounter Summary ---
Author Organization [facility] Address [address] [place] [address] Care Team Providers Care Facility Rehab Director Name Role Phone Juan Ingram MD Primary Care Provider [phone] Encounter Details Date Type Department Care Team ([facility] st Contact Info) Description 09/16/2024 Telephone Thoracic Surgery - [place] [address] [phone] Sonia Quezada MD [address] [address] Social History Tobacco Use Types Packs/Day Years [...] as of this encounter Progress Notes * Kelley Lux MA - 09/29/2024 10:29 AM EST Reached out to patients jameel Song and asked if they could change the appointment from 3 PM to 11 AM. Nohemi confirmed change will be in for same day 11 AM. * Maira Brandt - 09/27/2024 8:50 AM EST Called jameel Song and made appt for this coming Sunday [...] Care Team (Late st Contact Info) Description 10/07/2024 3:30 PM EDT Consult Thoracic Surgery - [place] [address] [phone] Sonia Quezada MD [address] [address] documented as of this encounter Visit Diagnoses Not on filedocumented in this encounter Care Teams Facility Rehab Director Relationship Specialty Start Date End Date Juan Ingram MD [address] [place] [id number] PCP - General Internal Medicine 09/27/24 documented as of this encounter
[2024-10-06 14:25] LABS: MANUAL DIFF FLAG NO
[2024-10-06 14:36] LABS: Basophils Absolute Auto 0.1 X10*3/uL (0.0-0.2); Basophils Percent Auto 1.2 % (0-2); Eosinophils Absolute Auto 0.5 X10*3/uL (0.0-0.4); Hematocrit 47.4 % (42.0-52.0); Hemoglobin 15.7 g/dl (14.0-18.0); Imm Gran Abs Auto 0.05 X10*3/uL (0.00-0.03); Imm Gran Pct Auto 0.4 % (0.0-0.4); Lymphocytes Absolute Auto 2.1 X10*3/uL (1.2-4.9); Lymphocytes Percent Auto 18.1 % (20-40); Mean Corpuscular HGB Conc 33.1 g/dl (31.0-36.0); Mean Corpuscular Hemoglobin 31.3 pg (27.0-33.0); Mean Corpuscular Volume 94.6 fL (80.0-98.0); Mean Platelet Volume 10.5 fL (9.4-12.4); Monocytes Absolute Auto 1.2 X10*3/uL (0.1-1.2); Monocytes Percent Auto 10.3 % (2-11); Neutrophils Absolute Auto 7.5 x10*3/uL (2.0-8.3); Platelet Count 343 X10*3/uL (160-400); Red Blood Count 5.01 X10*6/uL (4.60-5.80); Red Cell Distribution Width 13.7 % (11.0-16.0); White Blood Count 11.3 X10*3/uL (4.8-10.8)
[2024-10-06 15:21] LABS: TSH reflex Free T4 0.41 uIU/mL (0.32-4.0)
== END 2024-10-06 11:24 | disposition home or self-care (01) ==
LOC: HO.WFDLDS 11:23
PROVIDERS: Visit Provider Family Medicine
DX: Z00.00 Encounter for general adult medical examination without abnormal findings (principal)
CPT/HCPCS: 36415; 84443; 85025

== ENCOUNTER 2024-11-22 13:59 | Outpatient (AMB) | payer MEDICARE, SELFPAY ==
--- NOTE | 2024-11-22 14:06 | A.SPINEOV_ITS ---
Vital Signs 11/22/24 14:14 Height 5 ft 6 in Weight 198 lb BMI 32.0 Intake Visit Reasons: cervical stenosis Intake Note: Mr. Abdul is here today c/o Neck discomfort. Flotation Tank Operator Required: No Allergies No Known Allergies Allergy (Verified 11/22/24 14:14) Physical Exam Vital Signs: BMI result Body Mass Index 32.0 Assessment & Plan Assessment & Plan (1) Stenosis of cervical spine with myelopathy: Code(s): M48.02 - Spinal stenosis, cervical region; G99.2 - Myelopathy in diseases classified elsewhere Category: Medical Plan Dear Dr Bergeron, Thank you for referring Mr Abdul to our office today. This is a 74-year-old gentleman who underwent a left cubital tunnel release, and carpal tunnel release about 4 months ago who unfortunately did not have any relief of his symptoms, in fact afterwards his experience numbness from about the mid biceps down to the hand. Ultimately cervical MRI was done and the patient was found to have severe spinal cord compression at C4-5 and C5-6 amongst other degenerative changes so I saw him urgently. The patient reports that he has had balance issues, specifica lly a number of falls over the last year as well as some weakness in his hands. These things are not rapidly progressive and he does not report that it is necessarily interfering with his day-to-day function of his life. He came in today to be seen for evaluation of surgery. He is due for an upcoming tumor resection in his right middle lobe in 2 days at [facility] for suspected cancer. PMH: He is a lifelong smoker with COPD, I do not have a specific FEV1 2 reference but it sounds like it is advanced staged with oxygen use at night amongst numerous inhalers. As above he is followed by Dr. 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 He is due for a tumor/wedge resection in 2 days. Amongst this he also has GERD, memory loss, pustular psoriasis, hypokalemia, abdominal pain, dysphagia, Morton's esophagus, leukocytosis, depression, sleep apnea. He is forgetful and has a hard time give him he exact details. His daughter was here with him today but was not all that much more helpful. Social hx: Still smoking about a pack a day, does not use any recreational or illicit drugs, does not use any alcohol Medications: The patient could not remember his medications so I am taking them from the N-Sided list Albuterol, Symbicort, bupropion, omeprazole, home oxygen, Seroquel, Spiriva, oxycodone Allergies: No drug allergies Physical exam: He is awake alert oriented to place and year, he is able to stand up out of a chair and walk down the hallway but he is quite unsteady with tandem gait walking and turns. Romberg test negative. Motor examination reveals mild weakness of his hand in his left hip flexor iliopsoas which I would rate as 4/5. Proximal muscle groups of the deltoid biceps and triceps are full strength as well as distal lower extremities. He is hyperreflexic, more so on the left side where there is clonus and Melendez's sign. Imaging review: Cervical MRI done at [facility], there is motion artifact, he has a congenitally narrow spinal canal and multilevel degenerative changes but at C4-5 there is a large disc protrusion to the right, causing severe spinal cord compression, similar findings at C5-6 with cord signal change. Moderate stenosis at C6-7. Impression: 74-year-old male, lifelong smoker, on home oxygen at night, advanced COPD, presents with a worsening numbness of his left arm after undergoing cubital and carpal tunnel release about 4 months ago. Also reports gait imbalance and some hand weakness with physical exam finding concerning for myelopathy. His MRI confirms he has severe spinal cord compression at C4-5 and C5-6. I am going to speak with Dr. Brown, typically this is something we would offer anterior cervical fusion at both levels to treat the stenosis. The patient does have an upcoming procedure in 2 days for wedge resection of a suspected primary lung tumor with Dr. Medina. I am going to speak with Dr. Brown about whether or not this is something that needs to be put on hold until we can address his neck, as the patient will need to be intubated for the procedure obviously and this may require some neck manipulation versus just proceeding as planned, understanding that appropriate precautions can be taken to minimize risk during intubation and the surgery, however the risk not being zero. I explained all this to the patient and his daughter. I will get back to them after I speak with Dr. Brown and then I will contact office to make them aware as well. Thank you for allowing us to care for your patient. The total time spent with this visit with this patient was 45 minutes reviewing history, physical exam, cervical imaging review, and implementation of treatment plan or further diagnostic testing Cory Brown MD,PhD [facility] Coding Level of Care Code New Pt Level 4 (43406) Diagnoses Stenosis of cervical spine with myelopathy M48.02; G99.2
[2024-11-22 14:14] VITALS: BMI 32.0
--- OUTSIDE RECORDS SUMMARY | 2024-11-22 16:46 | XMS_ITS | Encounter Summary ---
Author Organization [facility] Address [address] [place] [address] Care Team Providers Care Portfolio Management Marketing Name Role Phone Luc Bergeron MD Primary Care Provider [phone] Reason for Referral * Imaging (Emergency) - Authorized Specialty Diagnoses / Procedures Referred By Mindy t Referred To Contact Radiology Diagnoses Solitary pulmonary nodule Procedures CT Chest wo Contrast Sonia Quezada MD [address] [address] Phone: tel: fax: [address] [phone] Phone: tel: Referral ID Status Reason Start Date Expiration Date V isits Requested Visits Authorized [id number] Authorized 11/12/2024 11/12/2025 1 1 Reason for Visit * Reason Onset Date Comments Procedure 10/11/2024 PAT , Follow up auth Encounter Details Date Type Department Care Team ([facility] st Contact Info) Description 10/11/2024 Telephone Thoracic Surgery - [place] [address] [phone] Sonia Quezada MD [address] [address] Procedure (PAT , Follow up auth) Social History Tobacco Use Types Packs/Day Years Used Date Smoking Tobacco: Every Day Cigarettes Alcohol Use Standard Drinks/Week Comments Yes 0 (1 standard drink = 0.6 oz pur e alcohol) Interpersonal Safety Answer Date Record ed Physical Abuse 10/13/2024 Verbal Abuse 10/13/2024 Sex and Gender Information Value Date Recorded Sex Assigned at Male 10/11/2024 1:01 PM EDT Legal Sex Male 8:44 PM EST Gender Identity Male 10/11/2024 1:01 PM EDT Sexual Orientation Straight 10/11/2024 1: 01 PM EDT documented as of this encounter Progress Notes * Gretta Givens MA - 11/17/2024 12:19 PM EDT Spoke with Vijay that I was not able to reschedule his Chest CT for today but it will be on the dayof his surgery, 11/24/24 at 7:15 and will need to check-in at the Radiology Lab Manager. [facility] auth - pending. [id number]. * Gretta Givens MA - 11/16/2024 5:17 PM EDT Spoke with patient and gave him the following dates: -PAT 11/17 at 11:30 am, arrive 15 minute early at Patient Registration then go to the 3rd Floor Forklift Mechanic Desk. -Surgery 11/24 at 11:30 am with 10:00 arrival time -Post op 12/08 at 3:30 pm Vijay has a Chest CT scheduled 11/26 which will need to be rescheduled as we need it prior to 11/24 surgery. Patient aware and we will reschedule. * Gretta Rivera - 11/12/2024 1:55 PM EDTAddended by: GRETTA RIVERA on: 11/12/2024 01:55 PM Modules accepted: Orders * Gretta Rivera - 10/11/2024 2:06 PM EDT Patient is aware of message below . * Gretta Rivera - 10/11/2024 10:52 AM EDT Patient is schedule for surgery 10/13/24 at 1:00 pm arrival time 12:00 pm. PAT 10/11/24 at 1:30 PM. Follow up 10/22/24 at 1:[address]-SCAN needs new disc documented in this encounter Plan of Treatment Upcoming Encounters Date Type Department Care Team (Late st Contact Info) Description 11/24/2024 7:15 AM EDT Appointment [facility] CT Scan [address] [place] [phone] 11/24/2024 11:30 AM EDT Hospital Encounter [facility] Main [place] [address] [place] [phone] Sonia Quezada MD [address] [address] 11/24/2024 11:30 AM EDT - 11/24/2024 3:00 PM EDT Surgery [facility] Main OR [address] [place] [phone] Sonia Quezada MD [address] [address] Navigational bronchoscopy w/dye marking, Nicole right middle lobe wedge ? lobectomy [26603 (CPT??) +7 more] 12/08/2024 3:30 PM EDT Office Visit Thoracic Surgery - [place] [address] [phone] Ryan Perez PA [address] [address] Scheduled Orders Name Type Priority Associated Diagnoses Orde r Schedule CT Chest wo Contrast Imaging STAT Solitary pulmonary nodule Expected: 11/12/2024, Expires: 11/12/2025 Scheduled Procedures Name Priority Associated Diagnoses Date/Ti me THORACOSCOPY ROBOT TWO Pulmonary nodule 11/24/2024 11:30 AM EDT documented as of this encounter Visit Diagnoses Diagnosis Solitary pulmonary nodule- Primary Pulmonary nodule- Primary Other diseases of lung, not elsewhere classified Pulmonary nodule Other diseases of lung, not elsewhere classified documented in this encounter Additional Health Concerns Infection Onset Date Last Indicated Resolved Time Tuberculosis Rule-Out 10/13/2024 10/13/20242024 7:04 PM EDT documented as of this encounter Care Teams Portfolio Management Marketing Relationship Specialty Start Date End Date Luc Bergeron MD [address] [place] [phone] PCP - General Family Medicine 10/11/24 documented as of this encounter
--- OUTSIDE RECORDS SUMMARY | 2024-11-22 16:47 | XMS_ITS | Encounter Summary ---
Author Organization [facility] Address [address] [place] [address] Care Team Providers Care Obgyn Specialist Name Role Phone Luc Bergeron MD Primary Care Provider Encounter Details Date Type Department Care Team (Late st Contact Info) Description 11/18/2024 Telephone Thoracic Surgery - [address] [place] [address] Maira Brandt, RN Social History Tobacco Use Types Packs/Day Years Used Date Smoking Tobacco: Every Day Cigarettes Smokeless Tobacco: Never Alcohol Use Standard Drinks/Week Comments Not Currently 0 (1 standard drink = 0.6 oz [...] this encounter Progress Notes * Maira Brandt RN - 11/18/2024 10:03 AM EDT Spoke to daughter Marie and reviewed patients medications, all are correct. He does not need to hold any medications the day of surgery and can take his morning medications with a sip of water. She knows that patient needs to remain NPO after midnight the night before his procedure. He will removeany jewelry and wear comfortable clothing, I rebooked his Pat appt as they missed this yesterday due to some confusion with a Ct-Scan appt that was changed to the day of surgery. Marie is aware thathe is to arrive at 7 am on 11/24 to the Radiology department. Then to go to the 3rd floor to wait tofor surgery. documented in this encounter Plan of Treatment Upcoming Encounters Date Type Department Care Team (Late st Contact Info) Description 11/24/2024 7:15 AM EDT Appointment [facility] CT Scan [address] [place] [address] 11/24/2024 11:30 AM EDT Hospital Encounter [facility] Main OR [address] [place] [address] Sonia Quezada MD [address] [address] 11/24/2024 11:30 AM EDT - 11/24/2024 3:00 PM EDT Surgery [facility] Main OR [address] [place] [address] Sonia Quezada MD [address] [address] Navigational bronchoscopy w/dye marking, Nicole right middle lobe wedge ? lobectomy [69205 (CPT??) +7 more] 12/08/2024 3:30 PM EDT Office Visit Thoracic Surgery - [place] [address] [id number] Ryan Perez PA [address] [address] Scheduled Procedures Name Priority Associated Diagnoses Date/Ti or THORACOSCOPY ROBOT TWO Pulmonary nodule 11/24/2024 11:30 AM EDT documented as of this encounter Visit Diagnoses Not on filedocumented in this encounter Care Teams Obgyn Specialist Relationship Specialty Start Date End Date Luc Bergeron MD [address] [place] [address] PCP - General Family Medicine 10/11/24 documented as of this encounter
--- OUTSIDE RECORDS SUMMARY | 2024-11-22 16:48 | XMS_ITS | Clinical Summary ---
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 9 Active QUEtiapine (SEROquel) 25 mg tablet Take 2 tablets (50 mg total) by mouth. Active omeprazole (PriLOSEC) [address] capsule 1 (one) time each day. 5 Active albuterol 2.5 mg /3 mL (0.083 %) nebulizer solution 3 mL (2.5 mg total). 2 Active albuterol HFA (PROAIR HFA ; PROVENTIL HFA ; VENTOLIN HFA) 90 mcg/actuation inhaler Inhale by mouth. 4 Active tiotropium (Spiriva Respimat) 1.25 mcg/actuation inhalation spray Inhale 2 puffs by mouth 1 (one) time each day. 2 Active tiotropium (SPIRIVA) 18 mcg per inhalation capsule Place 1 capsule (18 mcg total) into inhaler and inhale 1 (one) time each day. 4 04/14/20 25 Discontinued Active Problems Problem Noted Date Diagnosed Date Neuroendocrine neoplasm of lung (CMS/HCC V28) Smoking history 10/13/2024 Pulmonary nodule 10/08/2024 Assessment & Plan (10/08/2024 7:55 AM EDT): 74-year-old man on 2 L of oxygen at night current smoker with a highly suspicious spiculated pulmonary nodule in the right middle lobe and hilar/mediastinal lymphadenopathy. This is a stage III lung cancer until proven otherwise due to the presence of a suspicious nodule with hilar and mediastinal PET scan. Had a long discussion with him about the findings on his CT scan and PET scan described in HPI. We also talked about pulmonary nodules in general how their size, shape, and exchange mechanic time affect her level of suspicion for malignancy. Finally we talked about the diagnosis, staging, and treatment of lung cancer which he and his daughter seem to understand. Plan will be to get pulmonary function testing and we discussed options of continued observation which I would not recommend versus biopsy versus surgical resection. The most reasonable option here is navigational bronchoscopy/EBUS given the ability to biopsy the nodule for diagnosis and stage the mediastinum. This the most efficient way to get a diagnosis and stage with the least amount of invasion to him. The risks, benefits, and alternatives of this procedure were discussed with him in detail which she understood and agreed to proceed. All questions were answered. Mediastinal lymphadenopathy 10/08/2024 COPD (chronic obstructive pu lmonary disease) (CMS/HCC V24, CMS/HCC V28) 10/08/2024 Encounters Date Type Department Care Team Description 11/18/2024 Telephone Thoracic Surgery - [address] [address] Maira Brandt RN 10/22/2024 1:00 PM EDT Office Visit Thoracic Surgery [address] [address] Sonia Quezada MD Neuroendocrine neoplasm of lung ([facility]/HCC V28) (Primary Dx); Pulmonary nodule; Mediastinal lymphadenopathy; Neoplasm 10/13/2024 1:49 PM EDT Anesthesia Event [facility] Main OR [address] [place] [address] Leticia Green MD Hard, Shannon, CRNA 10/13/2024 1:00 PM EDT - 10/13/2024 2:30 PM EDT Surgery [facility] Main OR [address] [place] [phone] Sonia Quezada MD Navigation bronchoscopy/EBUS with biopsies [23048 (CPT??) +1 more] 10/13/2024 11:24 AM EDT - 10/13/2024 5:41 PM EDT Hospital Encounter [facility] Main OR [address] [place] [phone] Sonia Quezada MD Pulmonary nodule; Mediastinal lymphadenopathy Discharge Disposition: Home or Self Care 10/13/2024 7:15 AM EDT - 10/13/2024 11:59 PM EDT Hospital Encounter [facility] Xray [address] [place] [phone] Pain Discharge Disposition: Home or Self Care 10/11/2024 Telephone Thoracic Surgery - [address] [address] Sonia Quezada MD Procedure (PAT , Follow up auth) 10/08/2024 Telephone Lung Screening Program - [address] [address] Kelley Lux [place] 10/07/2024 3:30 PM EDT Consult Thoracic Surgery - [address] [address] Sonia Quezada MD Pulmonary nodule (Primary Dx); Mediastinal lymphadenopathy; Chronic obstructive pulmonary disease, unspecified COPD type (CMS/HCC V24, CMS/HCC V28); Neoplasm 09/16/2024 Telephone Thoracic Surgery [address] [address] Sonia Quezada MD 08/26/2024 3:09 PM EST - 08/26/2024 11:59 PM EST Hospital Encounter [facility] PET Scan [address] [place] [address] Solitary pulmonary nodule Discharge Disposition: Home or Self Care from Last 3 Months Surgical History Surgery Date Site/Laterality Comments OTHER SURGICAL HISTORY LEFT ARM -MAY 2024 COLONOSCOPY UPPER GASTROINTESTINAL ENDOSCOPY BRONCHOSCOPY 10/13/2024 Desean Bronh w/EBUS w/BX Medical History Medical History Date Comments Lumbago DX:Lumbago Pulmonary nodule Pulmonary nodule Sleep apnea COPD (chronic obstructive pu lmonary disease) ([facility] V24, [facility] V28) Pneumonia Shortness of breath Liver disease GERD (gastroesophageal reflux disease) Depression Cancer ([facility] [place] [place] V24, [facility] V28) Family History Medical History Relation Name Comments Diabetes Father Heart attack Mother Relation Name Status Comments Father Mother Social History Tobacco Use Types Packs/Day Years Used Date Smoking Tobacco: Every Day Cigarettes Smokeless Tobacco: Never Tobacco Cessation:Ready to Q uit: Not Asked; Counseling Given: Not Answered Alcohol Use Standard Drinks/Week Comments Not Currently [...] Orientation Straight 10/11/2024 1: 01 PM EDT Obstetrics History Last Filed Vital Signs Vital Sign Reading Time Taken Comments Blood Pressure 107/66 10/22/2024 12:58 PM EDT Pulse 78 10/22/2024 12:58 PM EDT Temperature 36.7 ??C (98.1 ??F) 10/22/2024 12:58 PM E DT Respiratory Rate 18 10/22/2024 12:58 PM EDT Oxygen Saturation 97% 10/22/2024 12:58 PM EDT Inhaled Oxygen Concentration - - Weight 89.8 kg (198 lb) 11/08/2024 2:00 PM EDT Height 167.6 cm (5' 6 ) 11/08/2024 2:00 PM EDT Body Mass Index 31.96 11/08/2024 2:00 PM EDT Plan of Treatment Upcoming Encounters Date Type Department Care Team (Late st Contact Info) Description 11/24/2024 7:15 AM EDT Appointment [facility] CT Scan [address] [place] [address] 11/24/2024 11:30 AM EDT Hospital Encounter [facility] Main OR [address] [place] [phone] Sonia Quezada MD [address] [address] 11/24/2024 11:30 AM EDT - 11/24/2024 3:00 PM EDT Surgery [facility] Main OR [address] [place] [address] Sonia Quezada MD [address] [address] Navigational bronchoscopy w/dye marking, daVinci right middle lobe wedge ? lobectomy [30132 (CPT??) +7 more] 12/08/2024 3:30 PM EDT Office Visit Thoracic Surgery - [place] [address] [phone] Ryan Perez, PA [address] [address] Scheduled Procedures Name Priority Associated Diagnoses Date/Ti me THORACOSCOPY ROBOT TWO Pulmonary nodule 11/24/2024 11:30 AM EDT Health Maintenance Due Date Last Done Comments COVID-19 Vaccine (#1) 1955 DTaP,Tdap,and Td Vaccines (1 - Tdap) 1971 Zoster Vaccines (1 of 2) 1971 RSV Immunization Adult Patie nts (1 - Risk 60-74 years 1-dose series) 2012 Abdominal Aortic Aneurysm (A AA) Screen 06/29/2022 Cholesterol Screening (Lipid Panel) 06/29/2022 Colorectal Cancer Screening: Colonoscopy 06/29/2022 Depression Screening 06/29/2022 Hepatitis C Screening 06/29/2022 Medicare Annual Wellness Visit 06/29/2022 Social Influencers of Health Screening 06/29/2022 Influenza Vaccine (Season Ended) 2025 05/30/20 22 Falls Risk Assessment 10/13/2025 10/13/2024 Pneumococcal Vaccine: 50+ Years Completed HIB Vaccines [...] age to complete this topic Meningococcal B Vaccine Aged Out No l onger eligible based on patient's age to complete this topic RSV Immunization Patients Un karen 20 months Aged Out No longer eligible b ased on patient's age to complete this topic Varicella Vaccines Aged Out No longer eligible based on patient's age to complete this topic Procedures Procedure Name Priority Date/Time Associated Diagnosis Comments CBC WITH AUTO DIFFERENTIAL Routine 11/19/2024 9:50 AM EDT Pulmonary nodule BASIC METABOLIC PANEL Routine 11/19/2024 9:50 AM EDT Pulmonary nodule CBC AND DIFFERENTIAL Routine 11/19/2024 9:50 AM EDT Pulmonary nodule PROTHROMBIN TIME WITH INR Routine 11/19/2024 9:50 AM EDT Pulmonary nodule Neoplasm ACTIVATED PARTIAL THROMBOPLASTIN TIME Routine 11/19/2024 9:50 AM EDT Pulmonary nodule Neoplasm TYPE AND SCREEN Routine 11/19/2024 9:50 AM EDT Pulmonary nodule XR CHEST 1 VIEW STAT 10/13/2024 3:52 PM EDT OXYGEN THERAPY, ADULT Routine 10/13/2024 3:37 PM EDT OXYGEN THERAPY, ADULT Routine 10/13/2024 3:37 PM EDT XR CHEST 1 VIEW Routine 10/13/2024 3:03 PM EDT Pain TISSUE EXAM Routine 10/13/2024 2:55 PM EDT Pulmonary nodule Mediastinal lymphadenopathy ..CONCENTRATION Routine 10/13/2024 2:53 PM EDT Pulmonary nodule Mediastinal lymphadenopathy ACID FAST BACILLI STAIN Routine 10/13/2024 2:53 PM EDT Pulmonary nodule Mediastinal lymphadenopathy CULTURE BRONCHIAL WITH GRAM STAIN Routine 10/13/2024 2:53 PM EDT Pulmonary nodule Mediastinal lymphadenopathy CULTURE, AFB AND SMEAR WITH REFLEX TO IDENTIFICATION AND SUSCEPTIBILITY Routine 10/13/2024 2:53 PM EDT Pulmonary nodule Mediastinal lymphadenopathy CULTURE FUNGAL, OTHER Routine 10/13/2024 2:53 PM EDT Pulmonary nodule Mediastinal lymphadenopathy NON-GYNECOLOGIC CYTOLOGY Routine 10/13/2024 2:50 PM EDT Pulmonary nodule Mediastinal lymphadenopathy FINE NEEDLE ASPIRATION Routine 10/13/2024 2:32 PM EDT Pulmonary nodule Mediastinal lymphadenopathy TH AN ENDOTRACHEAL(NO CHARGE) Routine 10/13/2024 2:06 PM EDT IA BRONCHOSCOPY RIGID/FLEXIBLE W/EBUS >=3 MEDIASTINAL/HILAR LYMPH NODES 10/13/2024 1:49 PM EDT Pulmonary nodule Mediastinal lymphadenopathy Case Notes C-ARM, MOVE TO OR 15 IA BRONCHOSCOPY RIGID/FLEXIBLE COMPUTER ASSISTED IMAGE GUIDED NAVIGATION 10/13/2024 1:49 PM EDT Pulmonary nodule Mediastinal lymphadenopathy Case Notes C-ARM, MOVE TO OR 15 PROCEDURAL ECG Routine 10/11/2024 1:25 PM EDT Pulmonary nodule Mediastinal lymphadenopathy CBC WITH AUTO DIFFERENTIAL Routine 10/11/2024 1:10 PM EDT Pulmonary nodule Mediastinal lymphadenopathy TYPE AND SCREEN Routine 10/11/2024 1:10 PM EDT Pulmonary nodule Mediastinal lymphadenopathy ACTIVATED PARTIAL THROMBOPLASTIN TIME Routine 10/11/2024 1:10 PM EDT Pulmonary nodule Mediastinal lymphadenopathy Neoplasm PROTHROMBIN TIME WITH INR Routine 10/11/2024 1:10 PM EDT Pulmonary nodule Mediastinal lymphadenopathy Neoplasm CBC AND DIFFERENTIAL Routine 10/11/2024 1:10 PM EDT Pulmonary nodule Mediastinal lymphadenopathy BASIC METABOLIC PANEL Routine 10/11/2024 1:10 PM EDT Pulmonary nodule Mediastinal lymphadenopathy PET CT SKULL TO MID THIGH INITIAL Routine 08/26/2024 5:00 PM EST Solitary pulmonary nodule from Last 3 Months Results * (ABNORMAL) CBC auto differential (11/19/2024 9:50 AM EDT) Only the most recent of2 resultswithin the time period is included. WBC 10.5 4.8 - 10.8 K/mcL LAB HEMETOLOGY METHOD 11/19/2024 10:[address] [facility] RBC 5.00 4.50 - 5.50 M/mcL LAB HEMETOLOGY METHOD 11/19/2024 10:[address] [facility] Hemoglobin 15.6 13.5 - 17.5 g/dL LAB HEMETOLOGY METHOD 11/19/2024 10:[address] [facility] Hematocrit 47.4 42.0 - 54.0 % LAB HEMETOLOGY METHOD 11/19/2024 10:[address] [facility] MCV 94.4 79.0 - 98.0 FL LAB HEMETOLOGY METHOD 11/19/2024 10:[address] [facility] MCH 31.1 27.0 - 32.0 pcg LAB HEMETOLOGY METHOD 11/19/2024 10:[address] [facility] MCHC 32.9 32.0 - 37.0 g/dL LAB HEMETOLOGY METHOD 11/19/2024 10:[address] [facility] RDW 13.8 11.0 - 15.0 % LAB HEMETOLOGY METHOD 11/19/2024 10:[address] [facility] Platelets 334 130 - 400 K/mcL LAB HEMETOLOGY METHOD 11/19/2024 10:[address] [facility] MPV 10.4 7.0 - 11.0 FL LAB HEMETOLOGY METHOD 11/19/2024 10:[address] [facility] NRBC 0.0 <1.0 % LAB HEMETOLOGY METHOD 11/19/2024 10:[address] [facility] NRBC Absolute 0.00 <0.10 K/mcL LAB HEMETOLOGY METHOD 11/19/2024 10:[address] [facility] Neutrophils Relative 60.2 % LAB HEMETOLOGY METHOD 11/19/2024 10:[address] [facility] Lymphocytes Relative 23.1 % LAB HEMETOLOGY METHOD 11/19/2024 10:[address] [facility] Monocytes Relative 10.3 % LAB HEMETOLOGY METHOD 11/19/2024 10:[address] [facility] Eosinophils Relative 4.5 % LAB HEMETOLOGY METHOD 11/19/2024 10:[address] [facility] Basophils Relative 1.3 % LAB HEMETOLOGY METHOD 11/19/2024 10:[address] [facility] Immature Granulocytes Relative 0.6 % LAB HEMETOLOGY METHOD 11/19/2024 10:[address] [facility] Neutrophils Absolute 6.34 1.50 - 7.00 K/mcL LAB HEMETOLOGY METHOD 11/19/2024 10:[address] [facility] Lymphocytes Absolute 2.44 1.00 - 5.00 K/mcL LAB HEMETOLOGY METHOD 11/19/2024 10:[address] [facility] Monocytes Absolute 1.09(H) 0.20 - 1.00 K/mcL LAB HEMETOLOGY METHOD 11/19/2024 10:46 AM EDT [facility] Eosinophils Absolute 0.47 0.00 - 0.50 K/[facility] LAB HEMETOLOGY METHOD 11/19/2024 10:46 AM EDT [facility] Basophils Absolute 0.14 0.00 - 0.20 K/[facility] LAB HEMETOLOGY METHOD 11/19/2024 10:46 AM EDT [facility] Immature Granulocytes Absolute 0.06(H) 0.00 - 0.03 K/mcL LAB HEMETOLOGY METHOD 11/19/2024 10:46 AM EDT [facility] Blood Venous blood specimen / Unknown Venipuncture / Unknown 11/19/2024 9:50 AM EDT 11/19/2024 10:10 AM EDT us Sonia Quezada MD LAB BLOOD ORDERABLES Final Resul t Performing Organization Address [facility]/ZIP Co de Phone Number [facility] [address] [place] [address], [place] [phone] * Activated partial thromboplastin time (11/19/2024 9:50 AM EDT) Only the most recent of2 resultswithin the time period is included. aPTT 33.3 24.1 - 39.3 sec LAB COAGULATION METHOD 11/19/2024 10:40 AM EDT [facility] Blood Venous blood specimen / Unknown Venipuncture / Unknown 11/19/2024 9:50 AM EDT 11/19/2024 10:10 AM EDT us Sonia Quezada MD LAB BLOOD ORDERABLES Final Resul t Performing Organization Address [facility]/ZIP Co de Phone Number [facility] [address] [place] [address], [place] [phone] * Prothrombin time with INR (11/19/2024 9:50 AM EDT) Only the most recent of2 resultswithin the time period is included. Pathologist [facility] Protime 12.3 10.6 - 13.9 sec LAB COAGULATION METHOD 11/19/2024 10:40 AM EDT [facility] INR 1.0 LAB COAGULATION METHOD 11/19/2024 10:40 AM EDT [facility] Blood Venous blood specimen / Unknown Venipuncture / Unknown 11/19/2024 9:50 AM EDT 11/19/2024 10:10 AM EDT us Sonia Quezada MD LAB BLOOD ORDERABLES Final Resul t Performing Organization Address [facility] Co de Phone Number [facility] [address] [place] [address], * Type and screen (11/19/2024 9:50 AM EDT) Only the most recent of2 resultswithin the time period is included. [facility] ABO Group A 11/19/2024 11:28 AM EDT [facility] Rh Type Negative 11/19/2024 11:28 AM EDT [facility] Antibody Screen Negative 11/19/2024 11:28 AM EDT [facility] Blood Venous blood specimen / Unknown Venipuncture / Unknown 11/19/2024 9:50 AM EDT 11/19/2024 10:10 AM EDT us Sonia Quezada MD LAB BLOOD BANK TEST ORDERABLES F inal Result Performing Organization Address City/[facility]/ZIP Co de Phone Number [facility] [address] [place] [address], * (ABNORMAL) Basic metabolic panel (11/19/2024 9:50 AM EDT) Only the most recent of2 resultswithin the time period is included. Sodium 137 133 - 145 mmol/L LAB CHEMISTRY METHOD 11/19/2024 11:[address] [facility] Potassium 4.2 3.5 - 5.5 mmol/L LAB CHEMISTRY METHOD 11/19/2024 11:[address] [facility] Chloride 106 96 - 110 mmol/L LAB CHEMISTRY METHOD 11/19/2024 11:[address] [facility] CO2 23 21 - 32 mmol/L LAB CHEMISTRY METHOD 11/19/2024 11:[address] [facility] Anion Gap 8 3 - 11 LAB CHEMISTRY METHOD 11/19/2024 11:[address] [facility] Glucose 91 70 - 100 mg/dL LAB CHEMISTRY METHOD 11/19/2024 11:[address] [facility] BUN 4(L) 5 - 25 mg/dL LAB CHEMISTRY METHOD 11/19/2024 11:[address] [facility] Creatinine 0.91 0.70 - 1.30 mg/dL LAB CHEMISTRY METHOD 11/19/2024 11:[address] [facility] eGFR 90 >=60 mL/min/1. 73m2 LAB CHEMISTRY METHOD 11/19/2024 11:[address] [facility] Comment:Calculation based on the??Chronic Kidney Disease Epidemiology Collaboration (CKD-EPI) equation refit??without adjustment for race. BUN/Creatinine Ratio 4.4 LAB CHEMISTRY METHOD 11/19/2024 11:[address] [facility] Calcium 8.5 8.5 - 10.5 mg/dL LAB CHEMISTRY METHOD 11/19/2024 11:[address] [facility] Blood Venous blood specimen / Unknown Venipuncture / Unknown 11/19/2024 9:50 AM EDT 11/19/2024 10:10 AM EDT Sonia Quezada MD LAB BLOOD ORDERABLES Final Resul t [facility] [address] [place] [address], [place] [phone] * XR Chest 1 View (10/13/2024 3:52 PM EDT) Only the most recent of2 resultswithin the time period is included. Anatomical Region Laterality Modality Body Radiographic Jayda ging 10/13/2024 4:28 PM EDT Impressions 10/13/2024 4:28 PM EDT FINDINGS/IMPRESSION: Radiograph status post recent lung biopsy demonstrating no pneumothorax. -------- FINAL REPORT -------- Dictated By: Savanah Villagran Dictated Date: 10/13/2024 16:28 ET Assigned Physician: Savanah Villagran Reviewed and Electronically Signed By: Savanah Villagran Signed Date: 10/13/2024 16:28 ET Workstation ID: [id number] Transcribed By: Self Edit Transcribed Date: 10/13/2024 16:28 ET Narrative 10/13/2024 4:28 PM EDT XR CHEST 1 VIEW INDICATION: Lung biopsy TECHNIQUE: XR CHEST 1 VIEW COMPARISON: No priors available. Procedure Note Savanah Villagran MD - 10/13/2024 XR CHEST 1 VIEW INDICATION: Lung biopsy TECHNIQUE: XR CHEST 1 VIEW COMPARISON: No priors available. IMPRESSION: FINDINGS/IMPRESSION: Radiograph status post recent lung biopsydemonstrating no pneumothorax. -------- FINAL REPORT -------- Dictated By: Savanah Villagran Dictated Date: 10/13/2024 16:28 ET Assigned Physician: Savanah Villagran Reviewed and Electronically Signed By: Savanah Villagran Signed Date: 10/13/2024 16:28 ET Workstation ID: [id number] Transcribed By: Self Edit Transcribed Date: 10/13/2024 16:28 ET us Sonia Quezada MD IMG XR PROCEDURES Final Result * Tissue exam (10/13/2024 2:55 PM EDT) Final Diagnosis Lung, Right Middle Lobe, Bronchus Biopsy: -ONE FRAGMENT OF BENIGN BRONCHIAL TISSUE WITH SQUAMOUS METAPLASIA -No pulmonary alveolar tissue present for evaluation 10/15/2024 8:35 AM EDT [facility] Gross Description A. Lung, Right Middle Lobe, Bronchus Biopsy: Labeled lung RML . Received in formalin is a 0.1 cm irregular saxena-pink soft tissue fragment which is wrapped in paper and submitted in toto in one cassette, one piece, x 2 is six unstained slides between levels. MARILIN 10/15/2024 8:35 AM EDT [facility] Disclaimer Unless otherwise specified, all tissue is 10% NB formalin fixed and paraffin embedded. 10/15/2024 8:35 AM EDT [facility] Tissue Structure of middle lobe of right lung / Unknown 10/13/2024 2:55 PM EDT 10/13/2024 3:53 PM EDT us Sonia Quezada MD LAB PATHOLOGY ORDERABLES Final R esult [facility] [address] [place] [address], * (ABNORMAL) Culture bronchial with gram stain (10/13/2024 2:53 PM EDT) Bronchial Culture Streptococcus pneumoniae(A) SAADIA 10/17/2024 10:24 AM EDT [facility] Comment: For S. pneumoniae (non-meningitis) isolates that are Penicillin susceptible, results can be used to predict susceptibility to Ampicillin (oral or parenteral), Amoxicillin, Ampicillin-Sulbactam, Amoxicillin-Clavulanic acid, Cefaclor, Cefdinir, Cefepim e, Cefprozil, Ceftaroline, Ceftriaxone, Cefuroxime, Meropenem. ??Erythromycin results can be used to predict Azithromycin, Clarithromycin and Dirithromycin. The organism value for this result has been updated. These results have been appended to the previously preliminary verified report. Gram Stain Result Moderate Polymorphonuclear leukocytes 10/17/2024 10:24 AM EDT [facility] Gram Stain Result No Epithelial cells 10/17/2024 10:24 AM EDT [facility] Gram Stain Result No organisms seen 10/17/2024 10:24 AM EDT [facility] Wash Structure of middle lobe of right lung / Unknown 10/13/2024 2:53 PM EDT 10/13/2024 3:49 PM EDT Narrative Organism Antibiotic Method Susceptibility Streptococcus pneumoniae Cefotaxime (Meningitis) SAADIA 2 ug/ml: Resistant Streptococcus pneumoniae Cefotaxime (Non Meningitis) SAADIA 2 ug/ml: Intermediate Streptococcus pneumoniae Ceftriaxone (Meningitis) SAADIA 2 ug/ml: Resistant Streptococcus pneumoniae Ceftriaxone (Non Meningitis) SAADIA 2 ug/ml: Intermediate Streptococcus pneumoniae Levofloxacin SAADIA 0.5 ug/ml: Susceptible Streptococcus pneumoniae Moxifloxacin SAADIA 0.12 ug/ml: Susceptible Streptococcus pneumoniae Erythromycin SAADIA >=8 ug/ml: Resistant Streptococcus pneumoniae Linezolid SAADIA <=2 ug/ml: Susceptible Streptococcus pneumoniae Tetracycline SAADIA >=16 ug/ml: Resistant Streptococcus pneumoniae Trimethoprim/Sulfame thoxazole SAADIA 160 ug/ml: Resistant Streptococcus pneumoniae Penicillin PO ANTIMICROBIAL SUSCEPTIBILITY, E TEST 2 ug/ml: Resistant Streptococcus pneumoniae Penicillin (non-meningitis) ANTIMICROBIAL SUSCEPTIBILITY, E TEST 2 ug/ml: Susceptible Streptococcus pneumoniae Penicillin (meningitis) ANTIMICROBIAL SUSCEPTIBILITY, E TEST 2 ug/ml: Resistant us Sonia Quezada MD LAB MICROBIOLOGY - GENERAL ORDER VIPUL Final Result [facility] [address] [place] [address], * Concentration (10/13/2024 2:53 PM EDT) AFB Concentration Performed 025 4:05 PM EDT [facility] Wash Structure of middle lobe of right lung / Unknown 10/13/2024 2:53 PM EDT 10/13/2024 3:49 PM EDT Narrative [facility] - 10/14/2024 4:05 PM EDT Performed at: ??01 - [facility] [address] ??[id number] Industrial Waste Treatment Technician: Domi Rodriguez MD, Phone: ??[phone] us Sonia Quezada MD LAB BLOOD ORDERABLES Final Resul t [facility] * Acid fast bacilli stain (10/13/2024 2:53 PM EDT) AFB Stain Result No Acid fast bacilli seen on direct smear (Fuchsin method, 1000x) No Acid Fast Bacilli seen on direct smear 10/13/2024 6:46 PM EDT [facility] Wash Structure of middle lobe of right lung / Unknown 10/13/2024 2:53 PM EDT 10/13/2024 3:49 PM EDT us Sonia Quezada MD LAB MICROBIOLOGY - GENERAL ORDER VIPUL Final Result Performing Organization Address [facility] Co de Phone Number [facility] [address] [place] [address], [place] [phone] * Culture fungal, other (10/13/2024 2:53 PM EDT) Culture, Fungus Negative for Fungus after 4 Weeks 11/08/2024 8:17 AM EDT [facility] Wash Structure of middle lobe of right lung / Unknown 10/13/2024 2:53 PM EDT 10/13/2024 3:49 PM EDT us Sonia Quezada MD LAB MICROBIOLOGY - GENERAL ORDER VIPUL Final Result Performing Organization Address City/[facility]/ZIP Co de Phone Number [facility] [address] [place] [address], [place] [phone] * Non-gynecologic cytology (10/13/2024 2:50 PM EDT) Addendum A) Synaptophysin and chromogranin performed on concurrent right middle lobe fine needle aspirate and not performed on this bronchial brush. See [id number] for results. 5 8:[address] [facility] Addendum electronically signed by Eagle Love MD on 11/02/2024 at 8:53 AM Final Diagnosis A. Lung, Right Middle Lobe, Bronchial Brushing (ThinPrep, cell block): -NEUROENDOCRINE NEOPLASM, MINUTE FRAGMENTS OF Full evaluation is limited by the small amount of tumor present in this bronchial brush Immunohistology supports the morphologic diagnosis of neuroendocrine neoplasm. The neoplastic cells express Keratin (AE 1-3) and patchy INSM1. Ki67 appears to be 10-20%. Negative are: p40, TTF-1, LCA, Synaptophysin and chromogranin. B. Lung, Right Middle Lobe, Bronchial Wash (ThinPrep, cell block): -Negative for malignant cells. C. Lung, Right Middle Lobe, Bronchus Orifice Brushing (ThinPrep, cell block): -ATYPICAL GLANDULAR CELLS, NON-DIAGNOSTIC These atypical glandular cells are different from the neoplastic cells seen in the concurrent right middle lobe brush, part A above and the concurrent right middle lobe fine needle aspirate [id number]. 5 8:[address] [facility] Comment Additional tissue sampling is recommended for full evaluation. 5 8:[address] [facility] Specimen A Adequacy Satisfactory for evaluation 5 8:[address] [facility] Specimen B Adequacy Satisfactory for evaluation 5 8:[address] [facility] Specimen C Adequacy Satisfactory for evaluation 5 8:[address] [facility] Gross Description A. Lung, Right Middle Lobe, Right Middle Lobe Bronchial Brushing: Received in Cytolyt 30 ml of clear fluid; 1 ThinPrep, 1 cell block Cell block in formalin @11;00-total formalin fixation time10 hours. With brush B. Lung, Right Middle Lobe, Right Middle Lobe Bronchial Wash: Received 50 ml of light pink fluid; 1 ThinPrep, 1 Cell block Cell block in formalin @11:00-total formalin fixation time 10 hours. Specimen was split into formalin C. Lung, Right Middle Lobe, Right Middle Lobe Bronchus Orifice Brushing: Received in Cytolyt 30 ml of clear fluid; 1 ThinPrep, 1 cell block Cell block in formalin @11:00-total formalin fixation time 10 hours. 8:54 AM EDT [facility] Disclaimer NOTE: The immunohistochemical tests and in situ hybridization tests were developed and their performance characteristics were determined by [facility]. They have not been cleared or approved by the U.S. Food and Drug Administration. The FDA has determined that such clearance or approval is not necessary. These tests are used for clinical purposes. They should not be regarded as investigational or for research. This laboratory is certified under the Clinical Laboratory Improvement Amendments of 1988 (CLIA) as qualified to perform high complexity clinical laboratory testing. (controls appropriate) Unless otherwise specified, all tissue is 10% NB formalin fixed and paraffin embedded. Technical cytopathology services provided by [facility], at [address] [place] [address], [place] [address] (CLIA # [id number]/Eagle Love MD, Jewel Oliving Machine Operator.) 5 8:54 AM EDT [facility] Brushing Structure of middle lobe of right lung / Unknown 10/13/2024 2:50 PM EDT 10/14/2024 10:24 AM EDT Specimen obtained by lavage (specimen) Structure of middle lobe of right lung / Unknown 10/13/2024 2:52 PM EDT 10/14/2024 10:25 AM EDT Brushing, function (observable entity) Structure of middle lobe of right lung / Unknown 10/13/2024 2:57 PM EDT 10/14/2024 10:27 AM EDT us Sonia Quezada MD LAB CYTOLOGY ORDERABLES Edited R esult - Final [facility] [address] [place] [address], [place] [phone] * Fine needle aspiration (10/13/2024 2:32 PM EDT) Final Diagnosis A. Lung, Right Middle Lobe -fine needle aspiration, (ThinPrep, cell block): -NEUROENDOCRINE NEOPLASM, MINUTE FRAGMENTS OF B. Lymph Node, Right Paratracheal -fine needle aspiration, (ThinPrep, cell block): Negative for malignant cells. C. Lymph Node, Subcarinal -fine needle aspiration, (ThinPrep, cell block): Non-diagnostic. The specimen is processed and evaluated but is non-diagnostic due to insufficient cellularity. D. Lymph Node, 11R -fine needle aspiration, (ThinPrep, cell block): Negative for malignant cells. 4:31 PM EDT [facility] Comment Full evaluation is limited by the small amount of tumor present in this fine needle aspirate. Immunohistology supports the morphologic diagnosis of neuroendocrine neoplasm. The neoplastic cells express Keratin (AE 1-3) and INSM1. Ki67 appears low (1-2%) but evaluation is limited by the small amount of tumor. Negative are: p40, TTF-1, Synaptophysin and chromogranin. Additional tissue sampling is recommended for full evaluation. 5 4:31 PM EDT [facility] Specimen A Adequacy Satisfactory for evaluation 5 4:31 PM EDT [facility] Specimen B Adequacy Satisfactory for evaluation 5 4:31 PM EDT [facility] Specimen C Adequacy Unsatisfactory for Evaluation/Unsuccessf ul attempt 5 4:31 PM EDT [facility] Specimen D Adequacy Satisfactory for evaluation 5 4:31 PM EDT [facility] Gross Description A. Lung, Right Middle Lobe, Right Middle Lobe Lung Nodule: Received in Cytolyt 30 ml of light pink fluid; 1 ThinPrep 1 cell block Cell block in formalin @11:00-total formalin fixation time 10 hours. B. Lymph Node, Right Paratracheal Lymph Node: Received in Cytolyt 30 ml of pink fluid; 1 ThinPrep, 1 cell block Cell block in formalin @11:00-total formalin fixation time 10 hours. C. Lymph Node, Subcarinal Lymph Node: Received in Cytolyt 30 ml of light pink fluid; 1 ThinPrep,1 cell block Cell block in formalin @11:00-total formalin fixation time 10 hours. D. Lymph Node, 11R Lymph Node: Received in Cytolyt 30 ml of light pink fluid; 1 ThinPrep,1 cell block Cell block in formalin @11:00-total formalin fixation time 10 hours. 4:31 PM EDT [facility] Disclaimer NOTE: The immunohistochemical tests and in situ hybridization tests were developed and their performance characteristics were determined by [facility]. They have not been cleared or approved by the U.S. Food and Drug Administration. The FDA has determined that such clearance or approval is not necessary. These tests are used for clinical purposes. They should not be regarded as investigational or for research. This laboratory is certified under the Clinical Laboratory Improvement Amendments of 1988 (CLIA) as qualified to perform high complexity clinical laboratory testing. (controls appropriate) Unless otherwise specified, all tissue is 10% NB formalin fixed and paraffin embedded. Technical cytopathology services provided by [facility], at [address] [place] [address] (CLIA # [id number]/Eagle Love MD, Jewel Oliving Machine Operator.) 5 4:31 PM EDT [facility] Fine Needle Aspirate Structure of middle lobe of right lung / Unknown 10/13/2024 2:32 PM EDT 10/14/2024 10:15 AM EDT Specimen obtained by fine needle aspiration procedure (specimen) Lymph node specimen / Unknown 10/13/2024 3:03 PM EDT 10/14/2024 10:18 AM EDT Specimen obtained by fine needle aspiration procedure (specimen) Lymph node specimen / Unknown 10/13/2024 3:12 PM EDT 10/14/2024 10:20 AM EDT Specimen obtained by fine needle aspiration procedure (specimen) Lymph node specimen / Unknown 10/13/2024 3:19 PM EDT 10/14/2024 10:21 AM EDT us Sonia Quezada MD LAB PATHOLOGY ORDERABLES Final R esult [facility] ([facility]) [facility] [address] [place] [address], [place] [phone] * TH AN ENDOTRACHEAL(NO CHARGE) (10/13/2024 2:06 PM EDT) Lima Hsu CRNA - 10/13/2024 2:06 PM EDT Lima Mcmanus CRNA ? 10/13/2024 ??2:07 PM General Information and Staff Patient location during procedure: OR Anesthesiologist: Leticia Green MD Resident/TECHNICAL SERVICE REPRESENTATIVE: Lima Mcmanus CRNA Performed: resident/SOFIE/CAA Performed by: Lima Mcmanus CRNA Authorized by: Leticai Green MD ?? Intubation Airway not difficult Urgency: elective Final Airway Details Successful airway: ETT Cuffed: yes Successful intubation technique: direct laryngoscopy Facilitating devices/methods: anterior pressure/BURP Endotracheal tube insertion site: oral Blade: Cisco Blade size: #3 ETT size (mm): 8.5 Cormack-Lehane Classification: grade IIb - view of arytenoids or posterior of glottis only Placement verified by: chest auscultation and capnometry Measured from: lips ETT to lips (cm): 21 Number of attempts at approach: 1 Number of other approaches attempted: 0Final airway type: endotracheal airway Indications and Patient Condition Indications for airway management: anesthesia Spontaneous ventilation: present Sedation level: Yes Preoxygenated: yes Soft Tissue Damage: No Dentition Unchanged: Yes Patient position: sniffing Mask difficulty assessment: 3 - difficult mask (inadequate, unstable or two providers) +/- NMBA Start Time: 10/13/2024 2:06 PMStop Time: 10/13/2024 2:06 PM us Leticia Green MD ANESTHESIA ORDERABLES Final Resu lt * ECG 12 lead - Procedural (No Charge) (10/11/2024 1:25 PM EDT) Ventricular Rate ECG 57 BPM GEMUSE Atrial Rate 57 BPM GEMUSE P-R Interval 150 ms GEMUSE QRS Duration 80 ms GEMUSE Q-T Interval 438 ms GEMUSE QTc 426 ms GEMUSE P Wave [place] 66 degrees GEMUSE R [place] 42 degrees GEMUSE T [place] 59 degrees GEMUSE ECG Interpretation Sinus bradycardia with Premature supraventricular complexes Junctional ST depression, probably normal Borderline ECG When compared with ECG of 17-MAY-2024 07:27, No significant changes are noted Confirmed by RASHAD PEREZ ([id number]) on 10/11/2024 3:04:30 PM GEMUSE 10/11/2024 1:25 PM EDT 10/11/2024 3:04 PM EDT us Sonia Quezada MD ECG ORDERABLES Final Result GEMUSE * PET CT Skull to Mid Thigh [...] Signed Date: 08/27/2024 04:19 ET Workstation ID: [id number] Transcribed By: Self Edit Transcribed Date: 08/27/2024 [...] Signed Date: 08/27/2024 04:19 ET Workstation ID: [id number] Transcribed By: Self Edit Transcribed Date: 08/27/2024 03:19 ET Dagoberto Jc MD IMG NM PROCEDURES Final Resu lt from Last 3 Months Insurance [employer] MED[employer]ARE Care 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
== END 2024-11-22 15:00 | disposition home or self-care (01) ==
LOC: HO.HNS 13:59
PROVIDERS: PCP Family Medicine; Referring Provider Psychiatry & Neurology Neurology; Visit Provider Physician Assistant
DX: M48.02 Spinal stenosis, cervical region (principal); G99.2 Myelopathy in diseases classified elsewhere
CPT/HCPCS: 99204

== ENCOUNTER → 2024-11-22 13:59 | Outpatient (BNVA) | payer MEDICARE, SELFPAY | PROVIDERS: PCP Family Medicine; Visit Provider Physician Assistant | DX: M48.02 Spinal stenosis, cervical region (principal); G99.2 Myelopathy in diseases classified elsewhere | CPT/HCPCS: 99202 ==

== ENCOUNTER 2024-12-27 14:32 | Outpatient (AMB) | payer MEDICARE, SELFPAY ==
--- NOTE | 2024-12-27 14:33 | MHC.PC.OV ---
Vital Signs 12/27/24 14:39 Height 5 ft 6 in Weight 179 lb 8 oz BMI 29.0 BP 126/64 Blood Pressure Location Lt brachial Position Sitting Respiration 14 Pulse 65 Pulse Source Pulse Oximeter Temp 98.1 F Temp Source Oral Pulse Oximetry (%) 96 Oxygen Delivery Method Room Air Intake Visit Reasons: f/u chronic conditions - see comments Intake Note: patient has follow up lab review and chronic condition. And patient has no concerns at this time. Allergies No Known Allergies Allergy (Verified 12/27/24 14:37) Medication List - Last Reconciled 12/27/24 by Luc Bergeron MD albuterol sulfate mg inhalation budesonide-formoterol 160-4.5 mcg/actuation (Symbicort) 2 puffs inhalation BID bupropion HCl 75 mg PO DAILY 30 days omeprazole 20 mg PO DAILY 30 days oxycodone-acetaminophen 5-325 mg 1 tab PO Q6H PRN Oxygen Home Use As directed quetiapine 50 mg (2 x 25 mg) PO DAILY 30 days tiotropium bromide 1.25 mcg/actuation (Spiriva Respimat) 2 puffs inhalation DAILY Tobacco use date assessed: 12/27/24 Fall risk assessment: No Falls in past year Dental Screening Dental Screen Date: 12/27/24 Did you have a dental visit in the last 12 months?: Yes Did you have a dental problem in the last 6 months where you did not have access to dental care?: No Was dental information given to patient?: No HPI f/u chronic conditions - see comments HPI Details 74 y/o male presents to f/u chronic conditions. Recent hospital visits - biopsy which had showed lung cancer. Recent middle lobectomy. Had also went to ED 11/30/24 for fall. WBC had been elevated at 29,000. Initial EKG had shown SVT. Pt's heart rate improved after IV metoprolol. Had been following up with [facility] for atrial flutter with rapid vetricular response. Complaints of a tooth abscess. He sees the dentist today. 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 Carpal tunnel syndrome of left wrist Cervical spondylarthritis Neck pain OCD (obsessive compulsive disorder) Sleep apnea Shoulder arthritis Hearing loss Esophagitis Hernia, hiatal COPD (chronic obstructive pulmonary disease) Surgical History (Updated 12/27/24 @ 15:11 by Young Vidal) History of placement of ear tubes Hx of cholecystectomy Family History Father Advanced dementia Mother Stroke Heart problem Social History Housing: Apartment Are you a primary home health caregiver to a significant other at home: No Do you presently have visiting nurse or other home services: No Alcohol intake: former Year quit: 2019 Patient Tobacco Use Status: Current everyday Tobacco user Tobacco use type: Cigarette Cigarette Packs Per Day: 5 Cigarettes Per Day: 100.0 Years Smoked: 50 e-Cigarette/Vaping Use: Never Used Second Hand Smoke Exposure: No service: No Current occupational status: retired and disabled Current occupation: rt handed Current occupational exposures/hazards: No Cognitive needs: No Hearing needs: No Vision needs: No Questionnaire PHQ-9 Over the last 2 weeks, how often have you been bothered by any of the following problems? 1. Little interest or pleasure in doing things: nearly every day 2. Feeling down, depressed, or hopeless: not at all 3. Trouble falling or staying asleep, or sleeping too much: not at all 4. Feeling tired or having little energy: not at all 5. Poor appetite or overeating: not at all 6. Feeling bad about yourself - or that you are a failure or have let yourself or your family down: not at all 7. Trouble concentrating on things, such as reading the newspaper or watching television: not at all 8. Moving or speaking so slowly that other people could have noticed. Or the opposite - being so fidgety or restless that you have been moving around a lot more than usual: not at all 9. Thoughts that you would be better off or of hurting yourself in some way: not at all Total score: 3 Depression Screening Interpretation: Negative Depression Screening Done: Yes 07416 - PHQ-9 Billing: Yes Source: Developed by Drs. Lui Mckeon, Mitra Lux, Efrem Chacko and colleagues, with an educational mae from [employer]. Thrive Questionnaire Date Thrive assessed: 06/02/25 I am a: Patient What is your living situation today?: I have a steady place to live Within the past 12 months, did the food you bought not last and you didn't have the money to get more?: Sometimes True Within the past 12 months, did you worry whether your food would run out before you got money to buy more?: Sometimes True Do you have trouble paying for medicines?: No Do you have trouble getting transportation to medical appointments?: No Do you have trouble paying your heating and electricity bill?: No Do you have trouble taking care of your child, family member or friend?: No Do you have trouble with day-to-day activities such as bathing, preparing meals, shopping, managing finances, etc.?: No Are you currently unemployed and looking for a job?: No Are you interested in more education?: No Please select the resources that you would like help with: None Currently or been in a relationship where the following occur: No concerns reported THRIVE Score: 2 AUDIT C Alcohol Use Questionnaire (AUDIT-C) 1. How often do you have a drink containing alcohol?: Never Total Score: 0 ANETTE-7 AMB Questionnaire ANETTE-7 Date ANETTE - 7 assessed: 12/27/24 Feeling nervous, anxious, or on edge: 0 = Not at all Not being able to stop or control worryin = Not at all Worrying too much about different things: 0 = Not at all Trouble relaxin = Not at all Being so restless that it is hard to sit still: 0 = Not at all Becoming easily annoyed or irritable: 0 = Not at all Feeling afraid as if something awful might happen: 0 = Not at all Total ANETTE-7 score (0-4 normal; 5-9 mild; 10-14 moderate; 15-21 severe): 0 Source: Developed by Drs. Lui Mckeon, Mitra Lux, Efrem Chacko and colleagues, with an educational mae from [employer]. ANETTE-7 Assessment Billing ANETTE-7 Assessment Tool: ANETTE-7 Assessment 22587 Review of Systems Const Denies chills, Denies fatigue, Denies fever(s), Denies headache(s) and Denies weakness ENT Details: tooth/jaw swelling Denies dizziness and Denies headache(s) Card Denies chest pain, Denies lightheadedness, Denies dyspnea and Denies other (Palpitations) Resp Denies cough, Denies dyspnea, Denies wheezing and Denies other ( shortness of breath) Musc Denies numbness and Denies tingling Neuro Denies dizziness, Denies headache(s), Denies numbness, Denies tingling, Denies paresthesias and Denies weakness Psych Denies anxiety and Denies depression Endo Denies fatigue Aller/Immun Denies wheezing Physical exam (Primary Care) Vital Signs: Last Vital Signs Temp 98.1 F 12/27/24 14:39 Pulse 65 12/27/24 14:39 Resp 14 12/27/24 14:39 BP 126/64 12/27/24 14:39 Pulse Ox 96 12/27/24 14:39 Oxygen Delivery Method Room Air 12/27/24 14:39 BMI result Body Mass Index 29.0 Tobacco/Smoking Status: Tobacco use Status Tobacco use date assessed 12/27/24 12/27/24 14:43 Patient Tobacco Use Status Current everyday Tobacco 12/27/24 14:34 Tobacco use type Cigarette 12/27/24 14:34 e-Cigarette/Vaping Use Never Used 12/27/24 14:34 PHQ-9: PHQ-9 Score PHQ-9: Total score 3 12/27/24 15:20 Depression Screening Interpretation: Negative Thrive Assessment: Date of Thrive Assessment Date Thrive assessed 12/27/24 12/27/24 14:34 Currently or been in a relationship where the following occur: No concerns reported Const General: no acute distress and well developed Nutritional Appearance: well nourished Orientation/consciousness: patient oriented x3 HENMT Other: tooth/gum swelling Head: Yes normocephalic and Yes atraumatic Eyes General: appearance normal, both eyes and all related structures Pupils: Equal, round and reactive pupils present EOM: EOMs intact bilaterally Resp Effort & Inspection: normal respiratory effort Auscultation: clear to auscultation bilaterally Cardio Rate: regular rate Rhythm: regular rhythm Heart sounds: S1 normal heart sound present, S2 normal heart sound present, no gallops, no murmurs and no rubs Neuro General: patient oriented x3 and gait normal Cranial nerves: Yes Equal, round and reactive pupils present Psych Affect: normal affect Coding Level of Care Code Est Pt Level 5 (22710) Diagnoses Primary cancer of right middle lobe of lung C34.2 Atrial flutter I48.92 Status post lobectomy of lung Z90.2 Smoker F17.200 Chronic obstructive pulmonary disease, unspecified COPD type J44.9 COPD type: unspecified COPD Additional Codes ANETTE-7 Assessment Billing - ANETTE-7 Assessment Tool: ANETTE-7 Assessment 51010 ([id number]) PHQ-9 - 06965 - PHQ-9 Billing: Yes ([id number]) Assessment & Plan Assessment & Plan (1) Primary cancer of right middle lobe of lung: Code(s): C34.2 - Malignant neoplasm of middle lobe, bronchus or lung Category: Medical (2) Atrial flutter: Code(s): I48.92 - Unspecified atrial flutter Category: Medical (3) Status post lobectomy of lung: Code(s): Z90.2 - Acquired absence of lung [part of] Category: Surgical (4) Smoker: Code(s): F17.200 - Nicotine dependence, unspecified, uncomplicated Category: Social Hx (5) COPD (chronic obstructive pulmonary disease): Code(s): J44.9 - Chronic obstructive pulmonary disease, unspecified Category: Medical Qualifiers: COPD type: unspecified COPD Qualified Code(s): J44.9 - Chronic obstructive pulmonary disease, unspecified Plan Patient?with?history?of?COPD?and?smoking, recently?diagnosed?with?right?middle?lobe?lung?cancer went?to?the?hospital?late?Jessica?and?had?right?middle?lobectomy. Hospital?course?complicated?by?elevated?white?count.??This?was?trending?down?at?discharge and?patient?was?discharged?antibiotics. Patient?had?multiple?falls?at?home and?return?to?hospital?on?11/30/2024. White?count?had?increased. Heart?rhythm?was?atrial?flutter.??He?was?started?on?Eliquis and?Cardizem as?well?as?IV?antibiotics. Subsequently?patient?has?seen [facility]. [facility]?is?concerned?for?paroxysmal?atrial?flutter?with?long?pauses?causing?syncope.??Recommended?implantable?loop?recorder. He?had?been?on?Eliquis?but?patient?says?that?he?does?not?think?he?is?on?this?anymore.??Thinks?he?has?run?out?of?it. EKG: Normal?sinus?rhythm,?normal?axis,?no?hypertrophy,?no?ST-T-wave?changes. Given?that?patient's?supervisory investigative specialist?is?concerned?for?paroxysmal?atrial?flutter,?he?should?continue?anticoagulation.??Will?send?script?for?Eliquis. Follow-up?with?[facility]?as?recommended Recommend?he?also?follow-up?with?his?surgeon Dr Quezada and?follow-up?with?Dr. Jc, pulmonology. Pt also has c/o tooth and jaw pain with possible abscess but has appt w/ dentist today and I recommended he f/u with dentist about this. Medications: New apixaban (Eliquis) 5 mg PO BID 60 tabs 2RF 30 days Discontinued apixaban Discontinued Reason: Doctor's Order 5 mg PO BID 30 days 60 tabs 2RF
[2024-12-27 14:39] VITALS: BP 126/64; PULSE 65; RESP 14; TEMP 36.7; O2SAT 96; BMI 29.0
--- OUTSIDE RECORDS SUMMARY | 2024-12-27 15:49 | XMS_ITS | Clinical Summary ---
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 Impressions 12/24/2024 5:06 AM EDT Direct comparison cannot be made as prior study was FDG PET and current study is NetSpot. 1. ??Postsurgical appearance of the right lung. 2. ??Metabolic activity within mediastinal and hilar lymph nodes. 3. ??Nonspecific asymmetric activity within 7 mm low-attenuation lesion in the left thyroid lobe. ??Correlation with thyroid ultrasound is suggested. Please note: The CT was acquired at a low radiation dose settings. ??The images are of nondiagnostic quality and used solely for purposes of attenuation correction and slice localization for the PET scan. ??If a diagnostic CT study is desired it must be ordered separately. -------- FINAL REPORT -------- Dictated By: Shalini Lomeli Dictated Date: 12/24/2024 04:27 ET Assigned Physician: Shalini Lomeli Reviewed and Electronically Signed By: Shalini Lomeli Signed Date: 12/24/2024 05:06 ET Workstation ID: [id number] Transcribed By: Self Edit Transcribed Date: 12/24/2024 04:27 ET Narrative 12/24/2024 5:06 AM EDT INDICATION: Stage III small cell lung carcinoma. ??History of right middle lobectomy. TECHNIQUE: NETSPOT PET-CT imaging was performed from the head through the thighs in a single acquisition with data set reconstructed in axial, coronal, and sagittal planes at the computer workstation with fused data from both the PET imaging study and attenuation correction CT. The CT portion of the examination was done strictly for attenuation correction and is not a true diagnostic CT examination. DLP: ??796 mGy-cm Radiopharmaceutical: 5.0 mCi of Ga-68 Dotatate IV. Uptake: 66 minutes COMPARISON: Correlation is made with prior FDG PET dated July 2024 FINDINGS: HEAD AND NECK: 7 mm low-attenuation lesion in the left thyroid lobe demonstrating asymmetric activity SUV max 3.1 (contralateral right thyroid lobe SUV max 2.2). ??No abnormal activity within cervical lymph nodes. THORAX: Postsurgical appearance status post right middle lobectomy with small right-sided pleural effusion SUV max 2.5. ??No suspicious metabolically active pulmonary nodule. Mediastinal and hilar activity. ??For example, right paratracheal lymph nodes SUV max 3.4, AP window SUV Max 2.6, subcarinal SUV max 4.9, paraesophageal SUV max 4.2, right hilar SUV max 3.1 and left hilar SUV max 2.4. ??Bilateral axillary lymph nodes SUV max 1.9 on the left and 1.4 on the right. ?? Emphysematous changes within the lungs. ??Subcutaneous emphysema along the right chest wall in keeping with stigmata of prior surgery. ABDOMEN/PELVIS: Nonspecific bowel activity. MUSCULOSKELETAL: No abnormal activity. Procedure Note Shalini Lomeli MD - 12/24/2024 INDICATION: Stage III small cell lung carcinoma. History of right middlelobectomy. TECHNIQUE: NETSPOT PET-CT imaging was performed from the head through thethighs in a single acquisition with data set reconstructed in axial,coronal, and sagittal planes at the computer workstation with fused datafrom both the PET imaging study and attenuation correction CT. The CTportion of the examination was done strictly for attenuation correctionand is not a true diagnostic CT examination. DLP: 796 mGy-cm Radiopharmaceutical: 5.0 mCi of Ga-68 Dotatate IV. Uptake: 66 minutes COMPARISON: Correlation is made with prior FDG PET dated July 2024 FINDINGS: HEAD AND NECK: 7 mm low-attenuation lesion in the left thyroid lobedemonstrating asymmetric activity SUV max 3.1 (contralateral right thyroidlobe SUV max 2.2). No abnormal activity within cervical lymph nodes. THORAX: Postsurgical appearance status post right middle lobectomy withsmall right-sided pleural effusion SUV max 2.5. No suspiciousmetabolically active pulmonary nodule. Mediastinal and hilar activity. For example, right paratracheal lymphnodes SUV max 3.4, AP window SUV Max 2.6, subcarinal SUV max 4.9,paraesophageal SUV max 4.2, right hilar SUV max 3.1 and left hilar SUV max2.4. Bilateral axillary lymph nodes SUV max 1.9 on the left and 1.4 onthe right. Emphysematous changes within the lungs. Subcutaneous emphysema along theright chest wall in keeping with stigmata of prior surgery. ABDOMEN/PELVIS: Nonspecific bowel activity. MUSCULOSKELETAL: No abnormal activity. IMPRESSION: Direct comparison cannot be made as prior study was FDG PET and currentstudy is NetSpot. 1. Postsurgical appearance of the right lung. 2. Metabolic activity within mediastinal and hilar lymph nodes. 3. Nonspecific asymmetric activity within 7 mm low-attenuation lesion inthe left thyroid lobe. Correlation with thyroid ultrasound issuggested. Please note: The CT was acquired at a low radiation dose settings. The images are ofnondiagnostic quality and used solely for purposes of attenuationcorrection and slice localization for the PET scan. If a diagnostic CTstudy is desired it must be ordered separately. -------- FINAL REPORT -------- Dictated By: Shalini Lomeli Dictated Date: 12/24/2024 04:27 ET Assigned Physician: Shalini Lomeli Reviewed and Electronically Signed By: Shalini Lomeli Signed Date: 12/24/2024 05:06 ET Workstation ID: [id number] Transcribed By: Self Edit Transcribed Date: 12/24/2024 04:27 ET Ryan MARTÍNEZ IMG NM PROCEDURES Final Result * XR Chest 2 Views (12/08/2024 3:22 PM EDT) Only the most recent of2 resultswithin the time period is included. Anatomical Region Laterality Modality Body Radiographic Jayda ging 12/08/2024 3:47 PM EDT Impressions 12/08/2024 3:58 PM EDT FINDINGS/IMPRESSION: Small right pleural effusion with adjacent atelectasis, unchanged. ??No pneumothorax. ??Left lung is relatively clear. ??Cardiac silhouette and bones are stable compared to prior. ??Loop recorder overlies the left chest. ??Air within the right supraclavicular region and right chest wall is decreased compared to prior. ?? -------- FINAL REPORT -------- Dictated By: RASHAWN TIJERINA Dictated Date: 12/08/2024 15:47 ET Assigned Physician: RASHAWN TIJERINA Reviewed and Electronically Signed By: RASHAWN TIJERINA Signed Date: 12/08/2024 15:58 ET Workstation ID: [id number] Transcribed By: Self Edit Transcribed Date: 12/08/2024 15:47 ET Narrative 12/08/2024 3:58 PM EDT XR CHEST 2 VIEWS INDICATION: ??Right middle lobectomy, follow-up TECHNIQUE: XR CHEST 2 VIEWS COMPARISON: 12/03/2024 Procedure Note Rashawn Tijerina MD - 12/08/2024 XR CHEST 2 VIEWS INDICATION: Right middle lobectomy, follow-up TECHNIQUE: XR CHEST 2 VIEWS COMPARISON: 12/03/2024 IMPRESSION: FINDINGS/IMPRESSION: Small right pleural effusion with adjacentatelectasis, unchanged. No pneumothorax. Left lung is relatively clear.Cardiac silhouette and bones are stable compared to prior. Loop recorderoverlies the left chest. Air within the right supraclavicular region andright chest wall is decreased compared to prior. -------- FINAL REPORT -------- Dictated By: RASHAWN TIJERINA Dictated Date: 12/08/2024 15:47 ET Assigned Physician: RASHAWN TIJERINA Reviewed and Electronically Signed By: RASHAWN TIJERINA Signed Date: 12/08/2024 15:58 ET Workstation ID: [id number] Transcribed By: Self Edit Transcribed Date: 12/08/2024 15:47 ET Deisy MARTÍNEZ IMG XR PROCEDURES Final Resul t * ECG-Annotated (12/04/2024) us Provider Onbase ECG ORDERABLES Final Result * XR Chest 1 View (12/03/2024 10:09 AM EDT) Only the most recent of11 resultswithin the time period is included. Anatomical Region Laterality Modality Body Radiographic Jayda ging 12/03/2024 10:3 8 AM EDT Impressions 12/03/2024 10:41 AM EDT FINDINGS/IMPRESSION: Lungs are unchanged. ??No pneumothorax. ??Soft tissue air throughout the right greater than left chest and neck has decreased compared to prior. ??Cardiac silhouette is stably enlarged. ??Loop recorder overlies the left chest, new from prior. ??Bones are unchanged. -------- FINAL REPORT -------- Dictated By: RASHAWN TIJERINA Dictated Date: 12/03/2024 10:38 ET Assigned Physician: RASHAWN TIJERINA Reviewed and Electronically Signed By: RASHAWN TIJERINA Signed Date: 12/03/2024 10:41 ET Workstation ID: [id number] Transcribed By: Self Edit Transcribed Date: 12/03/2024 10:38 ET Narrative 12/03/2024 10:41 AM EDT XR CHEST 1 VIEW INDICATION: ??Surgery, pain TECHNIQUE: XR CHEST 1 VIEW COMPARISON: 12/02/2024 Procedure Note Rashawn Tijerina MD - 12/03/2024 XR CHEST 1 VIEW INDICATION: Surgery, pain TECHNIQUE: XR CHEST 1 VIEW COMPARISON: 12/02/2024 IMPRESSION: FINDINGS/IMPRESSION: Lungs are unchanged. No pneumothorax. Soft tissueair throughout the right greater than left chest and neck has decreasedcompared to prior. Cardiac silhouette is stably enlarged. Loop recorderoverlies the left chest, new from prior. Bones are unchanged. -------- FINAL REPORT -------- Dictated By: RASHAWN TIJERINA Dictated Date: 12/03/2024 10:38 ET Assigned Physician: RASHAWN TIJERINA Reviewed and Electronically Signed By: RASHAWN TIJERINA Signed Date: 12/03/2024 10:41 ET Workstation ID: [id number] Transcribed By: Self Edit Transcribed Date: 12/03/2024 10:38 ET us Lashonda Boateng DELIVERY REP IMG XR PROCEDURES Final Res ult * (ABNORMAL) Manual differential (12/03/2024 5:27 AM EDT) Only the most recent of4 resultswithin the time period is included. Neutrophils % 73.0 % LAB HEMETOLOGY METHOD 12/03/2024 7:48 AM EDT [facility] Lymphocytes % 13.0 % LAB HEMETOLOGY METHOD 12/03/2024 7:48 AM [facility] Monocytes % 9.0 % LAB HEMETOLOGY METHOD 12/03/2024 7:48 AM [facility] Eosinophils % 5.0 % LAB HEMETOLOGY METHOD 12/03/2024 7:48 AM [facility] Basophils % 1.0 % LAB HEMETOLOGY METHOD 12/03/2024 7:48 AM [facility] Neutrophils Absolute Manual 13.43(H) 1.50 - 7.00 K/mcL LAB HEMETOLOGY METHOD 12/03/2024 7:48 AM [facility] Lymphocytes Absolute 2.39 1.00 - 5.00 K/mcL LAB HEMETOLOGY METHOD 12/03/2024 7:48 AM [facility] Monocytes Absolute Manual 1.66(H) 0.20 - 1.00 K/mcL LAB HEMETOLOGY METHOD 12/03/2024 7:48 AM [facility] Eosinophils Absolute Manual 0.92(H) 0.00 - 0.50 K/mcL LAB HEMETOLOGY METHOD 12/03/2024 7:48 AM [facility] Basophils Absolute Manual 0.18 0.00 - 0.20 K/mcL LAB HEMETOLOGY METHOD 12/03/2024 7:48 AM [facility] Rbc Morphology Consistent with indices Consistent with indices, Normal for [place] LAB HEMETOLOGY METHOD 12/03/2024 7:48 AM [facility] Comment:RBC: Morphology agre es with CBC Platelet Morphology - WAM See Note(A) Normal LAB HEMETOLOGY METHOD 12/03/2024 7:48 AM [facility] Comment:PLT: Normal Blood Venous blood specimen / Unknown Venipuncture / Unknown 12/03/2024 5:27 AM EDT 12/03/2024 6:59 AM EDT us Tawnya Canela MD LAB BLOOD ORDERABLES Final Resul t [facility] [address] [place] [address], * (ABNORMAL) CBC auto differential (12/03/2024 5:27 AM EDT) Only the most recent of9 resultswithin the time period is included. WBC 18.4(H) 4.8 - 10.8 K/mcL LAB HEMETOLOGY METHOD 12/03/2024 7:48 AM EDT [facility] RBC 4.60 4.50 - 5.50 M/mcL LAB HEMETOLOGY METHOD 12/03/2024 7:48 AM EDT [facility] Hemoglobin 14.3 13.5 - 17.5 g/dL LAB HEMETOLOGY METHOD 12/03/2024 7:48 AM EDT [facility] Hematocrit 42.7 42.0 - 54.0 % LAB HEMETOLOGY METHOD 12/03/2024 7:48 AM EDT [facility] MCV 93.0 79.0 - 98.0 FL LAB HEMETOLOGY METHOD 12/03/2024 7:48 AM EDT [facility] MCH 31.2 27.0 - 32.0 pcg LAB HEMETOLOGY METHOD 12/03/2024 7:48 AM EDT [facility] MCHC 33.5 32.0 - 37.0 g/dL LAB HEMETOLOGY METHOD 12/03/2024 7:48 AM EDT [facility] RDW 14.2 11.0 - 15.0 % LAB HEMETOLOGY METHOD 12/03/2024 7:48 AM EDT [facility] Platelets 413(H) 130 - 400 K/mcL LAB HEMETOLOGY METHOD 12/03/2024 7:48 AM EDT [facility] MPV 10.4 7.0 - 11.0 FL LAB HEMETOLOGY METHOD 12/03/2024 7:48 AM EDT [facility] NRBC 0.0 <1.0 % [facility] 12/03/2024 7:48 AM EDT [facility] NRBC Absolute 0.00 <0.10 K/mcL LAB HEMETOLOGY METHOD 12/03/2024 7:48 AM EDT [facility] Blood Venous blood specimen / Unknown Venipuncture / Unknown 12/03/2024 5:27 AM EDT 12/03/2024 6:59 AM EDT us Tawnya Canela MD LAB BLOOD ORDERABLES Final Resul t [facility] [address] [place] [address], * (ABNORMAL) Basic metabolic panel (12/03/2024 5:27 AM EDT) Only the most recent of8 resultswithin the time period is included. Sodium 135 133 - 145 mmol/L LAB CHEMISTRY METHOD 12/03/2024 7:53 AM [facility] Potassium 3.9 3.5 - 5.5 mmol/L LAB CHEMISTRY METHOD 12/03/2024 7:53 AM [facility] Chloride 105 96 - 110 mmol/L LAB CHEMISTRY METHOD 12/03/2024 7:53 AM [facility] CO2 24 21 - 32 mmol/L LAB CHEMISTRY METHOD 12/03/2024 7:53 AM [facility] Anion Gap 6 3 - 11 LAB CHEMISTRY METHOD 12/03/2024 7:53 AM [facility] Glucose 85 70 - 100 mg/dL LAB CHEMISTRY METHOD 12/03/2024 7:53 AM [facility] BUN 8 5 - 25 mg/dL LAB CHEMISTRY METHOD 12/03/2024 7:53 AM EDT [facility] Creatinine 0.74 0.70 - 1.30 mg/dL LAB CHEMISTRY METHOD 12/03/2024 7:53 AM EDT [facility] eGFR 96 >=60 mL/min/1. 73m2 LAB CHEMISTRY METHOD 12/03/2024 7:53 AM EDT [facility] Comment:Calculation based on the Chronic Kidney Disease Epidemiology Collaboration (CKD-EPI) equation refit without adjustment for race. BUN/Creatinine Ratio 10.8 LAB CHEMISTRY METHOD 12/03/2024 7:53 AM EDT [facility] Calcium 8.2(L) 8.5 - 10.5 mg/dL LAB CHEMISTRY METHOD 12/03/2024 7:53 AM EDT [facility] Blood Venous blood specimen / Unknown Venipuncture / Unknown 12/03/2024 5:27 AM EDT 12/03/2024 6:59 AM EDT Tawnya Canela MD LAB BLOOD ORDERABLES Final Resul t [facility] [address] [place] [address], * Magnesium (12/02/2024 5:39 AM EDT) Only the most recent of6 resultswithin the time period is included. Magnesium 1.9 1.9 - 2.6 mg/dL LAB CHEMISTRY METHOD 12/02/2024 7:23 AM EDT [facility] Blood Venous blood specimen / Unknown Venipuncture / Unknown 12/02/2024 5:39 AM EDT 12/02/2024 6:18 AM EDT Tawnya Canela MD LAB BLOOD ORDERABLES Final Resul t [facility] [address] [place] [address], * (ABNORMAL) TRANSTHORACIC ECHOCARDIOGRAM (TTE) COMPLETE W/ CONTRAST (12/01/2024 1:20 PM EDT) Left Atrium Minor [place] 5.4 cm CV PACS Left Atrium Major [place] 5.5 cm CV PACS LA Area Sys (A2C) 19 cm2 CV PACS LA Area Sys (A4C) 17 cm2 CV PACS LA Volume (BP) 46 mL CV PACS RA Area 18.0 cm2 CV PACS RA 2D Volume 48 mL CV PACS AV Mean Gradient 6 mmHg CV PACS Ao VTI 39.8 cm CV PACS AV Peak Wagner 1.6 m/s CV PACS AV Peak Gradient 10 mmHg CV PACS AV Area Continuity Equation 1.9 cm2 CV PACS AV Area Peak Velocity 1.9 cm2 CV PACS Aortic Sinus Valsalva 3.4 cm CV PACS Ascending Aorta 3.2 cm CV PACS IVC Proximal 2.4 cm CV PACS IVSD 0.8 0.6 - 1.0 cm CV PACS LVIDD 5.6 4.2 - 5.8 cm CV PACS LVIDS 3.9 2.5 - 4.0 cm CV PACS LVOT Diameter 2.3 cm CV PACS LVOT Mean Wagner 0.5 m/s CV PACS LVOT Mean Grad 1 mmHg CV PACS LVOT Peak VTI 18.4 cm CV PACS LVOT Peak Wagner 0.7 m/s CV PACS LVOT Peak Gradient 2 mmHg CV PACS LVPWD 1.0 0.6 - 1.0 cm CV PACS MV E' Tissue Velocity Lateral 3 cm/s CV PACS MV E' Tissue Velocity Septal 8 cm/s CV PACS LVOT Area 4.2 cm2 CV PACS LVOT Stroke Volume 76 mL CV PACS MV Deceleration Ocean 1.8 m/s2 CV PACS E Wave Deceleration Time 363(A) 119 - 242 ms CV PACS MV PHT 106 ms CV PACS MV Peak A Wagner 0.52 m/s CV PACS MV Peak E Wagner 0.64 m/s CV PACS MV Area PHT 2.1 cm2 CV PACS PV Acceleration Time 120 ms CV PACS RV Diastolic Basal Dimension 3.2 2.5 - 4.1 cm CV PACS RV S' 11 cm/s CV PACS TAPSE 22 mm CV PACS E/E' Ratio Septal 8 CV PACS E/E' Ratio Averaged 15 CV PACS LVOT Stroke Index 40 mL/m2 CV PACS Relative Wall Thickness ratio 0.36 CV PACS LVOT:AV VTI Index 0.46 CV PACS FS 30 % CV PACS LV Mass 2D 192 g CV PACS Ascending Aorta Index 1.68 cm/m2 CV PACS LVOT flow 208 mL/s CV PACS RA 2D Volume Index 25 mL/m2 CV PACS CHERIE Index (VTI) 1.01 cm2/m2 CV PACS CHERIE Index (Pk Wagenr) 1.00 cm2/m2 CV PACS LVIDD Index 2.95 cm/m2 CV PACS LVIDS Index 2.05 cm/m2 CV PACS AV Velocity Ratio 0.44 CV PACS E/A Ratio 1.2 CV PACS E/E' Ratio Lateral 21 CV PACS LA Volume Index (BP) 24 mL/m2 CV PACS LV Mass Index 2D 101 g/m2 CV PACS BSA 1.94 m2 CV PACS Est. RA Pressure 8 mmHg CV PACS Anatomical Region Laterality Modality Ultrasound Narrative 12/01/2024 3:24 PM EDT ?Image quality was poor. ??There is moderate global hypokinesis of the left ventricle with an ejection fraction in the range of 40 to 45%. ?RV function is difficult to assess. ??But I believe it is also moderately hypokinetic. ?No obvious valvular abnormalities were noted. ?When compared to May 18, 2024 I believe LV and RV function have deteriorated. ??But that study was also technically difficult and limited. Left Ventricle Left ventricle cavity size is normal. Wall thickness is normal. Systolic function is mildly decreased with an ejection fraction of 40-45%. There are no regional LV wall motion abnormalities. Indeterminate diastolic function. Right Ventricle Right ventricle cavity appears normal. Systolic function is normal. Left Atrium Left atrium cavity size is normal. Right Atrium Right atrium cavity is normal. IVC/SVC RA pressures is estimated to be 8 mmHg (IVC diameter >21 mm and decreases >50% during inspiration). Mitral Valve Mitral valve opens normally. Mitral valve structure is normal. There is trace regurgitation. There is no evidence of mitral valve stenosis. Tricuspid Valve Tricuspid valve structure is normal. Tricuspid regurgitation is inadequate for estimation of right ventricular systolic pressure. There is no evidence of tricuspid valve stenosis. Aortic Valve The aortic valve is trileaflet. There is no regurgitation or stenosis. Pulmonic Valve The pulmonic valve was not well visualized. Ascending Aorta The aorta appears normal in size. Transverse aorta not well visualized. Pericardium Pericardium appears normal. There is no pericardial effusion. Study Details Overall the study quality was technically difficult. Definity contrast was given to enhance imaging. us Tawnya Canela MD CV ECHO PROCEDURES Final Result * Phosphorus (12/01/2024 5:36 AM EDT) Only the most recent of4 resultswithin the time period is included. Phosphorus 3.6 2.5 - 4.5 mg/dL LAB CHEMISTRY METHOD 12/01/2024 6:58 AM EDT [facility] Blood Venous blood specimen / Unknown Venipuncture / Unknown 12/01/2024 5:36 AM EDT 12/01/2024 6:14 AM EDT Kelsey Renner MD LAB BLOOD ORDERABLES Final Res ult [facility] [address] [place] [address], [place] [phone] * XR Hip 2-3 Views Right (11/30/2024 3:15 PM EDT) Anatomical Region Laterality Modality Lower Extremities, Hip Right Radiograp hic Imaging 11/30/2024 3:44 PM EDT Impressions 11/30/2024 3:44 PM EDT FINDINGS/IMPRESSION: Degenerative changes and osteopenia. ??No acute fracture. ??Normal alignment. -------- FINAL REPORT -------- Dictated By: Savanah Villagran Dictated Date: 11/30/2024 15:44 ET Assigned Physician: Savanah Villagran Reviewed and Electronically Signed By: Savanah Villagran Signed Date: 11/30/2024 15:44 ET Workstation ID: [id number] Transcribed By: Self Edit Transcribed Date: 11/30/2024 15:44 ET Narrative 11/30/2024 3:44 PM EDT XR HIP 2-3 VIEWS RIGHT INDICATION: s/p fall, ecchymosis rt hip TECHNIQUE: XR HIP 2-3 VIEWS RIGHT COMPARISON: No priors available. Procedure Note Savanah Villagran MD - 11/30/2024 XR HIP 2-3 VIEWS RIGHT INDICATION: s/p fall, ecchymosis rt hip TECHNIQUE: XR HIP 2-3 VIEWS RIGHT COMPARISON: No priors available. IMPRESSION: FINDINGS/IMPRESSION: Degenerative changes and osteopenia. No acutefracture. Normal alignment. -------- FINAL REPORT -------- Dictated By: Savanah Villagran Dictated Date: 11/30/2024 15:44 ET Assigned Physician: Savanah Villagran Reviewed and Electronically Signed By: Savanah Villagran Signed Date: 11/30/2024 15:44 ET Workstation ID: [id number] Transcribed By: Self Edit Transcribed Date: 11/30/2024 15:44 ET Lashonda Boateng DELIVERY REP IMG XR PROCEDURES Final Res ult * MRSA molecular study (11/30/2024 1:31 PM EDT) [facility] MRSA Screen PCR Not Detected Not Detected LAB MICROBIOLOGY METHOD 11/30/2024 3:11 PM EDT [facility] Swab Both anterior nares / Unknown Non-blood Collection / Unknown 11/30/2024 1:31 PM EDT 11/30/2024 1:52 PM EDT us Edson Gabriel MD LAB MICROBIOLOGY - GENERAL ALTON GARCIA Final Result [facility] [address] [place] [address], [place] [phone] * (ABNORMAL) Urinalysis with reflex microscopic and culture (11/30/2024 1:27 PM EDT) Specific [place] Urine >1.045(H) 1.003 - 1.030 LAB URINALYSIS - AUTOMATED METHOD 11/30/2024 2:05 PM [facility] pH, Urine 5.5 5.0 - 8.0 pH LAB URINALYSIS - AUTOMATED METHOD 11/30/2024 2:05 PM [facility] Leukocytes, Urine Negative Negative LAB URINALYSIS - AUTOMATED METHOD 11/30/2024 2:05 PM [facility] Nitrite, Urine Negative Negative LAB URINALYSIS - AUTOMATED METHOD 11/30/2024 2:05 PM [facility] Protein, Urine Trace <=Trace mg/dL LAB URINALYSIS - AUTOMATED METHOD 11/30/2024 2:05 PM [facility] Glucose, Urine Negative Negative mg/dL LAB URINALYSIS - AUTOMATED METHOD 11/30/2024 2:05 PM [facility] Ketones, Urine Negative Negative mg/dL LAB URINALYSIS - AUTOMATED METHOD 11/30/2024 2:05 PM [facility] Urobilinogen , Urine 1.0 0.2 - 1.0 mg/dL LAB URINALYSIS - AUTOMATED METHOD 11/30/2024 2:05 PM [facility] Bilirubin, Urine Negative Negative LAB URINALYSIS - AUTOMATED METHOD 11/30/2024 2:05 PM [facility] Blood, Urine Negative Negative LAB URINALYSIS - AUTOMATED METHOD 11/30/2024 2:05 PM [facility] Urine Urine specimen obtained by clean catch procedure / Unknown Non-blood Collection / Unknown 11/30/2024 1:27 PM EDT 11/30/2024 1:54 PM EDT us Lashonda Boateng NP LAB URINE ORDERABLES Final Result [facility] [address] [place] [address], [place] [phone] * Bull urine culture tube (11/30/2024 1:27 PM EDT) Extra Tube Hold for add-ons. 11/30/2024 3:01 PM EDT [facility] Comment:Auto resulted. Urine Urine specimen obtained by clean catch procedure / Unknown Non-blood Collection / Unknown 11/30/2024 1:27 PM EDT 11/30/2024 1:54 PM EDT Lashonda Boateng NP LAB URINE ORDERABLES Final Result Performing Organization Address City/[facility]/ZIP Co de Phone Number [facility] [address] [place] [address], [place] [phone] * Blood Culture, Peripheral #2 (11/30/2024 10:30 AM EDT) Only the most recent of2 resultswithin the time period is included. Culture, Blood No growth at 5 days 12/05/2024 12:01 PM EDT [facility] Blood Venous blood specimen / Unknown Venipuncture / Unknown 11/30/2024 10:30 AM EDT 11/30/2024 10:56 AM EDT Edson Gabriel MD LAB MICROBIOLOGY - GENERAL ORDLaura RABJATINDER Final Result [facility] [address] [place] [address], [place] [phone] * Cortisol (11/30/2024 10:30 AM EDT) Cortisol 14.7 mcg/dL LAB CHEMISTRY METHOD 11/30/2024 1:48 PM EDT [facility] Blood Venous blood specimen / Unknown Venipuncture / Unknown 11/30/2024 10:30 AM EDT 11/30/2024 11:22 AM EDT Narrative [facility] - 11/30/2024 1:48 PM EDT CORTISOL REFERENCE RANGE ?? 8 AM SPEC: ??5.0-23.0 mcg/dL ?? 4 PM SPEC: ??3.0-16.0 mcg/dL ?? 8 PM SPEC: ??<5.0 mcg/dL us Kelsey Renner MD LAB BLOOD ORDERABLES Final Res ult [facility] [address] [place] [address], [place] [phone] * (ABNORMAL) Comprehensive metabolic panel (11/30/2024 10:30 AM EDT) Sodium 140 133 - 145 mmol/L LAB CHEMISTRY METHOD 11/30/2024 11:22 AM [facility] Potassium 3.6 3.5 - 5.5 mmol/L LAB CHEMISTRY METHOD 11/30/2024 11:22 AM [facility] Chloride 105 96 - 110 mmol/L LAB CHEMISTRY METHOD 11/30/2024 11:22 AM [facility] CO2 26 21 - 32 mmol/L LAB CHEMISTRY METHOD 11/30/2024 11:22 AM [facility] Anion Gap 9 3 - 11 LAB CHEMISTRY METHOD 11/30/2024 11:22 AM [facility] Glucose 99 70 - 100 mg/dL LAB CHEMISTRY METHOD 11/30/2024 11:22 AM [facility] BUN 20 5 - 25 mg/dL LAB CHEMISTRY METHOD 11/30/2024 11:22 AM [facility] Creatinine 0.76 0.70 - 1.30 mg/dL LAB CHEMISTRY METHOD 11/30/2024 11:22 AM [facility] eGFR 95 >=60 mL/min/1. 73m2 LAB CHEMISTRY METHOD 11/30/2024 11:22 AM EDT [facility] Comment:Calculation based on the??Chronic Kidney Disease Epidemiology Collaboration (CKD-EPI) equation refit??without adjustment for race. BUN/Creatinine Ratio 26.3 LAB CHEMISTRY METHOD 11/30/2024 11:22 AM [facility] Calcium 7.8(L) 8.5 - 10.5 mg/dL LAB CHEMISTRY METHOD 11/30/2024 11:22 AM [facility] AST (SGOT) 14 10 - 42 unit/L LAB CHEMISTRY METHOD 11/30/2024 11:22 AM [facility] ALT (SGPT) 31 10 - 60 unit/L LAB CHEMISTRY METHOD 11/30/2024 11:22 AM [facility] Alkaline Phosphatase 82 42 - 121 unit/L LAB CHEMISTRY METHOD 11/30/2024 11:22 AM [facility] Total Protein 5.0(L) 6.0 - 8.0 g/dL LAB CHEMISTRY METHOD 11/30/2024 11:22 AM [facility] Albumin 2.0(L) 3.2 - 5.0 g/dL LAB CHEMISTRY METHOD 11/30/2024 11:22 AM [facility] Total Bilirubin 0.9 0.0 - 1.4 mg/dL LAB CHEMISTRY METHOD 11/30/2024 11:22 AM [facility] Blood Venous blood specimen / Unknown Venipuncture / Unknown 11/30/2024 10:30 AM EDT 11/30/2024 11:22 AM EDT us Kelsey Renner MD LAB BLOOD ORDERABLES Final Res ult [facility] [address] [place] [address], * SST tube (11/30/2024 9:16 AM EDT) Only the most recent of3 resultswithin the time period is included. Extra Tube Hold for add-ons. 11/30/2024 11:01 AM EDT [facility] Comment:Auto resulted. Blood Venous blood specimen / Unknown 11/30/2024 9:16 AM EDT 11/30/2024 9:38 AM EDT Edson Gabriel MD LAB BLOOD ORDERABLES Final Resu lt Performing Organization Address City/[facility]/ZIP Co de Phone Number [facility] [address] [place] [address], [place] [phone] * Lavender tube (11/30/2024 9:16 AM EDT) Extra Tube Hold for add-ons. 11/30/2024 11:01 AM EDT [facility] Comment:Auto resulted. Blood Venous blood specimen / Unknown 11/30/2024 9:16 AM EDT 11/30/2024 9:38 AM EDT us Edson Gabriel MD LAB BLOOD ORDERABLES Final Resu lt Performing Organization Address [facility] Co de Phone Number [facility] [address] [place] [address], [place] [phone] * Prolactin (11/30/2024 9:16 AM EDT) Prolactin 4.90 2.50 - 17.40 ng/mL LAB CHEMISTRY METHOD 11/30/2024 10:26 AM EDT [facility] Blood Venous blood specimen / Unknown Venipuncture / Unknown 11/30/2024 9:16 AM EDT 11/30/2024 9:37 AM EDT us Lashonda Boateng NP LAB BLOOD ORDERABLES Final Result Performing Organization Address City/[facility]/ZIP Co de Phone Number [facility] [address] [place] [address], [place] [phone] * Lactate (11/30/2024 9:14 AM EDT) Lactate 1.3 0.4 - 2.0 mmol/L LAB CHEMISTRY METHOD 11/30/2024 10:16 AM EDT [facility] Blood Venous blood specimen / Unknown Venipuncture / Unknown 11/30/2024 9:14 AM EDT 11/30/2024 9:34 AM EDT us Edson Gabriel MD LAB BLOOD ORDERABLES Final Resu lt [facility] [address] [place] [address], [place] [phone] * CT Angio Chest wo and/or w Contrast (11/30/2024 8:30 AM EDT) Anatomical Region Laterality Modality Body Computed Tomogra phy 11/30/2024 9:28 AM EDT Impressions 11/30/2024 9:41 AM EDT Impression: 1. No evidence of pulmonary thromboembolism. 2. Postop changes consistent with recent right middle lobectomy, with small right hydropneumothorax. 3. Worsening subcutaneous emphysema since 11/27/24, with small pneumomediastinum now noted. 4. Small patchy pneumonia or atelectasis at the right lung base. 5. Mediastinal and bilateral hilar lymphadenopathy again demonstrated. [place] ([id number]) -------- FINAL REPORT -------- Dictated By: Lavern Vazquez Dictated Date: 11/30/2024 09:28 ET Assigned Physician: Lavern Vazquez Reviewed and Electronically Signed By: Lavern Vazquez Signed Date: 11/30/2024 09:41 ET Workstation ID: [id number] Transcribed By: Self Edit Transcribed Date: 11/30/2024 09:28 ET Narrative 11/30/2024 9:41 AM EDT History: Dyspnea. PE suspected (high clinical probability). Recent right middle lobectomy (11/25/24). Comparison: 11/24/24, portable chest 11/27/24, 11/30/24 TECHNIQUE: Helical volumetric imaging of the thorax was performed in the axial plane during the rapid, uneventful intravenous administration of 90 mL Isovue-370, using the CT angiography protocol tailored for evaluation of the pulmonary arteries. Coronal and sagittal images were reformatted from the original data set and maximum intensity pixel images were reviewed, in multiple planes, on an independent CT workstation. DLP: 664.43 mGy/cm [employer] VCT Iterative reconstruction technique Findings: The central pulmonary arterial tree is well-opacified to the subsegmental level bilaterally. No intraluminal filling defects are seen to suggest pulmonary thromboembolism. No pattern of developing right heart strain is seen. The thoracic aorta is normal in caliber, with mild mural calcification. Extensive subcutaneous emphysema is present bilaterally, most extensive on the right, extending into both upper extremities and the bilateral neck, partially imaged. There is also mild mediastinal emphysema. This process appears to have worsened since 11/27/24. There is a small right hydropneumothorax, in keeping with the recent surgical procedure. The small pleural effusion component layers dependently. A trace pericardial effusion is seen. Right middle lobectomy sequela are noted. The trachea and main bronchi are widely patent. There is diffuse bronchial wall thickening bilaterally, worst in the lower lobes where the central airways are also partially debris-filled. There is moderate to severe emphysematous destruction of the pulmonary parenchyma. Thickened interlobular pulmonary septa are similar to the preop exam compatible with fibrosis. Patchy airspace opacities are present at the base of the right lower lobe, new from the preoperative study, consistent with pneumonia or atelectasis. Mediastinal and bilateral hilar lymphadenopathy is noted. Bulky right hilar nodes measure up to approximately 19 mm short axis. Left hilar nodes measure up to 12 mm. Enlarged mediastinal nodes seen in the right paratracheal/precarinal, aortopulmonary window, subcarinal and distal paraesophageal spaces are without significant change, measuring approximately 16 mm short axis. A small portion of the upper abdomen included on the lowest images through the thorax is remarkable for cholecystectomy sequela. Mild nodularity of the adrenal glands is unchanged, most likely related to small adenomas. Diverticulosis of the partially imaged colon is seen. No significant osseous abnormality is noted. Procedure Note Lavern Vazquez MD - 11/30/2024 History: Dyspnea. PE suspected (high clinical probability). Recent rightmiddle lobectomy (11/25/24). Comparison: 11/24/24, portable chest 11/27/24, 11/30/24 TECHNIQUE: Helical volumetric imaging of the thorax was performed in theaxial plane during the rapid, uneventful intravenous administration of 90mL Isovue-370, using the CT angiography protocol tailored for evaluationof the pulmonary arteries. Coronal and sagittal images were reformattedfrom the original data set and maximum intensity pixel images werereviewed, in multiple planes, on an independent CT workstation. DLP: 664.43 mGy/cm [employer] VCT Iterative reconstruction technique Findings: The central pulmonary arterial tree is well-opacified to the subsegmentallevel bilaterally. No intraluminal filling defects are seen to suggestpulmonary thromboembolism. No pattern of developing right heart strain isseen. The thoracic aorta is normal in caliber, with mild muralcalcification. Extensive subcutaneous emphysema is present bilaterally, most extensive onthe right, extending into both upper extremities and the bilateral neck,partially imaged. There is also mild mediastinal emphysema. This processappears to have worsened since 11/27/24. There is a small right hydropneumothorax, in keeping with the recentsurgical procedure. The small pleural effusion component layersdependently. A trace pericardial effusion is seen. Right middle lobectomy sequela are noted. The trachea and main bronchi arewidely patent. There is diffuse bronchial wall thickening bilaterally,worst in the lower lobes where the central airways are also partiallydebris-filled. There is moderate to severe emphysematous destruction ofthe pulmonary parenchyma. Thickened interlobular pulmonary septa aresimilar to the preop exam compatible with fibrosis. Patchy airspaceopacities are present at the base of the right lower lobe, new from thepreoperative study, consistent with pneumonia or atelectasis. Mediastinal and bilateral hilar lymphadenopathy is noted. Bulky righthilar nodes measure up to approximately 19 mm short axis. Left hilar nodesmeasure up to 12 mm. Enlarged mediastinal nodes seen in the rightparatracheal/precarinal, aortopulmonary window, subcarinal and distalparaesophageal spaces are without significant change, measuringapproximately 16 mm short axis. A small portion of the upper abdomen included on the lowest images throughthe thorax is remarkable for cholecystectomy sequela. Mild nodularity ofthe adrenal glands is unchanged, most likely related to small adenomas.Diverticulosis of the partially imaged colon is seen. No significant osseous abnormality is noted. IMPRESSION: Impression: 1. No evidence of pulmonary thromboembolism. 2. Postop changes consistent with recent right middle lobectomy, withsmall right hydropneumothorax. 3. Worsening subcutaneous emphysema since 11/27/24, with smallpneumomediastinum now noted. 4. Small patchy pneumonia or atelectasis at the right lung base. 5. Mediastinal and bilateral hilar lymphadenopathy again demonstrated. [place]ad [place] ([id number]) -------- FINAL REPORT -------- Dictated By: Lavern Vazquez Dictated Date: 11/30/2024 09:28 ET Assigned Physician: Lavern Vazquez Reviewed and Electronically Signed By: Lavern Vazquez Signed Date: 11/30/2024 09:41 ET Workstation ID: [id number] Transcribed By: Self Edit Transcribed Date: 11/30/2024 09:28 ET us Scot Pratibha Gabriel MD IMG CT PROCEDURES Final Result * Troponin I high sensitivity (11/30/2024 4:33 AM EDT) Only the most recent of2 resultswithin the time period is included. High Sensitivity Troponin I 22 <=79 ng/L LAB CHEMISTRY METHOD 11/30/2024 5:22 AM EDT [facility] Blood Venous blood specimen / Unknown Venipuncture / Unknown 11/30/2024 4:33 AM EDT 11/30/2024 4:57 AM EDT Narrative [facility] - 11/30/2024 5:22 AM EDT High levels of biotin in samples may falsely decrease hsTroponin values. ??Use caution when interpreting hsTroponin results in patients taking biotin who exhibit renal impairment (eGFR <60) or in patients taking more than 20 mg/day of biotin. us Edson Gabriel MD LAB BLOOD ORDERABLES Final Resu lt Performing Organization Address [facility]/ZIP Co de Phone Number [facility] [address] [place] [address], [place] [phone] * (ABNORMAL) Procalcitonin (11/30/2024 2:53 AM EDT) Procalcitonin 1.31(H) <=0.16 ng/mL LAB CHEMISTRY METHOD 11/30/2024 10:15 AM EDT [facility] Blood Venous blood specimen / Unknown Venipuncture / Unknown 11/30/2024 2:53 AM EDT 11/30/2024 4:08 AM EDT Narrative [facility] - 11/30/2024 10:15 AM EDT Procalcitonin > 2.00 ng/ml: Procalcitonin Levels above 2.00 ng/ml, on the first day of ICU admission represent a high risk for progression to severe sepsis and/or septic shock. Procalcitonin < 0.50 ng/ml: Procalcitonin levels below 0.50 ng/ml on the first day of ICU admission represent a low risk for progression to severe sepsis and/or septic shock. Concentrations <0.5 ng/mL do not exclude an infection, on account of local ized infections (without systemic signs) which can be associated with such low concentrations, or a systemic infection in its initial stages (<6 hours). Furthermore, increased procalcitonin can occur without infection. PCT concentrations between 0.5 and 2.0 ng/mL should be interpreted taking into account the patient's history. It is recommended to retest PCT within 6-24 hours if any concentrations <2.0 ng/mL are obtained. us Kelsey Renner MD LAB BLOOD ORDERABLES Final Res ult Performing Organization Address [facility]/ZIP Co de Phone Number [facility] [address] [place] [address], [place] [phone] * (ABNORMAL) B-type natriuretic peptide (11/30/2024 2:53 AM EDT) BNP 196(H) <=100 pcg/mL LAB CHEMISTRY METHOD 11/30/2024 4:44 AM EDT [facility] Blood Venous blood specimen / Unknown Venipuncture / Unknown 11/30/2024 2:53 AM EDT 11/30/2024 4:08 AM EDT us Edson Gabriel MD LAB BLOOD ORDERABLES Final Resu lt Performing Organization Address [facility]/ZIP Co de Phone Number [facility] [address] [place] [address], [place] [phone] * (ABNORMAL) POCT Glucose, blood (11/30/2024 2:48 AM EDT) Glucose POCT 132(H) 70 - 100 mg/dL 11/30/2024 2:49 AM EDT [facility] Blood Capillary blood specimen / Unknown 11/30/2024 2:48 AM EDT 11/30/2024 2:50 AM EDT us Edson Gabriel MD LAB POINT OF CARE TE ST DOCKED DEVICE UNSOLICITED RESULTS Final Result Performing Organization Address [facility]/ZIP Co de Phone Number [facility] [address] [place] [address], [place] [phone] * [place] CRITICAL CARE 30-74 MINUTES (11/30/2024 2:25 AM EDT) Narrative Edson Gabriel MD - 11/30/2024 2:25 AM EDT Edson Gabriel MD ? 11/30/2024 ??8:08 AM Critical Care Performed by: Edson Gabriel MD Authorized by: Edson Gabriel MD ?? Critical care provider statement: ??Critical care time (minutes): ??60 ??Total face to face critical care time (minutes): ??30 ??Critical care was necessary to treat or prevent imminent or life-threatening deterioration of the following conditions: ??Sepsis, shock and circulatory failure ??Critical care was time spent personally by me on the following activities: ??Ordering and performing treatments and interventions, ordering and review of laboratory studies, ordering and review of radiographic studies, pulse oximetry, re-evaluation of patient's condition, review of old charts, examination of patient, evaluation of patient's response to treatment, discussions with consultants and development of treatment plan with patient or surrogate ??Face to face critical care was time spent personally by me on the following activities: ??Re-evaluation of patient's condition, examination of patient, obtaining history from patient or surrogate and development of treatment plan with patient or surrogate ??I assumed direction of critical care for this patient from another provider in my specialty: no ?Care discussed with: admitting provider ?? us Edson Gabriel MD IN CLINIC/BEDSIDE ORDERABLES Fi nal Result * (ABNORMAL) RBC morphology review (11/26/2024 6:50 AM EDT) Pathologist [facility] Rbc Morphology Consistent with indices Consistent with indices, Normal for LAB HEMETOLOGY METHOD 11/26/2024 7:56 AM EDT [facility] Platelet Morphology - WAM See Note(A) Normal LAB HEMETOLOGY METHOD 11/26/2024 7:56 AM EDT [facility] Comment:PLT: Normal Blood Venous blood specimen / Unknown Venipuncture / Unknown 11/26/2024 6:50 AM EDT 11/26/2024 7:06 AM EDT us Lashonda Boateng DELIVERY REP LAB BLOOD ORDERABLES Final Result [facility] [address] [place] [address], * (ABNORMAL) Complete blood count (11/25/2024 5:28 AM EDT) Only the most recent of2 resultswithin the time period is included. WBC 31.0(H) 4.8 - 10.8 K/mcL LAB HEMETOLOGY METHOD 11/25/2024 6:40 AM [facility] RBC 5.00 4.50 - 5.50 M/mcL LAB HEMETOLOGY METHOD 11/25/2024 6:40 AM [facility] Hemoglobin 15.8 13.5 - 17.5 g/dL LAB HEMETOLOGY METHOD 11/25/2024 6:40 AM [facility] Hematocrit 46.9 42.0 - 54.0 % LAB HEMETOLOGY METHOD 11/25/2024 6:40 AM [facility] MCV 93.4 79.0 - 98.0 FL LAB HEMETOLOGY METHOD 11/25/2024 6:40 AM [facility] MCH 31.5 27.0 - 32.0 pcg LAB HEMETOLOGY METHOD 11/25/2024 6:40 AM [facility] MCHC 33.7 32.0 - 37.0 g/dL LAB HEMETOLOGY METHOD 11/25/2024 6:40 AM [facility] RDW 13.6 11.0 - 15.0 % LAB HEMETOLOGY METHOD 11/25/2024 6:40 AM [facility] Platelets 342 130 - 400 K/mcL LAB HEMETOLOGY METHOD 11/25/2024 6:40 AM [facility] MPV 10.7 7.0 - 11.0 FL LAB HEMETOLOGY METHOD 11/25/2024 6:40 AM [facility] NRBC 0.0 <1.0 % LAB HEMETOLOGY METHOD 11/25/2024 6:40 AM [facility] NRBC Absolute 0.00 <0.10 K/mcL LAB HEMETOLOGY METHOD 11/25/2024 6:40 AM [facility] Blood Venous blood specimen / Unknown Venipuncture / Unknown 11/25/2024 5:28 AM EDT 11/25/2024 6:20 AM EDT Deisy MARTÍNEZ LAB BLOOD ORDERABLES Final Re sult Performing Organization Address City/[facility]/ZIP Co de Phone Number [facility] [address] [place] [address], [place] [phone] * Green LI heparin tube (11/24/2024 4:16 PM EDT) Extra Tube Hold for add-ons. 11/24/2024 6:01 PM EDT [facility] Comment:Auto resulted. Blood Venous blood specimen / Unknown 11/24/2024 4:16 PM EDT 11/24/2024 4:21 PM EDT Sonia Quezada MD LAB BLOOD ORDERABLES Final Resul t Performing Organization Address [facility]/ZIP Co de Phone Number [facility] [address] [place] [address], [place] [phone] * Tissue exam (11/24/2024 2:04 PM EDT) Only the most recent of2 resultswithin the time period is included. Final Diagnosis A. Lymph lode, right level 9, biopsy: One lymph node, negative for metastatic carcinoma (0/1). B. 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 C. Lymph Node, right level 4, biopsy: One lymph node, negative for metastatic carcinoma (0/1). D. Lung, Right Middle Lobe, lobectomy: Small cell neuroendocrine carcinoma. Spread through vascular spaces and lymph vascular invasion present. True parenchymal margin is close, 0.2 cm, but uninvolved. AJCC 8th ed. Stage [id number]. 4:54 PM EDT [facility] Comment Immunohistochemical stains are performed and are interpreted as follows: -INSM1 (D5): Positive, confirming neuroendocrine differentiation -Ki-67 (D5): Highlights approximately 65 to 70% of viable tumor nuclei, compatible with small cell carcinoma -CAM5.2 (A1, A2, C1): Negative for metastatic carcinoma. No tumor was identified on routine sections; cytokeratin done to exclude occult spread of small cell carcinoma in a background of lymphoid tissue. This pattern supports the above diagnoses. Controls stained appropriately. 4:54 PM EDT [facility] Gross Description A. Mediastinum, level 9 lymph lode, right: Labeled level 9 L mediastinum ID 1 . Received fresh for frozen section, is a rubbery, 1.5 cm in greatest diameter intact, bull-black, anthracotic portion of toño tissue. The specimen is bisected and a touch preparation of both surfaces is made. Half of the specimen is submitted for frozen section. The specimen is submitted in entirety in two cassettes, for permanent section. 1-frozen section residue, one piece 2-remaining tissue, one piece B. Mediastinum, level 7 lymph node: Labeled level 7 L mediastinum ID 2 . Received fresh, for frozen section is a 3.0 x 2.5 x 0.8 cm aggregate of fragmented bull-black anthracotic toño tissue with a small amount of attached soft, yellow, lobular adipose tissue. The specimen is sectioned. A touch preparation is made and plastic products sales representative sections are submitted for frozen section. The specimen is submitted in entirety in three cassettes, for permanent section. 1-frozen section residue, multiple pieces 2-3 remaining tissue, multiple pieces each C. Mediastinum, R4 Lymph Node: Labeled R4 lymph mediastinum . Received in formalin, with Telfa, is a soft to rubbery, anthracotic, 1.0 cm in greatest diameter portion of toño tissue with a small amount of attached adipose tissue. The specimen is trisected, wrapped in paper and submitted in entirety in one cassette, three pieces. D. Lung, Right Middle Lobe, lobe - stitch hanna true margin: Labeled lobe-st lung RML . Received in formalin is a 62 gram, 9.5 x 8.5 x 4.0 cm middle lobe of lung. There is a suture present per the requisition true margin . The pleural surface is smooth, red to purple and glistening. There are multiple staple lines extending from the hilum measuring up to 4.7 cm in length one of which contains a blue suture designating the true margin. The true margin is removed and inked green. The remaining staple lines are removed and inked sidney. There is a stapled bronchovascular margin which is removed en face. The lung is inflated with formalin and subsequently sectioned. The hilar region is contiguous with a circumscribed to slightly ill-defined, 1.8 x 1.5 x 1.2 cm saxena-white to bull mass. The mass abuts the pleural surface (inked blue in the region of the mass) and is located 0.2 cm from the true margin. The mass is located 0.55 cm from the closest additional stapled line (not a margin). There is blue to green dye surrounding the mass. The parenchyma surrounding the mass towards the hilum is consolidated. The remaining parenchyma is dark, red and spongiform with focal emphysematous changes. No other palpable or grossly identifiable nodules are noted. Lymph nodes are absent. A digital gross photograph is taken. Supervisor Fishing sections are submitted in twelve cassettes, including the entire mass. 1-bronchovascular margins, en face, two pieces 2-3 mass with pleural surface and stapled true margin, taken perpendicularly, one piece 4-mass with pleural surface including true margin and nine margin (inked sidney), taken perpendicularly, one piece. 5-remaining mass to pleural surface, two pieces 6-mass to uninvolved, one piece 7-uninvolved parenchyma directly adjacent to mass, one piece 8-10 consolidated parenchyma towards hilum surrounding mass (8-one piece, 9-10: two pieces each) 11-12 random lung, two pieces each TS 5 4:54 PM EDT [facility] Intraoperative Consultation A. Mediastinum, level 9 lymph lode, right: Negative. Dr. Obregon notified Dr. Quezada by phone 2:27pm IOC 2:08-2:27pm B. Mediastinum, level 7 lymph node: Positive for metastatic disease. Dr. Obregon notified Dr. Quezada by phone 2:58pm IOC 2:31-2:58pm 5 4:54 PM EDT [facility] Synoptic Checklist LUNG LUNG - All Specimens AJCC 9 - Protocol posted: 07/07/2024 SPECIMEN ?? Procedure: ?Lobectomy ?? Specimen Laterality: ?Right TUMOR ?? Tumor Focality: ?Single focus ?? Tumor Site: ?Middle lobe of lung ?? Tumor Size: ? Invasive Tumor Size: ?Greatest Dimension (Centimeters): 1.8 cm ? Additional Dimension (Centimeters): ?1.5 cm ? Additional Dimension (Centimeters): ?1.2 cm ?? Histologic Type: ?Small cell carcinoma ?? Histologic Grade: ?G4, undifferentiated ?? Spread Through Air Spaces (MONA): ?Present ?? Visceral Pleura Invasion: ?Not identified ?? Direct Invasion of Other Structures: ?Not applicable (no other structures present) ?? Treatment Effect: ?No known presurgical therapy ?? Lymphatic and / or Vascular Invasion: ?Present ? : ?Lymphatic invasion present MARGINS ?? Margin Status for Invasive Tumor: ?All margins negative for invasive tumor ? Closest Margin(s) to Invasive Tumor: ?Parenchymal ? Distance from Invasive Tumor to Closest Margin: ?0.2 cm ?? Margin Status for Non-Invasive Tumor: ?All margins negative for non-invasive tumor REGIONAL LYMPH NODES ?? Lymph Node(s) from Prior Procedures: ?Included ? Prior Lymph Node Procedure(s) Included: ?11 [id number] ?? Regional Lymph Node Status: ? : ?Tumor present in regional lymph node(s) ? Number of Lymph Nodes with Tumor: ?1 ? Toño Site(s) with Tumor: ?7: Subcarinal ? Number of Lymph Nodes Examined: ?4 ? Toño Site(s) Examined: ?4R: Lower paratracheal ? Toño Site(s) Examined: ?9R: Pulmonary ligament ? Toño Site(s) Examined: ?11R: Interlobar ? Toño Site(s) Examined: ?7: Subcarinal pTNM CLASSIFICATION (AJCC Version 9) ?? Reporting of pT, pN, and (when applicable) pM categories is based on information available to the pathologist at the time the report is issued. As per the AJCC (Chapter 1, 8th Ed.) it is the managing physician's responsibility to establish the final pathologic stage based upon all pertinent information, including but potentially not limited to this pathology report. ?? pT Category: ?pT1b ?? pN Category: ?pN2a 4:54 PM EDT [facility] Disclaimer NOTE: The immunohistochemical tests and in situ hybridization tests were developed and their performance characteristics were determined by [facility]. They have not been cleared [...] 10% NB formalin fixed and paraffin embedded. 4:54 PM EDT [facility] Lymph Node Mediastinal structure / Unknown 11/24/2024 2:04 PM EDT 11/24/2024 2:13 PM EDT Lymph node tissue specimen (specimen) Mediastinal structure / Unknown 11/24/2024 2:22 PM EDT 11/24/2024 2:34 PM EDT Lymph node tissue specimen (specimen) Mediastinal structure / Unknown 11/24/2024 2:34 PM EDT 11/24/2024 4:43 PM EDT Tissue specimen (specimen) Structure of middle lobe of right lung / Unknown 11/24/2024 3:21 PM EDT 11/24/2024 4:43 PM EDT us Sonia Quezada MD LAB PATHOLOGY ORDERABLES Final R esult [facility] [address] [place] [address], * Prepare RBC: 2 Units (11/24/2024 12:38 PM EDT) Product Code [id number] 11/25/2024 6:55 AM EDT [facility] Unit Number [id number] 11/26/19 6:55 AM EDT [facility] Crossmatch Compatible 11/24/2024 12:55 PM EDT [facility] Dispense Status Released From Crossmatch 11/25/2024 6:55 AM EDT [facility] Unit ABO Rh ANEG 11/25/2024 6:55 AM EDT [facility] Unit Expiration Date Time 11/25/2024 6:55 AM EDT [facility] Unit Blood Type 59911/25/2024 6:55 AM EDT [facility] Product Code [id number] 11/25/2024 6:56 AM EDT [facility] Unit Number [id number] 11/26/19 6:56 AM EDT [facility] Crossmatch Compatible 11/24/2024 12:56 PM EDT [facility] Dispense Status Released From Crossmatch 11/25/2024 6:56 AM EDT [facility] Unit ABO Rh ANEG 11/25/2024 6:56 AM EDT [facility] Unit Expiration Date Time [id number] 11/25/2024 6:56 AM EDT [facility] Unit Blood Type 0611/25/2024 6:56 AM EDT [facility] Blood Venous blood specimen / Unknown 11/24/2024 12:38 PM EDT 11/19/2024 10:10 AM EDT Deisy MARTÍNEZ BLOOD BANK PRODUCT ORDERABLES Final Result [facility] [address] [place] [address], [place] [phone] * TH AN ENDOTRACHEAL(NO CHARGE) (11/24/2024 12:27 PM EDT) Narrative Cecily Bose CRNA - 11/24/2024 12:27 PM EDT Cecily Bose CRNA ? 11/24/2024 12:28 PM General Information and Staff Patient location during procedure: OR Performed by: Cecily Bose CRNA Authorized by: Stanton Gutiérrez MD ?? Intubation Additional Comments Smooth induction, easy mask w/ 100 mm OPA (edentulous), Grade I view; ETT placed, verified & secured, VSS. ??-SOFIE Laureano Airway not difficult Urgency: elective Final Airway Details Successful airway: ETT Cuffed: yes Successful intubation technique: direct laryngoscopy Facilitating devices/methods: intubating stylet Endotracheal tube insertion site: oral Blade: Cisco Blade size: #3 ETT size (mm): 9.0 Cormack-Lehane Classification: grade I - full view of glottis Placement verified by: chest auscultation and capnometry Measured from: gums ETT to gums (cm): 22 Number of attempts at approach: 1 Ventilation between attempts: none Number of other approaches attempted: 0Final airway type: endotracheal airway Indications and Patient Condition Indications for airway management: anesthesia Spontaneous Ventilation: absent Sedation level: Yes Preoxygenated: yes Soft Tissue Damage: No Dentition Unchanged: Yes (Edentulous) Patient position: sniffing MILS maintained throughout Mask difficulty assessment: 2 - vent by mask + OA or adjuvant +/- NMBA us Stanton Gutiérrez MD ANESTHESIA ORDERABLES Final Re sult * CT Chest wo Contrast (11/24/2024 9:36 AM EDT) Anatomical Region Laterality Modality Body Computed Tomogra phy 11/24/2024 10:0 1 AM EDT Impressions 11/24/2024 10:19 AM EDT Extensive underlying chronic lung disease. There is a solid nodule abutting the minor fissure in the central aspect of the middle lobe. This may have minimally decreased in size when compared to 08/05/24 but was not present 07/31/22. This demonstrated metabolic activity on previous PET/CT. There are some mediastinal and hilar lymph nodes. ?? -------- FINAL REPORT -------- Dictated By: Ahsan May Dictated Date: 11/24/2024 10:01 ET Assigned Physician: Ahsan May Reviewed and Electronically Signed By: Ahsan May Signed Date: 11/24/2024 10:19 ET Workstation ID: [id number] Transcribed By: Self Edit Transcribed Date: 11/24/2024 10:01 ET Narrative 11/24/2024 10:19 AM EDT EXAMINATION: CT CHEST WITHOUT CONTRAST CLINICAL INFORMATION: Pulmonary nodule. ??Evaluate for interval changes. COMPARISON: Report of PET/CT indicates FDG avid right middle lobe nodule ?? TECHNIQUE: Multidetector CT. Examination of the chest. Examination of the chest without IV contrast. Reformatting in the coronal and sagittal planes. DLP: 945 mGy-cm Dose optimization was performed including the use of low-dose iterative reconstruction technique with automatic exposure control based on patient size. Type of contrast: None Volume of IV contrast: None Volume of contrast discarded: 0 mL FINDINGS: LUNG: No suspicious abnormality of the trachea or mainstem bronchi. There are secretions in the dependent within the mid trachea. There are secretions within some of the airways in the central aspect of the middle lobe and there is extensive small and moderate-sized airway thickening in the lower lobes. There is an irregular solid nodule in the central upper aspect of the middle lobe abutting the minor fissure without calcification or cavitation 11/24/24-1.8 x 1.1 x 1.4 cm 08/05/24- ??2.2 x 1.1 x 1.6 cm 07/31/22-not present No new suspicious mass or nodule. There is moderate to marked centrilobular and paraseptal emphysema. There is particular opacity in the dependent aspect of the mid and lower lung zones. There is some groundglass disease in the lower lung zones dependently which could be some atelectasis. There is no convincing honeycomb formation. MEDIASTINUM: ??There are some mediastinal lymph nodes and there are some right hilar lymph nodes. Retrocaval pretracheal lymph node 11/24/24-1.0 cm 08/05/24-0.9 cm 07/31/22-1.2 cm CARDIAC: The heart is not enlarged. There is a small amount of pericardial fluid or thickening anteriorly which is not significantly changed. ?? CORONARY CALCIFICATION: ??There are moderate coronary calcifications. VASCULAR: There is no thoracic aortic aneurysm. The central pulmonary arteries are prominent. ?? PLEURA: There is no pleural fluid or pneumothorax ?? AXILLA/CHEST WALL: There are no enlarged axillary lymph nodes. No chest wall mass demonstrated. Mild gynecomastia. The PET CT suggested some nonspecific activity in axillary lymph nodes. The CT does not demonstrate suspicious enlarged lymph nodes. ?? VISUALIZED UPPER ABDOMEN: ??There is a 3.4 cm low attenuating lesion in the left lower liver. This was not suspicious on PET/CT. This was present on 07/31/22. Unchanged minimal nodularity of the adrenal glands. There is a nonobstructing mid left renal calculus and a low attenuating lesion in the medial posterior mid left kidney not completely included but possibly a cyst. MUSCULOSKELETAL: No suspicious focal bony lesion. ??Hypoplastic left first rib. Procedure Note Ahsan May MD - 11/24/2024 EXAMINATION: CT CHEST WITHOUT CONTRAST CLINICAL INFORMATION: Pulmonary nodule. Evaluate for interval changes. COMPARISON: Report of PET/CT indicates FDG avid right middle lobe nodule TECHNIQUE: Multidetector CT. Examination of the chest. Examination of the chest without IV contrast. Reformatting in the coronal and sagittal planes. DLP: 945 mGy-cm Dose optimization was performed including the use of low-dose iterativereconstruction technique with automatic exposure control based on patientsize. Type of contrast: None Volume of IV contrast: None Volume of contrast discarded: 0 mL FINDINGS: LUNG: No suspicious abnormality of the trachea or mainstem bronchi. Thereare secretions in the dependent within the mid trachea. There aresecretions within some of the airways in the central aspect of the middlelobe and there is extensive small and moderate-sized airway thickening inthe lower lobes. There is an irregular solid nodule in the central upper aspect of themiddle lobe abutting the minor fissure without calcification orcavitation 11/24/24-1.8 x 1.1 x 1.4 cm 08/05/24- 2.2 x 1.1 x 1.6 cm 07/31/22-not present No new suspicious mass or nodule. There is moderate to marked centrilobular and paraseptal emphysema. Thereis particular opacity in the dependent aspect of the mid and lower lungzones. There is some groundglass disease in the lower lung zonesdependently which could be some atelectasis. There is no convincinghoneycomb formation. MEDIASTINUM: There are some mediastinal lymph nodes and there are someright hilar lymph nodes. Retrocaval pretracheal lymph node 11/24/24-1.0 cm 08/05/24-0.9 cm 07/31/22-1.2 cm CARDIAC: The heart is not enlarged. There is a small amount of pericardialfluid or thickening anteriorly which is not significantly changed. CORONARY CALCIFICATION: There are moderate coronary calcifications. VASCULAR: There is no thoracic aortic aneurysm. The central pulmonaryarteries are prominent. PLEURA: There is no pleural fluid or pneumothorax AXILLA/CHEST WALL: There are no enlarged axillary lymph nodes. No chestwall mass demonstrated. Mild gynecomastia. The PET CT suggested some nonspecific activity in axillary lymph nodes.The CT does not demonstrate suspicious enlarged lymph nodes. VISUALIZED UPPER ABDOMEN: There is a 3.4 cm low attenuating lesion in theleft lower liver. This was not suspicious on PET/CT. This was present on07/31/22. Unchanged minimal nodularity of the adrenal glands. There is anonobstructing mid left renal calculus and a low attenuating lesion in themedial posterior mid left kidney not completely included but possibly acyst. MUSCULOSKELETAL: No suspicious focal bony lesion. Hypoplastic left firstrib. IMPRESSION: Extensive underlying chronic lung disease. There is a solid nodule abutting the minor fissure in the central aspectof the middle lobe. This may have minimally decreased in size whencompared to 08/05/24 but was not present 07/31/22. This demonstrated metabolicactivity on previous PET/CT. There are some mediastinal and hilar lymph nodes. -------- FINAL REPORT -------- Dictated By: Ahsan May Dictated Date: 11/24/2024 10:01 ET Assigned Physician: Ahsan May Reviewed and Electronically Signed By: Ahsan May Signed Date: 11/24/2024 10:19 ET Workstation ID: [id number] Transcribed By: Self Edit Transcribed Date: 11/24/2024 10:01 ET us Lashonda Boateng NP IMG CT PROCEDURES Final Res ult * Activated partial thromboplastin time (11/19/2024 9:50 AM EDT) Only the most recent of2 resultswithin the time period is included. aPTT 33.3 24.1 - 39.3 sec LAB COAGULATION METHOD 11/19/2024 10:40 AM EDT [facility] Blood Venous blood specimen / Unknown Venipuncture / Unknown 11/19/2024 9:50 AM EDT 11/19/2024 10:10 AM EDT Sonia Quezada MD LAB BLOOD ORDERABLES Final Resul t [facility] [address] [place] [address], [place] [phone] * Prothrombin time with INR (11/19/2024 9:50 AM EDT) Only the most recent of2 resultswithin the time period is included. Protime 12.3 10.6 - 13.9 sec LAB COAGULATION METHOD 11/19/2024 10:40 AM EDT [facility] INR 1.0 LAB COAGULATION METHOD 11/19/2024 10:40 AM EDT [facility] Blood Venous blood specimen / Unknown Venipuncture / Unknown 11/19/2024 9:50 AM EDT 11/19/2024 10:10 AM EDT us Sonia Quezada MD LAB BLOOD ORDERABLES Final Resul t Performing Organization Address [facility]/ZIP Co de Phone Number [facility] [address] [place] [address], [place] [phone] * Type and screen (11/19/2024 9:50 AM EDT) Only the most recent of2 resultswithin the time period is included. ABO Group A 11/19/2024 11:28 AM EDT [facility] Rh Type Negative 11/19/2024 11:28 AM EDT [facility] Antibody Screen Negative 11/19/2024 11:28 AM EDT [facility] Blood Venous blood specimen / Unknown Venipuncture / Unknown 11/19/2024 9:50 AM EDT 11/19/2024 10:10 AM EDT us Sonia Quezada MD LAB BLOOD BANK TEST ORDERABLES F inal Result Performing Organization Address City/[facility]/ZIP Co de Phone Number [facility] [address] [place] [address], [place] [phone] * (ABNORMAL) Culture bronchial with gram stain (10/13/2024 2:53 PM EDT) Bronchial Culture Streptococcus pneumoniae(A) SAADIA 10/17/2024 10:24 AM EDT [facility] Comment: For S. pneumoniae (non-meningitis) [...] Moderate Polymorphonuclear leukocytes 10/17/2024 10:24 AM EDT [facility] Gram Stain Result No Epithelial cells 10/17/2024 10:24 AM EDT [facility] Gram Stain Result No organisms seen 10/17/2024 10:24 AM EDT [facility] Wash Structure of middle lobe [...] MICROBIOLOGY - GENERAL ORDER VIPUL Final Result [facility] [address] [place] [address], * Concentration (10/13/2024 2:53 PM EDT) AFB Concentration Performed 025 9:05 AM EDT [facility] Wash Structure of middle lobe of right lung / Unknown 10/13/2024 2:53 PM EDT 10/13/2024 3:49 PM EDT Narrative [facility] - 11/26/2024 9:05 AM EDT Performed at: ??01 - [facility] [address] ??[id number] Yam Curer: Domi Rodriguez MD, Phone: ??[phone] Sonia Quezada MD LAB BLOOD ORDERABLES Edited Resu lt - Final Performing Organization Address City/[facility] Co de Phone Number [facility] * Culture, afb and smear with reflex to identification and susceptibility (10/13/2024 2:53 PM EDT) AFB Specimen Processing Concentration 11/26/2024 9:05 AM EDT [facility] Acid Fast Smear Negative 11/26/2024 9:05 AM EDT [facility] Acid Fast Culture Negative 11/26/2024 9:05 AM EDT [facility] Comment:No acid fast bacilli isolated after 6 weeks. Wash Structure of middle lobe of right lung / Unknown 10/13/2024 2:53 PM EDT 10/13/2024 3:49 PM EDT Narrative [facility] - 11/26/2024 9:05 AM EDT Performed at: ??01 - [facility] [address] ??[id number] Yam Curer: Domi Rodriguez MD, Phone: ??[phone] Sonia Quezada MD LAB MICROBIOLOGY - GENERAL ORDER VIPUL Final Result Performing Organization Address [facility] de Phone Number [facility] * Acid fast bacilli stain (10/13/2024 2:53 PM EDT) AFB Stain Result No Acid fast bacilli seen on direct smear (Fuchsin method, 1000x) No Acid Fast Bacilli seen on direct smear 10/13/2024 6:46 PM EDT [facility] Wash Structure of middle lobe of right lung / Unknown 10/13/2024 2:53 PM EDT 10/13/2024 3:49 PM EDT us Sonia Quezada MD LAB MICROBIOLOGY - GENERAL ORDER VIPUL Final Result Performing Organization Address City/[facility]/ZIP Co de Phone Number [facility] [address] [place] [address], [place] [phone] * Culture fungal, other (10/13/2024 2:53 PM EDT) Culture, Fungus Negative for Fungus after 4 Weeks 11/08/2024 8:17 AM EDT [facility] Wash Structure of middle lobe of right lung / Unknown 10/13/2024 2:53 PM EDT 10/13/2024 3:49 PM EDT us Sonia Quezada MD LAB MICROBIOLOGY - GENERAL ORDER VIPUL Final Result Performing Organization Address [facility] Co de Phone Number [facility] [address] [place] [address], [place] [phone] * Non-gynecologic cytology (10/13/2024 2:50 PM EDT) Addendum A) Synaptophysin and chromogranin performed on concurrent right middle lobe fine needle aspirate and not performed on this bronchial brush. See [id number] for results. 8:54 AM EDT [facility] Addendum electronically signed by Eagle [...] concurrent right middle lobe fine needle aspirate [id number]. 8:54 AM EDT [facility] Comment Additional tissue sampling is recommended for full evaluation. 8:54 AM EDT [facility] Specimen A Adequacy Satisfactory for evaluation 8:54 AM [facility] Specimen B Adequacy Satisfactory for evaluation 8:54 AM [facility] Specimen C Adequacy Satisfactory for evaluation 8:54 AM [facility] Gross Description A. Lung, Right Middle [...] fixation time 10 hours. 8:54 AM EDT [facility] Disclaimer NOTE: The immunohistochemical tests and in situ hybridization tests were developed and their performance characteristics were determined by [facility]. They have not been cleared [...] paraffin embedded. Technical cytopathology services provided by [facility], at [address] [place] [address] (CLIA # [id number]/Eagle Love MD, [employer]urb[employer] Service Technician.) 5 8:54 AM EDT [facility] Brushing Structure of middle lobe [...] CYTOLOGY ORDERABLES Edited R esult - Final [facility] [address] [place] [address], [place] [phone] * Fine needle aspiration (10/13/2024 2:32 PM [...] Negative for malignant cells. 4:31 PM EDT [facility] Comment Full evaluation is limited [...] for full evaluation. 5 4:31 PM EDT [facility] Specimen A Adequacy Satisfactory for evaluation 5 4:31 PM EDT [facility] Specimen B Adequacy Satisfactory for evaluation 5 4:31 PM T [facility] Specimen C Adequacy Unsatisfactory for Evaluation/Unsuccessf ul attempt 5 4:31 PM EDT [facility] Specimen D Adequacy Satisfactory for evaluation 5 4:31 PM T [facility] Gross Description A. Lung, Right [...] formalin @11:00-total formalin fixation time 10 hours. 5 4:31 PM EDT [facility] Disclaimer NOTE: The immunohistochemical tests and in situ hybridization tests were developed and their performance characteristics were determined by [facility]. They have not been cleared [...] paraffin embedded. Technical cytopathology services provided by [facility], at [address] [place] [address] (CLIA # [id number]/Eagle Love MD, Wind Turbine Service Technician.) 4:31 PM EDT [facility] Fine Needle Aspirate Structure of [...] MD LAB PATHOLOGY ORDERABLES Final R esult [facility] [address] [place] [address], * TH AN ENDOTRACHEAL(NO CHARGE) (10/13/2024 2:06 PM EDT) Lima Hsu CRNA - 10/13/2024 2:06 PM EDT Lima Mcmanus CRNA ? 10/13/2024 ??2:07 PM General Information and Staff Patient location during procedure: OR Anesthesiologist: Leticia Green MD Resident/APPLIED TECHNOLOGIST: Lima Mcmanus CRNA Performed: resident/SOFIE/CAA Performed by: Lima Mcmanus CRNA Authorized by: Leticia Green MD ?? Intubation Airway not difficult [...] GEMUSE QTc 426 ms GEMUSE P Wave [place] 66 degrees GEMUSE R [place] 42 degrees GEMUSE T [place] 59 degrees GEMUSE ECG Interpretation Sinus bradycardia with Premature supraventricular complexes Junctional ST depression, probably normal Borderline ECG When compared with ECG of 17-MAY-2024 07:27, No significant changes are noted Confirmed by RASHAD PEREZ ([id number]) on 10/11/2024 3:04:30 PM GEM[facility] 10/11/2024 1:25 PM EDT 10/11/2024 3:04 PM EDT us Sonia Quezada MD ECG ORDERABLES Final Result GEM[facility] from Last 3 Months Insurance [employer] MEDICARE Advance Directives * Full Code - Default (Latest Code Status on File) Date Activated Date Inactivated Comments 11/30/2024 8:36 AM 12/03/2024 5:49 PM This is order is used when code status has not been discussed with the patient, or code status is otherwise unknown/unconfirmed To update the patient's code status, place a code status order. Do not modify or discontinue any currently active code status orders. * Full Code - Default Date Activated Date Inactivated Comments 11/24/2024 6:39 PM 11/27/2024 4:22 PM This is order is used when code status has not been discussed with the patient, or code status is otherwise unknown/unconfirmed To update the patient's code status, place a code status order. Do not modify or discontinue any currently active code status orders. * Full Code - Default Date Activated Date Inactivated Comments 11/24/2024 11:33 AM 11/24/2024 6:39 PM This is ord er is used when code status has not been discussed with the patient, or code status is otherwise unknown/unconfirmed To update the patient's code status, place a code status order. Do not modify or discontinue any currently active code status orders. Care Teams Test Developer Relationship Specialty Start Date End Date Luc Bergeron MD [address] [place] [phone] PCP - General Family Medicine 10/11/24
== END 2024-12-27 15:40 | disposition home or self-care (01) ==
LOC: HO.HMCFM 14:32
PROVIDERS: PCP Family Medicine; Visit Provider Family Medicine
DX: J44.9 Chronic obstructive pulmonary disease, unspecified (principal); C34.2 Malignant neoplasm of middle lobe, bronchus or lung; I48.92 Unspecified atrial flutter; Z90.2 Acquired absence of lung [part of]; F17.200 Nicotine dependence, unspecified, uncomplicated

== ENCOUNTER → 2024-12-27 14:32 | Outpatient (BNVA) | payer MEDICARE, SELFPAY | PROVIDERS: PCP Family Medicine; Visit Provider Family Medicine | DX: C34.2 Malignant neoplasm of middle lobe, bronchus or lung (principal); I48.92 Unspecified atrial flutter; J44.9 Chronic obstructive pulmonary disease, unspecified; F17.200 Nicotine dependence, unspecified, uncomplicated; Z90.2 Acquired absence of lung [part of]; Z71.6 Tobacco abuse counseling | CPT/HCPCS: 96127; 99212 ==